=== PATIENT | male | born 1955 | race Caucasian/White ===

== ENCOUNTER 2016-07-02 12:39 | Observation (INO) ==
[2016-07-02] MEDS ORDERED: Aspirin 325 MG TABLET PO ONE (13:19)
--- NOTE | 2016-07-02 13:24 | Emergency Department Note ---
Disposition Clinical Impression: Vertigo, Disequilibrium Fatigue Qualifiers: Fatigue type: unspecified Qualified Code(s): R53.83 - Other fatigue Disposition: Admitted As Inpatient Condition: Good Referrals: Pattie Bloom CNP [Primary Care Provider] - Forms: ED Satisfaction Letter Time of Disposition: 19:06 Dizziness HPI - General Chief Complaint: ED Dizziness Stated Complaint: Dizzy, falls Time Seen by Provider: 07/02/16 12:52 Source: patient Mode of arrival: ambulatory Limitations: no limitations Nursing Notes Reviewed: Yes Vital Signs Reviewed: Yes - History of Present Illness HPI Narrative: Patient is a 60 year old male with PMHx of CAD, previous [place], previous triple bypass, HTN, high cholesterol, previous stroke, TIA. Patient presents today due to vertigo. Patient states that this morning, he felt dizzy and felt that the room was spinning. When getting up to walk, he felt off balance and fell over. He denies any loss of consciousness. No numbness, tingling, weakness. He does have generalized fatigue. Denies any chest pain, shortness of breath, abdominal pain, fevers, nausea, vomiting. - Related Data Home Medications Medication Instructions Recorded Confirmed Albuterol Sulfate [Proair Hfa] 2 puff IH Q4H PRN 07/02/16 07/02/16 Aspirin 81 mg PO DAILY 07/02/16 07/02/16 Atorvastatin [Lipitor] 40 mg PO HS 07/02/16 07/02/16 Budesonide/Formoterol 160/4.5 2 puff IH BIDR 07/02/16 07/02/16 [Symbicort 160/4.5] Carvedilol [Coreg] 25 mg PO BID 07/02/16 07/02/16 Clopidogrel [Plavix] 75 mg PO DAILY 07/02/16 07/02/16 Furosemide [Lasix] 20 mg PO DAILY 07/02/16 07/02/16 Losartan [Cozaar] 25 mg PO DAILY 07/02/16 07/02/16 Allergies Allergy/AdvReac Type Severity Reaction Status Date / Time cephalexin [From Keflex] Allergy Swelling Verified 06/26/15 04:35 of Lip/Tongue/Throat Penicillins Allergy Hives Verified 06/26/15 04:35 lisinopril AdvReac Cough Verified 07/02/16 16:05 Constitutional: Denies: fever ENT ED: Denies: ear pain, throat pain Cardiovascular: Denies: chest pain, palpitations, dyspnea on exertion Respiratory: Denies: cough, dyspnea, wheezes Gastrointestinal: Denies: abdominal pain, nausea Genitourinary: Denies: urgency, dysuria, frequency Musculoskeletal: Denies: back pain, neck pain Integumentary: Denies: rash Neurological: Reports: vertigo. Denies: headache, weakness, numbness, paresthesias Psychiatric: Denies: anxiety, depression Past Medical History - Past Medical History Attestation: Yes The following information was validated with the patient. Source: patient Medical history: Reports: CHF, COPD, coronary artery disease, hyperlipidemia, hypertension, myocardial infarction Psychiatric history: Reports: no psych history - Social History Smoking Status: Former smoker Smokeless Tobacco Status: No Alcohol use: Reports: occasionally Drug use: Reports: none Physical Exam - General Limitations: no limitations General appearance: alert, in no apparent distress - Head Head exam: atraumatic, normocephalic, normal inspection - Eye Eye exam: Present: normal appearance, PERRL, EOMI - ENT ENT exam: normal exam, normal oropharynx, mucous membranes moist - Neck Neck exam: Present: normal inspection, full ROM, trachea midline - Chest Chest inspection: Present: normal inspection, symmetric chest wall rise - Respiratory Respiratory exam: Present: normal lung sounds bilaterally. Absent: respiratory distress, wheezes, stridor - Cardiovascular Cardiovascular exam: Present: regular rate, normal rhythm, normal heart sounds - Abdominal Exam Abdominal exam: Present: soft, Non-Tender. Absent: tenderness, distention, guarding, rebound, rigidity - Extremities Exam Extremities exam: Present: normal inspection, full ROM. Absent: tenderness, pedal edema - Back Exam Back exam: Present: normal inspection, full ROM. Absent: tenderness - Neurological Exam Neurological exam: Present: alert, oriented X3, CN II-XII intact. Absent: motor sensory deficit - Psychiatric Psychiatric exam: Present: normal affect, normal mood - Skin Skin exam: Present: warm, dry, intact, normal color Course Course Narrative: Vitals within normal limits on exam. Physical exam is fairly benign. Not able to reproduce vertigo symptoms with moving the patient's head left and right. No focal neurologic deficits. Due to extensive cardiac history, we will obtain cardiac workup. We will also obtain head CT due to vertigo and generalized fatigue. 16:22 workup was negative. Head CT negative, chest x-ray negative. Patient still having vertigo symptoms when lying down. States that the meclizine did not help. He is also having disequilibrium with gait. I talked to the hospitalist and she requested that we get a stat MRI of the head/brain to assess for any cerebellar stroke. This is been ordered. Patient's been updated and is agreeable with plan. 19:05 imaging was negative for any acute abnormality. MRI of the brain does show old cerebellar infarcts. Patient is still having significant vertigo despite medications and generalized fatigue. We will admit for further cardiac workup and further vertigo workup mgmt. Chest X-Ray 07/02/16 13:16 IMPRESSION: No evidence of acute disease. D/ / Isak Villalta MD / Isak Villalta MD Interpreting Provider: Isak Villalta MD Head CT 07/02/16 13:16 IMPRESSION: No acute intracranial abnormality. Mild chronic microvascular disease. 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 D/ / Wilfredo Kingston MD / Wilfredo Kingston MD Interpreting Provider: Wilfredo Kingston MD Brain MRI 07/02/16 16:18 IMPRESSION: No acute intracranial abnormality. 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 Mild parenchymal volume loss. Mild chronic microvascular disease. Unremarkable noncontrast MRA of the head and neck. D/ / Wilfredo Kingston MD / Wilfredo Kingston MD Interpreting Provider: Wilfredo Kingston MD Head MRA 07/02/16 16:18 IMPRESSION: No acute intracranial abnormality. 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 Mild parenchymal volume loss. Mild chronic microvascular disease. Unremarkable noncontrast MRA of the head and neck. D/ / Wilfredo Kingston MD / Wilfredo Kingston MD Interpreting Provider: Wilfredo Kingston MD Neck MRA 07/02/16 16:18 IMPRESSION: No acute intracranial abnormality. 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 Mild parenchymal volume loss. Mild chronic microvascular disease. Unremarkable noncontrast MRA of the head and neck. D/ / Wilferdo Kingston MD / Wilfredo Kingston MD Interpreting Provider: Wilfredo Kingston MD Vital Signs Temperature 97.2 F L 07/02/16 12:41 Pulse Rate 63 07/02/16 12:41 Respiratory Rate 16 07/02/16 12:41 Blood Pressure 124/75 07/02/16 12:41 O2 Sat by Pulse Oximetry 93 L 07/02/16 12:41 Temperature 97.2 F L 07/02/16 12:41 Pulse Rate 65 07/02/16 18:46 Respiratory Rate 18 07/02/16 18:46 Blood Pressure 157/94 07/02/16 18:46 O2 Sat by Pulse Oximetry 95 07/02/16 18:46 Oxygen Delivery Oxygen Delivery Room Air Dizziness - MDM Narrative Medical decision making narrative: I examined this patient and my medical decision-making was reviewed with the CREATIVE/ART DIRECTOR/PA/Advanced Practice Nurse/Resident Physician. I agree with the documented findings, disposition and treatment plan as described except to the extent set forth below. Follow this patient with Dr. Barksdale, agree with his evaluation management plan, supervise care the patient's stay. Patient episode today where he had fallen he was vertiginous. He said he did not lose consciousness denies any injuries. No history of chronic falls nor vertigo. He has no focal deficits on exam here. Getting a laboratory workup and then we will reassess. He is in agreement with this plan. Vitals within normal limits on exam. Physical exam is fairly benign. Not able to reproduce vertigo symptoms with moving the patient's head left and right. No focal neurologic deficits. Due to extensive cardiac history, we will obtain cardiac workup. We will also obtain head CT due to vertigo and generalized fatigue. 16:22 workup was negative. Head CT negative, chest x-ray negative. Patient still having vertigo symptoms when lying down. States that the meclizine did not help. He is also having disequilibrium with gait. I talked to the hospitalist and she requested that we get a stat MRI of the head/brain to assess for any cerebellar stroke. This is been ordered. Patient's been updated and is agreeable with plan. 19:05 imaging was negative for any acute abnormality. MRI of the brain does show old cerebellar infarcts. Patient is still having significant vertigo despite medications and generalized fatigue. We will admit for further cardiac workup and further vertigo workup mgmt. Chest X-Ray 07/02/16 13:16 IMPRESSION: No evidence of acute disease. D/ / Isak Villalta MD / Iska Villalta MD Interpreting Provider: Isak Villalta MD Head CT 07/02/16 13:16 IMPRESSION: No acute intracranial abnormality. Mild chronic microvascular disease. 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 D/ / Wilfredo Kingston MD / Wilfredo Kingston MD Interpreting Provider: Wilfredo Kingston MD 1600 hrs.: Spoke with the patient and he and the daughter agree with admission. Spoke with the hospital service area they will admit patient. director of business services aware. 1620 hrs.: Spoke with hospitalist that one an MRI of the head before they take the patient onto their service. Spoke with MRI and they can do the study. - Medical Records Medical records reviewed: Yes I reviewed the patient's medical records. - Lab Data Lab results reviewed: Yes I reviewed the patient's lab results. Result diagrams: 07/02/16 13:44 07/02/16 13:44 Lab Results 07/02/16 07/02/16 07/02/16 Range/Units 13:44 13:44 13:44 WBC 5.3 (4.3-11.1) K/mcL RBC 5.08 (4.19-5.50) M/mcL Hgb 14.7 (12.9-16.9) g/dL Hct 44.2 (37.5-50.1) % MCV 87.0 (83.0-100.0) fL MCH 28.9 (28.0-33.3) pg MCHC 33.3 (31.6-35.5) g/dL RDW 13.6 (11.5-14.5) % Plt Count 169 (140-400) K/mcL MPV 10.6 (9.4-12.4) fL Immature Gran % 0.6 (0-4) % Seg Neutrophils % 63.4 % Lymphocytes % 25.3 % Monocytes % 5.8 % Eosinophils % 4.1 % Basophils % 0.8 % Neutrophils # 3.4 (1.6-8.9) K/mcL Lymphocytes # 1.4 (0.6-4.6) K/mcL Monocytes # 0.3 (0.0-1.3) K/mcL Eosinophils # 0.2 (0.0-0.6) K/mcL Basophils # 0.0 (0.0-0.2) K/mcL PT (9.4-12.1) Seconds INR APTT (26.0-36.0) Seconds Sodium 138 (136-145) mEq/L Potassium 4.5 (3.5-4.5) mEq/L Chloride 103 (98-109) mEq/L Carbon Dioxide 27 (19-29) mEq/L BUN 21 (8-26) mg/dL Creatinine 1.64 H (0.72-1.25) mg/dL Est GFR ( Amer) 52 L (> 60) Est GFR (Non-Af Amer) 43 L (> 60) BUN/Creatinine Ratio 13 (6-26) Glucose 219 H (70-99) mg/dL Calculated Osmolality 296 (280-300) Calcium 9.2 (8.6-10.8) mg/dL Troponin I 0.01 (0-0.03) ng/mL 07/02/16 Range/Units 13:44 WBC (4.3-11.1) K/mcL RBC (4.19-5.50) M/mcL Hgb (12.9-16.9) g/dL Hct (37.5-50.1) % MCV (83.0-100.0) fL MCH (28.0-33.3) pg MCHC (31.6-35.5) g/dL RDW (11.5-14.5) % Plt Count (140-400) K/mcL MPV (9.4-12.4) fL Immature Gran % (0-4) % Seg Neutrophils % % Lymphocytes % % Monocytes % % Eosinophils % % Basophils % % Neutrophils # (1.6-8.9) K/mcL Lymphocytes # (0.6-4.6) K/mcL Monocytes # (0.0-1.3) K/mcL Eosinophils # (0.0-0.6) K/mcL Basophils # (0.0-0.2) K/mcL PT 11.3 (9.4-12.1) Seconds INR 1.0 APTT 31.6 (26.0-36.0) Seconds Sodium (136-145) mEq/L Potassium (3.5-4.5) mEq/L Chloride (98-109) mEq/L Carbon Dioxide (19-29) mEq/L BUN (8-26) mg/dL Creatinine (0.72-1.25) mg/dL Est GFR ( Amer) (> 60) Est GFR (Non-Af Amer) (> 60) BUN/Creatinine Ratio (6-26) Glucose (70-99) mg/dL Calculated Osmolality (280-300) Calcium (8.6-10.8) mg/dL Troponin I (0-0.03) ng/mL - Radiology Data Radiology results reviewed: Yes I reviewed the patient's radiology results. Chest X-Ray 07/02/16 13:16 IMPRESSION: No evidence of acute disease. D/ / Isak Villalta MD / Isak Villalta MD Interpreting Provider: Isak Villalta MD Head CT 07/02/16 13:16 IMPRESSION: No acute intracranial abnormality. Mild chronic microvascular disease. 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 D/ / Wilfredo Kingston MD / Wilfredo Kingston MD Interpreting Provider: Wilfredo Kingston MD Brain MRI 07/02/16 16:18 IMPRESSION: No acute intracranial abnormality. 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 Mild parenchymal volume loss. Mild chronic microvascular disease. Unremarkable noncontrast MRA of the head and neck. D/ / Wilfredo Kingston MD / Wilfredo Kingston MD Interpreting Provider: Wilfredo Kingston MD Head MRA 07/02/16 16:18 IMPRESSION: No acute intracranial abnormality. 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 Mild parenchymal volume loss. Mild chronic microvascular disease. Unremarkable noncontrast MRA of the head and neck. D/ / Wilfredo Kingston MD / Wilfredo Kingston MD Interpreting Provider: Wilfredo Kingston MD Neck MRA 07/02/16 16:18 IMPRESSION: No acute intracranial abnormality. 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 Mild parenchymal volume loss. Mild chronic microvascular disease. Unremarkable noncontrast MRA of the head and neck. D/ / Wilfredo Kingston MD / Wilfredo Kingston MD Interpreting Provider: Wilfredo Kingston MD - EKG Data EKG attestation: Yes I reviewed and interpreted this EKG. EKG results narrative: 07/02/2016 at 12:56. Normal sinus rhythm. Rate 63. QTC 421. QRS duration 110. There is some ST depression and T-wave inversion in aVL, there is also ST elevation in lead 3 and aVF that are 0.5 mm, all of these changes are present on previous EKG on 06/26/2015 [facility] Situation: Demographics, MOA Background: Presenting Complaint, Relevant PMH, Meds, & Allergies Assessment: Vital Signs, Course and respsone to treatment, Exam Concerns, Patient/Family Expectation, Pertinant Lab Results, Outstanding Labs Recommendation: Barrier(s) to disposition, Recommendation based on pending studies, treatments, or consults Angela Report Given to: Dr. Robert Miller Repor Time: 19:06
[2016-07-02 13:58] LABS: Basophils % 0.8 %; Eosinophils # 0.2 K/mcL (0.0-0.6); Eosinophils % 4.1 %; Hematocrit 44.2 % (37.5-50.1); Hemoglobin 14.7 g/dL (12.9-16.9); Immature Granulocytes % 0.6 % (0-4); Lymphocytes # 1.4 K/mcL (0.6-4.6); Lymphocytes % 25.3 %; Mean Corpuscular HGB Conc 33.3 g/dL (31.6-35.5); Mean Corpuscular Hemoglobin 28.9 pg (28.0-33.3); Mean Platelet Volume 10.6 fL (9.4-12.4); Monocytes # 0.3 K/mcL (0.0-1.3); Monocytes % 5.8 %; Neutrophils # 3.4 K/mcL (1.6-8.9); Platelet Count 169 K/mcL (140-400); Red Blood Count 5.08 M/mcL (4.19-5.50); Red Cell Distribution Width 13.6 % (11.5-14.5); Segmented Neutrophils % 63.4 %
[2016-07-02 14:03] LABS: Prothrombin Time 11.3 Seconds (9.4-12.1)
[2016-07-02 14:05] LABS: Activated Partial Thrombo Time 31.6 Seconds (26.0-36.0)
[2016-07-02 14:12] LABS: Calcium 9.2 mg/dL (8.6-10.8); Potassium 4.5 mEq/L (3.5-4.5)
--- NOTE | 2016-07-02 16:47 | Electrocardiograph Report ---
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
[2016-07-02] MEDS ORDERED: Naloxone 0.4 MG/ML INJ IVP PRN (19:33)
[2016-07-02] MEDS ORDERED: Ondansetron 4 MG/2 ML VIAL IVP PRN (19:33)
[2016-07-02] MEDS ORDERED: Pantoprazole 40 MG VIAL IVP STA (19:33)
[2016-07-02] MEDS ORDERED: *HR* OxyCODONE Immed Rel 5 MG TABLET PO PRN (19:33)
[2016-07-02] MEDS ORDERED: Acetaminophen 325 MG TABLET PO PRN (19:33)
[2016-07-02] MEDS ORDERED: *HR* Morphine 2 MG/ML SYRINGE IVP PRN (19:33)
[2016-07-02] MEDS ORDERED: Mag Hydrox/Al Hydrox/Simeth 30 ML UDC PO PRN (19:33)
[2016-07-02] MEDS ORDERED: Albuterol 2.5 MG/3 ML NEBULIZER IH PRN (19:43)
--- NOTE | 2016-07-02 19:53 | Internal Med History&Physical ---
Date of Encounter: 07/02/16 Time of Encounter: 19:30 Assessment and Plan (1) Positional vertigo Status: Acute . Qualifiers: Laterality: unspecified laterality Qualified Code(s): H81.10 - Benign paroxysmal vertigo, unspecified ear (2) Postural dizziness with presyncope Status: Acute . (3) Potential for falls Status: Acute . (4) Acute kidney injury superimposed on CKD Status: Acute . (5) Hyperglycemia, unspecified Status: Acute . (6) CAD (coronary artery disease), [place] coronary artery Status: Chronic . Qualifiers: [place] vs. transplanted heart: [place] heart Associated angina: angina presence unspecified Qualified Code(s): I25.10 - Atherosclerotic heart disease of [place] coronary artery without angina pectoris (7) S/P CABG x 3 Status: Chronic . (8) Diastolic CHF Status: Chronic . Qualifiers: Congestive heart failure chronicity: unspecified congestive heart failure chronicity Qualified Code(s): I50.30 - Unspecified diastolic (congestive) heart failure (9) Old cerebrovascular accident (CVA) without late effect Status: Chronic . (10) Obesity (BMI 30-39.9) Status: Chronic . (11) COPD (chronic obstructive pulmonary disease) Status: Chronic . Qualifiers: COPD type: unspecified COPD Qualified Code(s): J44.9 - Chronic obstructive pulmonary disease, unspecified (12) Former heavy cigarette smoker (20-39 per day) Status: Chronic . (13) Chronic sinusitis, unspecified Status: Chronic . Qualifiers: Sinusitis location: pansinusitis Qualified Code(s): J32.4 - Chronic pansinusitis (14) MICH (obstructive sleep apnea) Status: Chronic . (15) History of uvulopalatopharyngoplasty Status: Chronic . (16) Anxiety as acute reaction to exceptional stress Status: Acute . (17) H/O chronic ear infection Status: Chronic . Internal Medicine - H&P: HPI Chief complaint: Dizziness/Presyncope. Falls/gait instability. Admitted From: Emergency Dept Plans for Post Hospital Care: Home History of present illness: Mr. Singh is a 60 year old male with history significant for CAD/YGJTy6g/AMIs, diastolic CHF/LVEF 60%, hypertension, dyslipidemia, old left>right cerebellar CVAs/TIAs, COPD, MICH s/p UVP, osteoarthritis, chr sinusitis, H/O chr otitis media/externa in youth, obesity, former smoker. The patient was visited and interviewed and examined. Patient is admitted to [facility] via the emergency department when he presents with complaints of vertigo. He reports that the morning of admission he felt dizzy upon arising from bed in the morning. [place] as if more spinning about him. When attempting to get up to walk daily felt off balance and fell over the back into the bed. He denied any loss of consciousness. Denied any unilateral weakness or paresthesias vision deficit slurred speech. Acknowledges sense of generalized illness and easy fatigability. Denied any fevers chills or sweats. Denied any episodes of chest pain shortness of breath abdominal pain and flank pain headache. Denies any changes in current prescribed medications or indiscretions. Findings in the ED: Temperature 97.2 pulse 60-65 respirations 16-18 BP 124-157/ 75-94 O2 saturation 93-95% room air. WBC 5.3 hemoglobin 14.7 and platelets 169, 000. Differential normal. Metabolic panel normal except creatinine 1.64 GFR 43 with BUN of 21. Glucose 219 with osmolality of 296. Pro time 11.3 INR 1.0 PTT 31.6. Troponin 0.01. Portable chest x-ray demonstrated no acute or active cardiopulmonary process. Clustered calcified granulomata in right midlung noted. CT of the head demonstrated no acute intracranial abnormality. Mild chronic microvascular disease noted. Small infarction in the left cerebellar hemisphere noted. Scattered mild mucosal thickening in paranasal sinuses noted. Bilateral mastoid air cells clear. MRI brain was mild parenchymal volume loss. Scattered foci in the subcortical and periventricular white matter likely related to mild chronic microvascular disease. Old small infarctions in the bilateral cerebellar hemispheres left greater than right. No acute infarct. No mass effect or midline shift. No fluid collection or hydrocephalus. Normal signal voids within major intracranial vessels. Sella and suprasellar region unremarkable. It is benign. Sinuses demonstrated scattered mild mucosal thickening in the paranasal sinuses. Trace bilateral mastoid effusions. Bone and soft tissue benign. MRA head anterior circulation found the internal carotid arteries normal in course and caliber without stenosis. Anterior cerebral and middle cerebral arteries demonstrated no focal stenosis. Anterior communicating artery is patent. Posterior circulation to the procedures this without stenosis. Left dominant vertebral arteries seen. Vertebral and basilar arteries otherwise unremarkable. Bilateral posterior communicating arteries likely hiatal plastic. No intracranial aneurysm seen. MRA of the neck to the aortic benign. Carotid arteries normal in appearance without evidence of flow-limiting stenosis. Internal carotid arteries normal in appearance without evidence of flow-limiting stenosis. Vertebral arteries there is a left dominance with no evidence of flow-limiting stenosis. EKG demonstrated sinus rhythm 63 bpm. Inferior myocardial infarction of indeterminate age with posterior extension noted. Moderate T-wave abnormality. Consider lateral ischemia. Unchanged from previous study of record 2015. Preliminary impressions suggest acute positional dizziness/subjective vertigo with gait disturbance. History suggestive of benign paroxysmal positional vertigo. Initial screening studies nondiagnostic for specific etiology of symptoms. CT of the head and MRI of the brain defined small infarcts in the bilateral cerebellar hemispheres which are old. MRA of the head and neck demonstrated no flow limiting stenotic lesions or aneurysms. No evidence for acute infarct or bleed or mass effect in either studies. Further evaluation will be pursued. The patient is at risk for further clinical decline and morbidity given his defined comorbidities presenting chief complaints and findings. Workup and treatment will proceed comprehensively. Cumulative laboratory and radiographic data base was reviewed, considered and discussed. Pertinent ancillary medical records including ECW and PCI documentation, when available, was reviewed and considered. Given the patient's presenting concerns, past medical history, clinical findings and symptoms, he is admitted at this time will undergo further evaluation and disposition. Orders were written as per the computerized physician cut order hand system.......................................................................... .................... Consultative opinions will be sought as clinical circumstances justify. Initial consultative opinions has been requested of neurology and ENT. Pain management needs will be addressed. Laboratory and radiographic data base will be updated as appropriate. Studies include: CPK, prolactin, cardiac injury panel, BNP, metabolic and hematologic panel, magnesium, phosphorus, ionized calcium, thyroid panel, lipid profile, A1c , C-peptide, CRP, sedimentation rate, respiratory virus panel, blood gas, lactic acid, UA, UDS, ethanol, b12, folate, coag panel, serologies, etc., Precautions: Aspiration, fall, delirium protocol/surveillance initiated. Telemetry with continuous hemodynamic monitoring and pulse oximetry initiated. Orthostatic vital signs. Empiric antibiotic coverage: oral Doxycycline. Empiric oral Meclizine therapy plus Mucinex and Flonase. Special studies: CT head,MRI brain, MRA head and neck, chest x-ray, telemetry, EKG, echocardiogram. Pulmonary toilet: Incentive spirometry, aerosol bronchodilator, mucolytic, antitussive, supplemental oxygen. Corticosteroid therapy PRN. CPAP/BiPAP supplemental oxygen delivery PRN. Aerosol Mucomyst therapy PRN. Fluid and electrolyte repletion efforts will proceed. Careful attention to fluid balance and renal recovery will be emphasized. Avoidance of nephrotoxic exposure and adverse drug drug interaction in the setting of impaired renal function will be monitored closely. Acute coronary syndrome protocols/surveillance initiated. Acute [employer] injury protocols/surveillance initiated. DVT and PUD prophylaxis initiated: PPI therapy, intermittent pneumatic cuffs/ TEDs. Subcutaneous heparin. Early ambulation will be encouraged. Immunization updates recommended. Influenza and pneumococcal vaccinations as part of ongoing preventative healthcare recommendations strongly recommended. Smoking cessation counseling briefly addressed. Patient is a former smoker. Advanced care directive discussion briefly addressed. Patient does not declare any healthcare restrictions at this time. Cardiovascular risk appraisal and cardiovascular risk reduction efforts will be emphasized. Physical and occupational therapy consulted to evaluate/assess patient's functional capacity and progress mobility as circumstances permit. Outpatient medication schedules will be reviewed, confirmed and facilitated as appropriate. Reconciliation of home treatments including adjustments, substitutions and reintroduction into the treatment regimen will address necessary maintenance therapies for chronic pre-existing medical conditions. Plan of care has been reviewed and discussed in detail with the patient. Questions addressed. Hospital course will depend upon clinical findings, treatment response and potential consultative interventions. Patient is at risk for further acute clinical decline and morbidity due to presenting chief complaints, clinical findings and comorbidities. Condition is serious. Prognosis is cautiously optimistic. CODE STATUS is full. Past Med Surg Social Fam HX - Past Medical History Source: old records reviewed Medical history: arthritis, CHF (2015 echocardiogram demonstrated LVEF 60%. Normal left and right ventricular size and function. Mild diastolic dysfunction of left ventricle. Left and right atrial size. No significant valvular dysfunction.), COPD (July 2015 A function testing demonstrated moderate obstructive ventilatory impairment with significant bronchodilator response. FEV1 1.81. 55% predicted. Lung volumes demonstrate increased residual volume suggesting air trapping. Volume loop was consistent with obstructive pattern. Diffusion capacity demonstrated moderate gas exchange abnormality. MICH s/p UVP.), coronary artery disease (Severe three-vessel coronary artery disease. Two thirds bypass grafts patent and left heart catheterization July 2013.), CVA, hyperlipidemia, hypertension, myocardial infarction (May 2015 EKG demonstrated sinus rhythm at 81 bpm. Q waves demonstrated that leads 3 and aVF. Inferior wall myocardial infarction of indeterminate age. Posterior extension suggested by prominent R waves in V1 and V2. Nonspecific ST-T wave changes. Possible biatrial abnormality.), osteoporosis, renal disease (Chronic kidney disease stage III.), TIA, other ( Obesity. Obstructive sleep apnea.) Psychiatric history: no psych history, other - Past Surgical History Surgical History: angioplasty/stent, coronary bypass (CABG), sinus surgery ( Tonsillectomy adenoidectomy.), vasectomy, other - Social History Smoking Status: Former smoker Smokeless Tobacco Status: No Alcohol use: occasionally Drug use: none Occupational status: employed Current living situation: Home - Independent Activity Level: Mostly sedentary Recent Out of Country Travel Within the Last 8 Weeks: No Exposure or Possible Exposure to Illness During Travel: No - Family History Mother Living Status: Cause of : car accident Hx Family Cardiac Disorders: Yes (aneursym, HTN) Hx Family Genitourinary Disorders: Yes (Cancer) Father Living Status: Hx Family Respiratory Disorders: Yes (COPD) Internal Medicine - H&P: Meds Albuterol Sulfate [Proair Hfa] 2 puff IH Q4H PRN 07/02/16 [History] Aspirin 81 mg PO DAILY 07/02/16 [History] Atorvastatin [Lipitor] 40 mg PO HS 07/02/16 [History] Budesonide/Formoterol 160/4.5 [Symbicort 160/4.5] 2 puff IH BIDR 07/02/16 [ History] Carvedilol [Coreg] 25 mg PO BID 07/02/16 [History] Clopidogrel [Plavix] 75 mg PO DAILY 07/02/16 [History] Furosemide [Lasix] 20 mg PO DAILY 07/02/16 [History] Losartan [Cozaar] 25 mg PO DAILY 07/02/16 [History] Benzonatate [Tessalon] 200 mg PO TID PRN #15 capsule 07/04/16 [Rx] Diazepam [Valium] 2 mg PO TID PRN #30 tablet 07/04/16 [Rx] Docusate [Colace] 100 mg PO BID #20 capsule 07/04/16 [Rx] Fluticasone Propionate Nasal [Flonase] 50 mcg NS BID #1 bottle 07/04/16 [Rx] Meclizine [Antivert] 25 mg PO TID PRN #15 tablet 07/04/16 [Rx] Allergies cephalexin [From Keflex] Allergy (Verified 06/26/15 04:35) Swelling of Lip/Tongue/Throat Penicillins Allergy (Verified 06/26/15 04:35) Hives lisinopril Adverse Reaction (Verified 07/02/16 16:05) Cough All Systems PM: A 10-system review of systems was performed and is negative for pertinent findings except as documented above in the HPI. - Constitutional Constitutional: as per HPI, fatigue, falls, malaise, weakness, other, no chills , no fever(s), no night sweats - EENT Eyes: as per HPI, blurry vision, other visual disturbances, no change in vision , no discharge, no pain, no photophobia Ears: as per HPI, other, no ear discharge, no ear pain, no tinnitus Nose, mouth and throat: as per HPI, nasal congestion, post-nasal drip, sinus pressure, no dysphagia, no nasal discharge, no neck pain, no sore throat - Cardiovascular Cardiovascular ROS IM: as per HPI, lightheadedness, other, no chest pain, no diaphoresis, no dyspnea, no palpitations, no syncope - Respiratory Respiratory: as per HPI, no cough, no dyspnea, no wheezing, no excessive phlegm production - Gastrointestinal Gastrointestinal: as per HPI, no abdominal pain, no diarrhea, no hematemesis, no hematochezia, no melena, no nausea, no vomiting - Genitourinary Genitourinary ROS male: as per HPI - Musculoskeletal Musculoskeletal ROS IM: as per HPI, no numbness, no tingling - Integumentary Integumentary IM: as per HPI, no rash, no unusual bruising - Neurological Neurological ROS: as per HPI, abnormal gait, disequilibrium, dizziness, frequent falls, vertigo, weakness, other, no confusion, no convulsions, no focal weakness, no numbness, no tingling, no tremor(s) - Psychiatric Psychiatric: as per HPI - Endocrine Endocrine IM: as per HPI - Hematologic/Lymphatic Hematologic/Lymphatic: as per HPI, no easy bruising - Allergic/Immunologic Allergic/Immunologic: as per HPI - Constitutional Vitals: Temp Pulse Resp BP Pulse Ox 97.2 F L 65 18 151/72 95 07/02/16 12:41 07/02/16 18:46 07/02/16 19:37 07/02/16 19:37 07/02/16 18:46 General appearance: Present: cooperative, A&O X 3, morbidly obese, pleasant, no acute distress, answers questions appropriately - Head Head exam: Present: atraumatic, normocephalic - Eye Eye exam: Present: EOMI, PERRL, conjuntiva pink, sclera anicteric Pupils: Present: normal accommodation, PERRL - ENT ENT exam: Present: mucous membranes moist, normal external ear exam, normal oropharynx - Neck Neck exam general surgery: Present: full ROM, supple, trachea midline. Absent: lymphadenopathy, tenderness, nuchal rigidity, thyromegaly - Respiratory Respiratory exam: Present: decreased breath sounds, CTAB. Absent: accessory muscle use, rales, rhonchi, wheezes - Cardiovascular Cardiovascular exam: Present: distant heart sounds, RRR, +S1, +S2. Absent: diastolic murmur, gallop, rubs, systolic murmur - GI/Abdominal GI/Abdominal exam: Present: normal bowel sounds, soft, no peritoneal signs. Absent: distended, tenderness - Extremities Exam Extremities exam: Present: full ROM, warm, radial pulses palpable and symetrical. Absent: calf tenderness, cyanotic, pedal edema - Neurological Exam Neurological exam: Present: alert, CN II-XII intact, oriented X3, no focal deficits. Absent: pronater drift, facial droop, speech deficit - Psychiatric Psychiatric exam: Present: normal affect, normal mood - Skin Skin exam: Present: dry, intact, warm. Absent: petechiae, rash, urticaria, vesicles Internal Med - H&P Results - Labs CBC & Chem 7: 07/02/16 13:44 07/03/16 00:39 Labs: Abnormal lab results ESR 25 mm/hr (0-10) H 07/02/16 13:44 VBG pO2 60 mmHg (25-40) H 07/03/16 00:39 Creatinine 1.55 mg/dL (0.72-1.25) H 07/03/16 00:39 Est GFR ( Amer) 56 (> 60) L 07/03/16 00:39 Est GFR (Non-Af Amer) 46 (> 60) L 07/03/16 00:39 Glucose 167 mg/dL (70-99) H 07/03/16 00:39 Hemoglobin A1c 7.9 % (-5.6) H 07/03/16 00:39 C-Peptide 9.7 ng/mL (0.8-3.5) H 07/03/16 00:39 C-Reactive Protein 9 mg/L (Less than 5) H 07/02/16 20:23 Albumin 3.3 g/dL (3.5-5.0) L 07/03/16 00:39 Albumin/Globulin Ratio 1.0 (1.1-2.2) L 07/03/16 00:39 HDL Cholesterol 27 mg/dL (40-59) L 07/03/16 00:39 Cholesterol/HDL Ratio 5.0 (0-4.9) H 07/03/16 00:39 Urine Glucose (UA) 250 mg/dL (Normal) H 07/03/16 06:00 Laboratory Last Values WBC 5.3 K/mcL (4.3-11.1) 07/02/16 13:44 RBC 5.08 M/mcL (4.19-5.50) 07/02/16 13:44 Hgb 14.7 g/dL (12.9-16.9) 07/02/16 13:44 Hct 44.2 % (37.5-50.1) 07/02/16 13:44 MCV 87.0 fL (83.0-100.0) 07/02/16 13:44 MCH 28.9 pg (28.0-33.3) 07/02/16 13:44 MCHC 33.3 g/dL (31.6-35.5) 07/02/16 13:44 RDW 13.6 % (11.5-14.5) 07/02/16 13:44 Plt Count 169 K/mcL (140-400) 07/02/16 13:44 MPV 10.6 fL (9.4-12.4) 07/02/16 13:44 Immature Gran % 0.6 % (0-4) 07/02/16 13:44 Seg Neutrophils % 63.4 % 07/02/16 13:44 Lymphocytes % 25.3 % 07/02/16 13:44 Monocytes % 5.8 % 07/02/16 13:44 Eosinophils % 4.1 % 07/02/16 13:44 Basophils % 0.8 % 07/02/16 13:44 Neutrophils # 3.4 K/mcL (1.6-8.9) 07/02/16 13:44 Lymphocytes # 1.4 K/mcL (0.6-4.6) 07/02/16 13:44 Monocytes # 0.3 K/mcL (0.0-1.3) 07/02/16 13:44 Eosinophils # 0.2 K/mcL (0.0-0.6) 07/02/16 13:44 Basophils # 0.0 K/mcL (0.0-0.2) 07/02/16 13:44 ESR 25 mm/hr (0-10) H 07/02/16 13:44 PT 11.3 Seconds (9.4-12.1) 07/02/16 13:44 INR 1.0 07/02/16 13:44 APTT 31.6 Seconds (26.0-36.0) 07/02/16 13:44 VBG pH 7.41 pH Units (7.32-7.42) 07/03/16 00:39 VBG pCO2 42 mmHg (41-51) 07/03/16 00:39 VBG pO2 60 mmHg (25-40) H 07/03/16 00:39 VBG HCO3 26.6 mEq/L (21-27) 07/03/16 00:39 Sodium 138 mEq/L (136-145) 07/03/16 00:39 Potassium 4.1 mEq/L (3.5-4.5) 07/03/16 00:39 Chloride 106 mEq/L (98-109) 07/03/16 00:39 Carbon Dioxide 23 mEq/L (19-29) 07/03/16 00:39 BUN 20 mg/dL (8-26) 07/03/16 00:39 Creatinine 1.55 mg/dL (0.72-1.25) H 07/03/16 00:39 Est GFR ( Amer) 56 (> 60) L 07/03/16 00:39 Est GFR (Non-Af Amer) 46 (> 60) L 07/03/16 00:39 BUN/Creatinine Ratio 13 (6-26) 07/03/16 00:39 Glucose 167 mg/dL (70-99) H 07/03/16 00:39 Est Mean Plasma Glucose 180 mg/dl 07/03/16 00:39 Hemoglobin A1c 7.9 % (-5.6) H 07/03/16 00:39 C-Peptide 9.7 ng/mL (0.8-3.5) H 07/03/16 00:39 Calculated Osmolality 292 (280-300) 07/03/16 00:39 Calcium 8.9 mg/dL (8.6-10.8) 07/03/16 00:39 Phosphorus 3.0 mg/dL (2.3-4.7) 07/02/16 20:23 Magnesium 1.8 mg/dL (1.6-2.6) 07/02/16 20:23 Total Bilirubin 1.0 mg/dL (0.2-1.2) 07/03/16 00:39 AST 22 Units/L (5-34) 07/03/16 00:39 ALT 45 Units/L (0-55) 07/03/16 00:39 Alkaline Phosphatase 99 Units/L (38-126) 07/03/16 00:39 Ammonia 30 mcmol/L (18-72) 07/03/16 00:39 Troponin I 0.01 ng/mL (0-0.03) 07/03/16 00:39 C-Reactive Protein 9 mg/L (Less than 5) H 07/02/16 20:23 B-Natriuretic Peptide 56 pg/mL (0-100) 07/03/16 00:39 Serum Total Protein 6.5 g/dL (6.0-8.3) 07/03/16 00:39 Albumin 3.3 g/dL (3.5-5.0) L 07/03/16 00:39 Globulin 3.2 g/dL (2.4-3.5) 07/03/16 00:39 Albumin/Globulin Ratio 1.0 (1.1-2.2) L 07/03/16 00:39 Triglycerides 148 mg/dL (< 150) 07/03/16 00:39 Cholesterol 134 mg/dL (< 200) 07/03/16 00:39 LDL Cholesterol, Calc 77 mg/dL (0-99) 02 00:39 VLDL Cholesterol, Calc 30 mg/dL (< 31) 07/03/16 00:39 HDL Cholesterol 27 mg/dL (40-59) L 07/03/16 00:39 Cholesterol/HDL Ratio 5.0 (0-4.9) H 07/03/16 00:39 Vitamin B12 554 pg/mL (213-816) 07/03/16 00:39 Folate 10.9 ng/mL (7.0-31.4) 07/03/16 00:39 TSH 1.949 mcIU/mL (0.350-4.840) 07/02/16 20:23 Free T4 1.13 ng/dl (0.70-1.48) 07/03/16 00:39 Free T3 2.66 pg/mL (1.71-3.71) 07/03/16 00:39 Prolactin 4.68 ng/mL (3.46-19.40) 07/02/16 20:23 Urine Color Yellow (Yellow) 07/03/16 06:00 Urine Clarity Clear (Clear) 07/03/16 06:00 Urine pH 6.0 pH Units (5.0-8.0) 07/03/16 06:00 Ur Specific [place] 1.022 (1.010-1.025) 07/03/16 06:00 Urine Protein Negative mg/dL (Neg-Trace) 07/03/16 06:00 Urine Glucose (UA) 250 mg/dL (Normal) H 07/03/16 06:00 Urine Ketones Negative mg/dL (Negative) 07/03/16 06:00 Urine Blood Negative (Negative) 07/03/16 06:00 Urine Nitrite Negative (Negative) 07/03/16 06:00 Urine Bilirubin Negative (Negative) 07/03/16 06:00 Urine Urobilinogen Normal mg/dL (Normal) 07/03/16 06:00 Ur Leukocyte Esterase Negative (Negative) 07/03/16 06:00 Urine Opiates Screen Negative ng/mL (Ncpfmg=155) 07/03/16 06:00 Ur Barbiturates Screen Negative ng/mL (Bxkuar=550) 07/03/16 06:00 Ur Phencyclidine Scrn Negative ng/mL (Cutoff=25) 07/03/16 06:00 Ur Amphetamines Screen Negative ng/mL (Dsthfa=7752) 07/03/16 06:00 U Benzodiazepines Scrn Negative ng/mL (Vfzmns=042) 07/03/16 06:00 Urine Cocaine Screen Negative ng/mL (Cutoff= 300) 07/03/16 06:00 U Marijuana (THC) Screen Negative ng/mL (Cutoff = 50) 07/03/16 06:00 Ethyl Alcohol < 10 mg/dL (0-10) 07/02/16 20:23 - Impressions Vital Signs Temp Pulse Pulse Pulse Pulse Resp BP 07/02/16 19:37 18 151/72 07/02/16 18:46 65 18 157/94 07/02/16 15:58 72 18 144/85 07/02/16 13:09 64 66 70 07/02/16 12:41 97.2 F L 63 16 124/75 BP BP BP Pulse Ox 07/02/16 19:37 07/02/16 18:46 95 07/02/16 15:58 98 07/02/16 13:09 144/92 134/89 126/79 07/02/16 12:41 93 L Intake and Output 07/02/16 07/02/16 07/02/16 07:59 15:59 23:59 Other: Weight 104.326 kg Patient Weight 07/02/16 23:59 Weight 104.326 kg Short CBC 07/02/16 Range/Units 13:44 WBC 5.3 (4.3-11.1) K/mcL Hgb 14.7 (12.9-16.9) g/dL Hct 44.2 (37.5-50.1) % Plt Count 169 (140-400) K/mcL Neutrophils # 3.4 (1.6-8.9) K/mcL BMP 07/02/16 Range/Units 13:44 Sodium 138 (136-145) mEq/L Potassium 4.5 (3.5-4.5) mEq/L Chloride 103 (98-109) mEq/L Carbon Dioxide 27 (19-29) mEq/L BUN 21 (8-26) mg/dL Creatinine 1.64 H (0.72-1.25) mg/dL Glucose 219 H (70-99) mg/dL Calcium 9.2 (8.6-10.8) mg/dL Cardiac Enzymes 07/02/16 Range/Units 13:44 Troponin I 0.01 (0-0.03) ng/mL Abnormal lab results Creatinine 1.64 mg/dL (0.72-1.25) H 07/02/16 13:44 Est GFR ( Amer) 52 (> 60) L 07/02/16 13:44 Est GFR (Non-Af Amer) 43 (> 60) L 07/02/16 13:44 Glucose 219 mg/dL (70-99) H 07/02/16 13:44 Allergies Allergy/AdvReac Type Severity Reaction Status Date / Time cephalexin [From Keflex] Allergy Swelling Verified 06/26/15 04:35 of Lip/Tongue/Throat Penicillins Allergy Hives Verified 06/26/15 04:35 lisinopril AdvReac Cough Verified 07/02/16 16:05 Laboratory Results WBC 5.3 K/mcL (4.3-11.1) 07/02/16 13:44 RBC 5.08 M/mcL (4.19-5.50) 07/02/16 13:44 Hgb 14.7 g/dL (12.9-16.9) 07/02/16 13:44 Hct 44.2 % (37.5-50.1) 07/02/16 13:44 MCV 87.0 fL (83.0-100.0) 07/02/16 13:44 MCH 28.9 pg (28.0-33.3) 07/02/16 13:44 MCHC 33.3 g/dL (31.6-35.5) 07/02/16 13:44 RDW 13.6 % (11.5-14.5) 07/02/16 13:44 Plt Count 169 K/mcL (140-400) 07/02/16 13:44 MPV 10.6 fL (9.4-12.4) 07/02/16 13:44 Immature Gran % 0.6 % (0-4) 07/02/16 13:44 Seg Neutrophils % 63.4 % 07/02/16 13:44 Lymphocytes % 25.3 % 07/02/16 13:44 Monocytes % 5.8 % 07/02/16 13:44 Eosinophils % 4.1 % 07/02/16 13:44 Basophils % 0.8 % 07/02/16 13:44 Neutrophils # 3.4 K/mcL (1.6-8.9) 07/02/16 13:44 Lymphocytes # 1.4 K/mcL (0.6-4.6) 07/02/16 13:44 Monocytes # 0.3 K/mcL (0.0-1.3) 07/02/16 13:44 Eosinophils # 0.2 K/mcL (0.0-0.6) 07/02/16 13:44 Basophils # 0.0 K/mcL (0.0-0.2) 07/02/16 13:44 PT 11.3 Seconds (9.4-12.1) 07/02/16 13:44 INR 1.0 07/02/16 13:44 APTT 31.6 Seconds (26.0-36.0) 07/02/16 13:44 Sodium 138 mEq/L (136-145) 07/02/16 13:44 Potassium 4.5 mEq/L (3.5-4.5) 07/02/16 13:44 Chloride 103 mEq/L (98-109) 07/02/16 13:44 Carbon Dioxide 27 mEq/L (19-29) 07/02/16 13:44 BUN 21 mg/dL (8-26) 07/02/16 13:44 Creatinine 1.64 mg/dL (0.72-1.25) H 07/02/16 13:44 Est GFR ( Amer) 52 (> 60) L 07/02/16 13:44 Est GFR (Non-Af Amer) 43 (> 60) L 07/02/16 13:44 BUN/Creatinine Ratio 13 (6-26) 07/02/16 13:44 Glucose 219 mg/dL (70-99) H 07/02/16 13:44 Calculated Osmolality 296 (280-300) 07/02/16 13:44 Calcium 9.2 mg/dL (8.6-10.8) 07/02/16 13:44 Troponin I 0.01 ng/mL (0-0.03) 07/02/16 13:44 Impressions Chest X-Ray 07/02/16 13:16 IMPRESSION: No evidence of acute disease. D/ / Isak Villalta MD / Isak Villalta MD Interpreting Provider: Isak Villalta MD Head CT 07/02/16 13:16 IMPRESSION: No acute intracranial abnormality. Mild chronic microvascular disease. 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 D/ / Wilfredo Kingston MD / Wilfredo Kingston MD Interpreting Provider: Wilfredo Kingston MD Brain MRI 07/02/16 16:18 IMPRESSION: No acute intracranial abnormality. 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 Mild parenchymal volume loss. Mild chronic microvascular disease. Unremarkable noncontrast MRA of the head and neck. D/ / Wilfredo Kingston MD / Wiflredo Kingston MD Interpreting Provider: Wilfredo Kingston MD Head MRA 07/02/16 16:18 IMPRESSION: No acute intracranial abnormality. 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 Mild parenchymal volume loss. Mild chronic microvascular disease. Unremarkable noncontrast MRA of the head and neck. D/ / Wilfredo Kingston MD / Wilfredo Kingston MD Interpreting Provider: Wilfredo Kingston MD Neck MRA 07/02/16 16:18
[2016-07-02] MEDS ORDERED: Benzonatate 100 MG CAPSULE PO PRN (20:19)
[2016-07-02 20:55] LABS: Magnesium 1.8 mg/dL (1.6-2.6)
[2016-07-02 21:28] LABS: Thyroid Stimulating Hormone 1.949 mcIU/mL (0.350-4.840)
[2016-07-02 21:40] LABS: Prolactin 4.68 ng/mL (3.46-19.40)
[2016-07-02] MEDS ORDERED: methylPREDNISolone 125 MG/2 ML VIAL IVP STA (22:07)
[2016-07-02] MEDS: Fluticasone Propionate Nasal 50 MCG/SPRAY BOTTLE NS SCH (22:07)
[2016-07-02] MEDS: 0.9 % Sodium Chloride 1,000 ML IVC SCH (22:10)
[2016-07-02] MEDS: Ipratropium/Albuterol Neb 3 ML IH SCH (22:42)
[2016-07-02] MEDS: Budesonide/Formoterol 160/4.5 MDI IH SCH (22:42)
[2016-07-02] MEDS: *HR* Heparin 5,000 UNIT/ML VIAL SQ SCH (23:07)
[2016-07-03 01:11] LABS: VBG HCO3 26.6 mEq/L (21-27); VBG PH 7.41 pH Units (7.32-7.42)
[2016-07-03 01:15] LABS: Albumin 3.3 g/dL (3.5-5.0); Calcium 8.9 mg/dL (8.6-10.8); Globulin 3.2 g/dL (2.4-3.5); Potassium 4.1 mEq/L (3.5-4.5); Total Protein 6.5 g/dL (6.0-8.3)
[2016-07-03 01:33] LABS: Hemoglobin A1C 7.9 %
[2016-07-03 01:46] LABS: Folate 10.9 ng/mL (7.0-31.4)
[2016-07-03 01:57] LABS: Triiodothyronine (T3) Free 2.66 pg/mL (1.71-3.71)
[2016-07-03] MEDS: Ipratropium/Albuterol Neb 3 ML IH SCH ×4 (05:01→23:19)
[2016-07-03] MEDS: *HR* Heparin 5,000 UNIT/ML VIAL SQ SCH ×3 (06:01→23:23)
[2016-07-03 06:26] LABS: Bilirubin,Urine Negative (Negative); Blood,Urine Negative (Negative); Clarity,Urine Clear (Clear); Color,Urine Yellow (Yellow); Glucose,Urine (UA) 250 mg/dL (Normal); Ketones,Urine Negative (Negative); Leukocyte Esterase,Urine Negative (Negative); Nitrite,Urine Negative (Negative); Protein,Urine Negative (Neg-Trace); Specific Gravity,Urine 1.022 (1.010-1.025); Urobilinogen,Urine Normal (Normal)
[2016-07-03 06:29] LABS: Amphetamine Screen,Urine Negative ng/mL (Cutoff=1000); Barbiturate Screen,Urine Negative ng/mL (Cutoff=200); Benzodiazepines Screen,Urine Negative ng/mL (Cutoff=200); Cannabinoid Screen,Urine Negative ng/mL (Cutoff = 50); Cocaine Screen,Urine Negative ng/mL (Cutoff= 300); Opiate Screen,Urine Negative ng/mL (Cutoff=300); Phencyclidine Screen,Urine Negative ng/mL (Cutoff=25)
[2016-07-03] MEDS ORDERED: MethylPREDNISolone 40 MG/ML VIAL IVP SCH (09:00)
[2016-07-03] MEDS: Aspirin 81 MG TAB.CHEW PO SCH (10:12)
[2016-07-03] MEDS: Fluticasone Propionate Nasal 50 MCG/SPRAY BOTTLE NS SCH ×2 (10:14→20:31)
--- NOTE | 2016-07-03 11:02 | ECHO - Doppler Report ---
Echocardiogram Name: Polo Singh Date of Study: 07/03/2016 Date: 1955 Ht: 67.0 in Medical Record#: [id number] Age: 60 Wt: 241.0 lb Gender: Male BSA: 2.19 Order #: [id number] Location: [facility] Room #: [id number] Reading Physician: Angélica Fabian DO Sample Cutter: Sunadr Eng RDCS Ordering Physician: Mega Bloom MD Primary Physician: Pattie Bloom CNP Indications: Presyncope Impressions: LVEF 60%. Normal left ventricular size and systolic function. There is evidence of mild diastolic dysfunction of the left ventricle. Normal right ventricular size and function. Mild to moderate aortic stenosis. No pulmonary hypertension. Left Ventricular Wall Motion: Rest Echo Findings All wall segments showed normal motion. Findings: Study Quality * Technically adequate exam. ECG Findings * Normal sinus rhythm. Left Ventricle * LVEF 60%. * Normal LV chamber size, wall thickness and function. * Mild left ventricular diastolic dysfunction. Aortic Valve * No aortic regurgitation. * Mild to moderate aortic stenosis. PV 2.3, MG 11 mmHg, DI 0.37, ABIGAIL 1.2cm2 * Aortic valve not well visualized. Mitral Valve * Normal mitral valve structure. * No mitral stenosis. * Trace mitral regurgitation. Tricuspid Valve * Tricuspid valve not well visualized. * Trace tricuspid regurgitation. Pulmonic Valve * Pulmonic valve is not well visualized. * No pulmonic stenosis. * No pulmonic regurgitation. Pulmonary Artery * Pulmonary artery not well visualized. Right Ventricle * Normal right ventricular structure and function. Left Atrium * Normal left atrial size. Right Atrium * Normal right atrial size. Interatrial Septum * No evidence of PFO by color Doppler. IVC * The IVC is not well evaluated. Pericardium * There is no pericardial effusion present. Aorta * Normally sized aortic root. History Hypertension Hypercholesteremia Family History of CAD History of CAD/PTCA Myocardial Infarction Coronary Artery Bypass Graft 08/05/15 a Previous Echo was performed. Measurements: BP: 150/ 90 2D Normal Values IVSd: .90 cm 0.6 - 1.0 cm LVIDd: 4.73 cm 3.7 - 5.6 cm LVPWd: .99 cm 0.6 - 1.1 cm LVIDs: 3.30 cm 1.5 - 3.6 cm AO: 2.90 cm < 4.0 cm LA: 3.70 cm 2.0 - 4.0cm %FS: 30.20 cm >25 % LVOT Diam: 2.00 cm LA volume: 44 Mitral Valve Peak E:.68 m/sec Peak A:.92 m/sec E/A Ratio:0.7 Peak E' Lat Oscar:11.6 cm/s Peak E' Med Oscar:6.85 cm/s E/E' Lat Ratio:5.9 E/E' Med Ratio:9.9 LVOT Peak Oscar:.75 m/sec Mean Oscar:.55 m/sec Peak Grad:2.00 mmHg Mean Grad:1.00 mmHg Aortic Valve Peak Oscar:2.15 m/sec Mean Oscar:1.38 m/sec Peak Grad:18.00 mmHg Mean Grad:8.80 mmHg Valve Area:1.31 cm2 Tricuspid Valve TV Regurg Peak Grad: 6.00mmHg TV Regurg Peak Oscar: 1.25m/sec Updated by Angélica Fabian on 07/03/2016 10:50:10 AM electronically signed on 07/03/2016 10:59:01 AM with status of Final Wall Motion Pedroza: 1=Normal, 2=Hypokinesis, 3=Akinesis, 4=Dyskinesis, 5=Aneurysmal, 6=Hyperkinetic, X=Not Visualized (Blank)=Missing
[2016-07-03] MEDS: Budesonide/Formoterol 160/4.5 MDI IH SCH ×2 (11:07→23:19)
--- NOTE | 2016-07-03 13:05 | Neurology - Consult Note ---
Date of Encounter: 07/03/16 Time of Encounter: 12:56 Assessment and Plan (1) Vertigo Current Visit: Yes Status: Acute Patient has history of recurrent episodic vertigo usually provoked by position changes lasting few minutes in duration, usually with full resolution. Neurological examination shows horizontal nystagmus when gazing to the right side. Symptoms described are mostly consistent with unilateral vestibular dysfunction to the right side likely benign positional paroxysmal vertigo. Patient has not been responding to meclizine. SO far, the spells occur once every few months. No evidence of acute infarct on MRI of brain. No evidence suggesting VBI on MRA of brain. Recommend would be that the patient to be evaluated by ENT and get out-patient vestibular rehabilitation. History of Present Illness Chief complaint: diziness HPI: Mr. Singh is a 60 year old male with past medical history significant for hypertension, CAD, COPD, morbid obesity, history of a recurrent dizziness/ vertigo, history of obstructive sleep apnea noncompliant with CPAP therapy who developed another episode of vertical with the balance difficulty. Apparently, the patient has had similar symptoms in the past and as a matter of fact 3 months ago the patient was admitted to [facility] for exactly dissent symptom. He was admitted to the hospital for 2 days and has had multiple testing. Patient has been experiencing recurrent vertigo-like sensation since the last few years. he would develop one episode every few months. Yesterday he was trying to get up from a horizontal position in the morning and suddenly developed room spinning position associated with balance difficulty. Patient states that the spells usually occur after head movements. The spells usually last less than 5 minutes in duration. The patient would keep still and to the dizziness disappear. Spells are not associated with significant autonomic symptoms patient denies any hearing loss or tinnitus. The patient was given meclizine to use as needed however, this usually does not prevent him from having another episode. Patient is currently feels much better but could just do develop some dizziness and balance difficulty. Patient denies any significant speech difficulty, no diplopia and no difficulty swallowing no focal limb weakness. At the time of this interview, the patient completed MRI of the brain which showed no acute intracranial abnormality. MRA of the brain to make showed no significant pathology. Past Med Surg Social Fam HX - Past Medical History Medical history: arthritis, CHF (2015 echocardiogram demonstrated LVEF 60%. Normal left and right ventricular size and function. Mild diastolic dysfunction of left ventricle. Left and right atrial size. No significant valvular dysfunction.), COPD (July 2015 A function testing demonstrated moderate obstructive ventilatory impairment with significant bronchodilator response. FEV1 1.81. 55% predicted. Lung volumes demonstrate increased residual volume suggesting air trapping. Volume loop was consistent with obstructive pattern. Diffusion capacity demonstrated moderate gas exchange abnormality. MICH s/p UVP.), coronary artery disease (Severe three-vessel coronary artery disease. Two thirds bypass grafts patent and left heart catheterization July 2013.), CVA, hyperlipidemia, hypertension, myocardial infarction (May 2015 EKG demonstrated sinus rhythm at 81 bpm. Q waves demonstrated that leads 3 and aVF. Inferior wall myocardial infarction of indeterminate age. Posterior extension suggested by prominent R waves in V1 and V2. Nonspecific ST-T wave changes. Possible biatrial abnormality.), osteoporosis, renal disease (Chronic kidney disease stage III.), TIA, other ( Obesity. Obstructive sleep apnea.) Psychiatric history: no psych history, other - Past Surgical History Surgical History: angioplasty/stent, coronary bypass (CABG), sinus surgery ( Tonsillectomy adenoidectomy.), vasectomy, other - Social History Smoking Status: Former smoker Smokeless Tobacco Status: No Alcohol use: occasionally Drug use: none - Family History Mother Living Status: Cause of : car accident Hx Family Cardiac Disorders: Yes (aneursym, HTN) Hx Family Genitourinary Disorders: Yes (Cancer) Father Living Status: Hx Family Respiratory Disorders: Yes (COPD) Medications and Allergies Albuterol Sulfate [Proair Hfa] 2 puff IH Q4H PRN 07/02/16 [History] Aspirin 81 mg PO DAILY 07/02/16 [History] Atorvastatin [Lipitor] 40 mg PO HS 07/02/16 [History] Budesonide/Formoterol 160/4.5 [Symbicort 160/4.5] 2 puff IH BIDR 07/02/16 [ History] Carvedilol [Coreg] 25 mg PO BID 07/02/16 [History] Clopidogrel [Plavix] 75 mg PO DAILY 07/02/16 [History] Furosemide [Lasix] 20 mg PO DAILY 07/02/16 [History] Losartan [Cozaar] 25 mg PO DAILY 07/02/16 [History] Allergies cephalexin [From Keflex] Allergy (Verified 06/26/15 04:35) Swelling of Lip/Tongue/Throat Penicillins Allergy (Verified 06/26/15 04:35) Hives lisinopril Adverse Reaction (Verified 07/02/16 16:05) Cough All Systems: A 10-system review of systems was performed and is negative for pertinent findings except as documented above in the HPI. 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, hip flexors, tibialis Anterior, quadriceps, toe extension (EHL), plantarflexion Motor examination - left side: 5/5: deltoids, biceps, triceps, wrist flexion, wrist extension, hip flexors, 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, quadriceps, tibialis Anterior, toe extension (EHL), plantarflexion Detailed sensory examination: intact Mental Status Examination: awake, alert, oriented to person, oriented to place, oriented to time, follows commands appropriately, answers questions appropriately, no agnosia, no aphasia, no aproxia Cranial nerve examination: PERRL, EOMI (Horizontal nystagmus noted when gazing to the right side only), visual [place] intact, corneal reflexes brisk symmetrically, sensory to face intact, mastication intact, no facial asymmetry is present, no dysarthria, hearing is intact symmetrically, soft palate elevates bilaterally upon phonation, gag reflex intact, flexes SCM and trapezius muscles symmetrically with full power, tongue protrudes midline, no atrophy or facial fasiculations present Results - Laboratory Findings CBC and BMP: 07/02/16 13:44 07/03/16 00:39 Abnormal lab findings: Abnormal lab results ESR 25 mm/hr (0-10) H 07/02/16 13:44 VBG pO2 60 mmHg (25-40) H 07/03/16 00:39 Creatinine 1.55 mg/dL (0.72-1.25) H 07/03/16 00:39 Est GFR ( Amer) 56 (> 60) L 07/03/16 00:39 Est GFR (Non-Af Amer) 46 (> 60) L 07/03/16 00:39 Glucose 167 mg/dL (70-99) H 07/03/16 00:39 Hemoglobin A1c 7.9 % (-5.6) H 07/03/16 00:39 C-Reactive Protein 9 mg/L (Less than 5) H 07/02/16 20:23 Albumin 3.3 g/dL (3.5-5.0) L 07/03/16 00:39 Albumin/Globulin Ratio 1.0 (1.1-2.2) L 07/03/16 00:39 HDL Cholesterol 27 mg/dL (40-59) L 07/03/16 00:39 Cholesterol/HDL Ratio 5.0 (0-4.9) H 07/03/16 00:39 Urine Glucose (UA) 250 mg/dL (Normal) H 07/03/16 06:00 Consult Discharge Plan - Plan Referrals: Pattie Bloom, [employer] [Primary Care Provider] -
--- NOTE | 2016-07-03 14:42 | Internal Med Progress Note ---
Date of Encounter: 07/03/16 Time of Encounter: 11:15 - Assessment and plan (1) Benign paroxysmal positional vertigo Current Visit: Yes Status: Acute Assessment and plan: Follow ENT Head/Neck MRA no acute ischemia, evidence of chronic ischemic infarcts, CXR unremarkable Howeve,r orthostatis vital signs positive Other work up unremarkable Encourage liberal fluid intake meanwhile Continue to hold diuretics Qualifiers: Laterality: unspecified laterality Qualified Code(s): H81.10 - Benign paroxysmal vertigo, unspecified ear (2) CKD (chronic kidney disease) stage 3, GFR 30-59 ml/min Current Visit: Yes Status: Chronic Assessment and plan: Chronic, stable, avoid nephrotoxins (3) CAD (coronary artery disease), [place] coronary artery Current Visit: Yes Status: Chronic Assessment and plan: Chronic, stable, no chest pain, continue home meds Qualifiers: [place] vs. transplanted heart: [place] heart Associated angina: angina presence unspecified Qualified Code(s): I25.10 - Atherosclerotic heart disease of [place] coronary artery without angina pectoris (4) COPD (chronic obstructive pulmonary disease) Current Visit: Yes Status: Chronic Assessment and plan: No evidence of exacerbation PFT: July 2015 A function testing demonstrated moderate obstructive ventilatory impairment with significant bronchodilator response. FEV1 1.81. 55 % predicted. Lung volumes demonstrate increased residual volume suggesting air trapping. Volume loop was consistent with obstructive pattern. Diffusion capacity demonstrated moderate gas exchange abnormality Nebs prn MICH s/p surgery Qualifiers: COPD type: unspecified COPD Qualified Code(s): J44.9 - Chronic obstructive pulmonary disease, unspecified (5) Diastolic CHF Current Visit: Yes Status: Chronic Assessment and plan: Not in exacerbation Hold lasix for now due to orthostasis, resume other home meds Qualifiers: Congestive heart failure chronicity: unspecified congestive heart failure chronicity Qualified Code(s): I50.30 - Unspecified diastolic (congestive) heart failure (6) MICH (obstructive sleep apnea) Current Visit: Yes Status: Chronic (7) Obesity (BMI 30-39.9) Current Visit: Yes Status: Chronic (8) Old cerebrovascular accident (CVA) without late effect Current Visit: Yes Status: Chronic - Subjective Interval history: 60 year old male with past medical history significant for hypertension, CAD, CKD III, COPD, morbid obesity, history of a recurrent dizziness/vertigo, history of obstructive sleep apnea noncompliant with CPAP therapy Patient is being managed for BPPV He is seen at bedside, no new complains Awaiting ECHO reports and Neuro/ENT eval He denies recent Ear infection, he has a chronic history of left otitis media since childhood, but no recent ear discharge He denies tinnitus/hearing loss, 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 Absent: lymphadenopathy - Respiratory Respiratory exam: Present: CTAB. Absent: accessory muscle use, rales, rhonchi, wheezes - Cardiovascular Cardiovascular exam: Present: RRR, +S1, +S2. Absent: diastolic murmur, gallop, rubs, systolic murmur - GI/Abdominal GI/Abdominal exam: Present: normal bowel sounds, soft, no peritoneal signs. Absent: distended, tenderness - Extremities Exam Extremities exam: Present: warm, radial pulses palpable and symetrical. Absent : calf tenderness, cyanotic, pedal edema - Neurological Exam Neurological exam: Present: CN II-XII intact, oriented X3, no focal deficits. Absent: pronater drift, facial droop, speech deficit - Skin Skin exam: Present: dry Internal Medicine: Result - Labs CBC & Chem 7: 07/02/16 13:44 07/03/16 00:39 Labs: BMP 07/03/16 00:39 Sodium 138 Potassium 4.1 Chloride 106 Carbon Dioxide 23 BUN 20 Creatinine 1.55 H Glucose 167 H Calcium 8.9 Cardiac Enzymes 07/02/16 07/03/16 Range/Units 20:23 00:39 Troponin I 0.01 0.01 (0-0.03) ng/mL Liver Function 07/03/16 Range/Units 00:39 Total Bilirubin 1.0 (0.2-1.2) mg/dL AST 22 (5-34) Units/L ALT 45 (0-55) Units/L Alkaline Phosphatase 99 (38-126) Units/L Albumin 3.3 L (3.5-5.0) g/dL Urine 07/03/16 Range/Units 06:00 Urine Color Yellow (Yellow) Urine Clarity Clear (Clear) Urine pH 6.0 (5.0-8.0) pH Units Ur Specific [place] 1.022 (1.010-1.025) Urine Protein Negative (Neg-Trace) mg/dL Urine Glucose (UA) 250 H (Normal) mg/dL - ABG Interpretation ABG results: PT/INR, D-dimer PT 11.3 Seconds (9.4-12.1) 07/02/16 13:44 Consult Discharge Plan - Plan Referrals: Pattie Bloom, CARY [Primary Care Provider] -
--- NOTE | 2016-07-03 16:05 | ENT - Consult Note ---
Date of Encounter: 07/03/16 Time of Encounter: 16:03 Assessment and Plan (1) Benign paroxysmal positional vertigo Current Visit: Yes Status: Acute Patient with positive Rutherford-Hallpike to the right at bedside. Patient history also consistent with BPPV. Patient with vertigo episodes lasting seconds to minutes after head turning movements. Patient has had episodes for years that are usually months apart. BPPV has been self resolving in the past. Patient has never underwent physical therapy for this problem. Patient's diagnosis was clouded by his previous health history as well as stroke history. I would recommend sending patient for vestibular therapy for further treatment of his BPPV. I did perform Katharina 2 to help treat his current spinning episodes. Patient to follow up with ENT as outpatient and recommend vestibular therapy to treat his BPPV. Also recommend sending patient home on Valium 2 mg tabs 1 tab by mouth every 8 hours when necessary spinning vertigo. Discussed with patient he should only take this medicine when he is having acute episodes of vertigo. Qualifiers: Laterality: right Qualified Code(s): H81.11 - Benign paroxysmal vertigo, right ear History of Present Illness Reason for ENT Consult: vertigo History of present illness: Patient is a 60-year-old gentleman who presented to the hospital secondary to 1 day of the Q spinning episodes or vertigo. Upon further questioning patient with spinning that occurred with head movement that lasts up to a couple of minutes. These resolved on their own with time and with laying still. Patient does have these episodes when rolling over in bed. Patient unsure of which side causes serious episodes more often. Patient with these episodes in the past up in months apart. Patient has had these episodes from many years. Patient has never been worked up by an ENT for these episodes due to noise been hospitalized. Patient with past medical history significant for multiple strokes and TIAs as well as heart disease with previous open heart surgery. Patient denies any recent head trauma, whiplash injury, tinnitus or hearing changes, recent upper respiratory infections. Past Med Surg Social Fam HX - Past Medical History Medical history: arthritis, CHF (2015 echocardiogram demonstrated LVEF 60%. Normal left and right ventricular size and function. Mild diastolic dysfunction of left ventricle. Left and right atrial size. No significant valvular dysfunction.), COPD (July 2015 A function testing demonstrated moderate obstructive ventilatory impairment with significant bronchodilator response. FEV1 1.81. 55% predicted. Lung volumes demonstrate increased residual volume suggesting air trapping. Volume loop was consistent with obstructive pattern. Diffusion capacity demonstrated moderate gas exchange abnormality. MICH s/p UVP.), coronary artery disease (Severe three-vessel coronary artery disease. Two thirds bypass grafts patent and left heart catheterization July 2013.), CVA, hyperlipidemia, hypertension, myocardial infarction (May 2015 EKG demonstrated sinus rhythm at 81 bpm. Q waves demonstrated that leads 3 and aVF. Inferior wall myocardial infarction of indeterminate age. Posterior extension suggested by prominent R waves in V1 and V2. Nonspecific ST-T wave changes. Possible biatrial abnormality.), osteoporosis, renal disease (Chronic kidney disease stage III.), TIA, other ( Obesity. Obstructive sleep apnea.) Psychiatric history: no psych history, other - Past Surgical History Surgical History: angioplasty/stent, coronary bypass (CABG), sinus surgery ( Tonsillectomy adenoidectomy.), vasectomy, other - Social History Smoking Status: Former smoker Smokeless Tobacco Status: No Alcohol use: occasionally Drug use: none - Family History Mother Living Status: Cause of : car accident Hx Family Cardiac Disorders: Yes (aneursym, HTN) Hx Family Genitourinary Disorders: Yes (Cancer) Father Living Status: Hx Family Respiratory Disorders: Yes (COPD) Medications and Allergies Albuterol Sulfate [Proair Hfa] 2 puff IH Q4H PRN 07/02/16 [History] Aspirin 81 mg PO DAILY 07/02/16 [History] Atorvastatin [Lipitor] 40 mg PO HS 07/02/16 [History] Budesonide/Formoterol 160/4.5 [Symbicort 160/4.5] 2 puff IH BIDR 07/02/16 [ History] Carvedilol [Coreg] 25 mg PO BID 07/02/16 [History] Clopidogrel [Plavix] 75 mg PO DAILY 07/02/16 [History] Furosemide [Lasix] 20 mg PO DAILY 07/02/16 [History] Losartan [Cozaar] 25 mg PO DAILY 07/02/16 [History] Allergies cephalexin [From Keflex] Allergy (Verified 06/26/15 04:35) Swelling of Lip/Tongue/Throat Penicillins Allergy (Verified 06/26/15 04:35) Hives lisinopril Adverse Reaction (Verified 07/02/16 16:05) Cough ENT - ROS - Constitutional Constitutional ROS: as per HPI - EENT Nose, mouth and throat: vertigo ENT Exam Initial Vital Signs Temp Pulse Resp BP Pulse Ox 97.2 F L 63 16 124/75 93 L 07/02/16 12:41 07/02/16 12:41 07/02/16 12:41 07/02/16 12:41 07/02/16 12:41 - General physical appearance well developed, well nourished, obese - Eyes PERRL, normal ocular movement - ENT normal pinna, normal nares, Other (Mouth: Uvula surgically absent, tonsil surgically absent bilaterally, ears no otorrhea, nares are patent) - Neck no masses, no bruits, trachea midline, other (Thick neck, no thyromegaly) - Respiratory normal expansion, normal respiratory effort - Neurologic other (Rutherford-Hallpike positive to the right with rotary nystagmus) Exam Initial Vital Signs Temp Pulse Resp BP Pulse Ox 97.2 F L 63 16 124/75 93 L 07/02/16 12:41 07/02/16 12:41 07/02/16 12:41 07/02/16 12:41 07/02/16 12:41 Results - Labs 07/02/16 13:44 07/03/16 00:39 Abnormal lab results ESR 25 mm/hr (0-10) H 07/02/16 13:44 VBG pO2 60 mmHg (25-40) H 07/03/16 00:39 Creatinine 1.55 mg/dL (0.72-1.25) H 07/03/16 00:39 Est GFR ( Amer) 56 (> 60) L 07/03/16 00:39 Est GFR (Non-Af Amer) 46 (> 60) L 07/03/16 00:39 Glucose 167 mg/dL (70-99) H 07/03/16 00:39 Hemoglobin A1c 7.9 % (-5.6) H 07/03/16 00:39 C-Reactive Protein 9 mg/L (Less than 5) H 07/02/16 20:23 Albumin 3.3 g/dL (3.5-5.0) L 07/03/16 00:39 Albumin/Globulin Ratio 1.0 (1.1-2.2) L 07/03/16 00:39 HDL Cholesterol 27 mg/dL (40-59) L 07/03/16 00:39 Cholesterol/HDL Ratio 5.0 (0-4.9) H 07/03/16 00:39 Urine Glucose (UA) 250 mg/dL (Normal) H 07/03/16 06:00 Diabetes panel 07/03/16 07/03/16 Range/Units 00:39 00:39 Sodium 138 (136-145) mEq/L Potassium 4.1 (3.5-4.5) mEq/L Chloride 106 (98-109) mEq/L Carbon Dioxide 23 (19-29) mEq/L BUN 20 (8-26) mg/dL Creatinine 1.55 H (0.72-1.25) mg/dL Glucose 167 H (70-99) mg/dL Hemoglobin A1c 7.9 H ( - 5.6) % Calcium 8.9 (8.6-10.8) mg/dL AST 22 (5-34) Units/L ALT 45 (0-55) Units/L Alkaline Phosphatase 99 (38-126) Units/L Albumin 3.3 L (3.5-5.0) g/dL Triglycerides 148 (< 150) mg/dL HDL Cholesterol 27 L (40-59) mg/dL Thyroid panel 07/02/16 Range/Units 20:23 TSH 1.949 (0.350-4.840) mcIU/mL Calcium panel 07/02/16 07/03/16 Range/Units 20:23 00:39 Calcium 8.9 (8.6-10.8) mg/dL Phosphorus 3.0 (2.3-4.7) mg/dL Albumin 3.3 L (3.5-5.0) g/dL Pituitary panel 07/02/16 07/03/16 Range/Units 20:23 00:39 Sodium 138 (136-145) mEq/L Potassium 4.1 (3.5-4.5) mEq/L Chloride 106 (98-109) mEq/L Carbon Dioxide 23 (19-29) mEq/L BUN 20 (8-26) mg/dL Creatinine 1.55 H (0.72-1.25) mg/dL Glucose 167 H (70-99) mg/dL Calcium 8.9 (8.6-10.8) mg/dL TSH 1.949 (0.350-4.840) mcIU/mL Prolactin 4.68 (3.46-19.40) ng/mL Adrenal panel 07/03/16 Range/Units 00:39 Sodium 138 (136-145) mEq/L Potassium 4.1 (3.5-4.5) mEq/L Chloride 106 (98-109) mEq/L Carbon Dioxide 23 (19-29) mEq/L BUN 20 (8-26) mg/dL Creatinine 1.55 H (0.72-1.25) mg/dL Glucose 167 H (70-99) mg/dL Calcium 8.9 (8.6-10.8) mg/dL Total Bilirubin 1.0 (0.2-1.2) mg/dL AST 22 (5-34) Units/L ALT 45 (0-55) Units/L Alkaline Phosphatase 99 (38-126) Units/L Albumin 3.3 L (3.5-5.0) g/dL All other labs normal. Consult Discharge Plan - Plan Referrals: Pattie Bloom, C[facility] [Primary Care Provider] -
[2016-07-03] MEDS ORDERED: diazePAM 2 MG TABLET PO PRN (16:08)
[2016-07-03] MEDS: 0.9 % Sodium Chloride 1,000 ML IVC SCH (17:20)
[2016-07-04] MEDS: Ipratropium/Albuterol Neb 3 ML IH SCH (04:42)
[2016-07-04] MEDS: *HR* Heparin 5,000 UNIT/ML VIAL SQ SCH (06:29)
[2016-07-04] MEDS: Aspirin 81 MG TAB.CHEW PO SCH (08:17)
[2016-07-04] MEDS: Fluticasone Propionate Nasal 50 MCG/SPRAY BOTTLE NS SCH (08:18)
[2016-07-04] MEDS ORDERED: Furosemide 40 MG TABLET PO ONE (08:39)
[2016-07-04] MEDS: Budesonide/Formoterol 160/4.5 MDI IH SCH (10:59)
[2016-07-04 11:29] VITALS: BP 133/94
--- NOTE | 2016-07-04 13:27 | Discharge Summary ---
Date of Encounter: 07/04/16 Time of Encounter: 11:10 - Discharge Diagnosis (1) Benign paroxysmal positional vertigo Priority: Primary Status: Acute Comments: Review by ENT noted Head/Neck MRA no acute ischemia, evidence of chronic ischemic infarcts, CXR unremarkable ECHO showed LVEF 60% Mild LVDD, Mild to moderate , no Pulm HTN s/p Katharina manoeuvre by ENT D/C home on Meclizine, Valium prn Follow up with ENT as out-patient for vestibular therapy/rehabilitation Qualifiers: Laterality: right Qualified Code(s): H81.11 - Benign paroxysmal vertigo, right ear (2) CKD (chronic kidney disease) stage 3, GFR 30-59 ml/min Priority: Secondary Status: Chronic Comments: Chronic, stable, avoid nephrotoxins, follow up with PCP (3) CAD (coronary artery disease), [place] coronary artery Priority: Secondary Status: Chronic Comments: Chronic, stable, no chest pain, continue home meds Qualifiers: [place] vs. transplanted heart: [place] heart Associated angina: angina presence unspecified Qualified Code(s): I25.10 - Atherosclerotic heart disease of [place] coronary artery without angina pectoris (4) COPD (chronic obstructive pulmonary disease) Priority: Secondary Status: Chronic Comments: No evidence of exacerbation PFT: July 2015 A function testing demonstrated moderate obstructive ventilatory impairment with significant bronchodilator response. FEV1 1.81. 55 % predicted. Lung volumes demonstrate increased residual volume suggesting air trapping. Volume loop was consistent with obstructive pattern. Diffusion capacity demonstrated moderate gas exchange abnormality Nebs prn, continue home meds MICH s/p surgery Qualifiers: COPD type: unspecified COPD Qualified Code(s): J44.9 - Chronic obstructive pulmonary disease, unspecified (5) Diastolic CHF Priority: Secondary Status: Chronic Qualifiers: Congestive heart failure chronicity: unspecified congestive heart failure chronicity Qualified Code(s): I50.30 - Unspecified diastolic (congestive) heart failure (6) MICH (obstructive sleep apnea) Priority: Secondary Status: Chronic (7) Obesity (BMI 30-39.9) Priority: Secondary Status: Chronic (8) Old cerebrovascular accident (CVA) without late effect Priority: Secondary Status: Chronic - Discharge Medications Prescriptions: Benzonatate [Tessalon] 200 mg PO TID PRN #15 capsule PRN Reason: Cough Diazepam [Valium] 2 mg PO TID PRN #30 tablet PRN Reason: Vertigo Docusate [Colace] 100 mg PO BID #20 capsule Fluticasone Propionate Nasal [Flonase] 50 mcg NS BID #1 bottle Meclizine [Antivert] 25 mg PO TID PRN #15 tablet PRN Reason: Dizziness Home Medications: Albuterol Sulfate [Proair Hfa] 2 puff IH Q4H PRN 07/02/16 [History] Aspirin 81 mg PO DAILY 07/02/16 [History] Atorvastatin [Lipitor] 40 mg PO HS 07/02/16 [History] Budesonide/Formoterol 160/4.5 [Symbicort 160/4.5] 2 puff IH BIDR 07/02/16 [ History] Carvedilol [Coreg] 25 mg PO BID 07/02/16 [History] Clopidogrel [Plavix] 75 mg PO DAILY 07/02/16 [History] Furosemide [Lasix] 20 mg PO DAILY 07/02/16 [History] Losartan [Cozaar] 25 mg PO DAILY 07/02/16 [History] Benzonatate [Tessalon] 200 mg PO TID PRN #15 capsule 07/04/16 [Rx] Diazepam [Valium] 2 mg PO TID PRN #30 tablet 07/04/16 [Rx] Docusate [Colace] 100 mg PO BID #20 capsule 07/04/16 [Rx] Fluticasone Propionate Nasal [Flonase] 50 mcg NS BID #1 bottle 07/04/16 [Rx] Meclizine [Antivert] 25 mg PO TID PRN #15 tablet 07/04/16 [Rx] Allergies/Adverse Reactions: Allergies cephalexin [From Keflex] Allergy (Verified 06/26/15 04:35) Swelling of Lip/Tongue/Throat Penicillins Allergy (Verified 06/26/15 04:35) Hives lisinopril Adverse Reaction (Verified 07/02/16 16:05) Cough Procedures/tests Complete & Pending: Procedures Performed prior 72 hours Category Date Time Status ECG 12 lead ECG [ECG] AM 0600 Y 07/03/16 06:00 Ordered EV echocardiogram Routine Y 07/03/16 20:22 Completed Date of admission: 07/02/16 19:16 Primary care physician: Pattie Bloom CNP Consults: 07/02/16 19:42 Consult to Occupational Therapy [CONS] Routine Comment: Evaluate, develop and implement POC Consult to Physical Therapy [CONS] Routine Comment: Evaluate, develop and implement POC 07/02/16 19:44 Consult to Nurse Navigator [CONS] Routine Comment: 07/03/16 08:00 Consult to ENT [CONS] Routine Consulting Provider: TORI Lincoln Reason for Consult: History of inner ear pathology in [facility] with problematic, positional vertigo. Please evaluate and advise. Time Notified: 22:10 Call Completed: No Consult to Neurology [CONS] Routine Consulting Provider: [facility] Reason for Consult: History of old CVAs and TIAs presents now with positional vertigo with presyncope, associated gait disturbance and increased fall risk. These evaluate and advise. Time Notified: 22:11 Call Completed: No Discharging clinician: Delmer Bell Anticipated date of discharge: 07/04/16 - Patient Status Disposition: Home, Self-Care Condition: Good Functional capacity at discharge: independent ambulation Overall status at discharge: patient is progressing back to baseline - Discharge Instructions Follow Up With: Pattie Bloom, C[facility] [Primary Care Provider] - - Diet and Activity Activity: resume usual activities as tolerated Diet: advance to your usual diet Interval History: See below Hospital course: 60 year old male with past medical history significant for hypertension, CAD, CKD III, COPD, morbid obesity, history of a recurrent dizziness/vertigo, history of obstructive sleep apnea noncompliant with CPAP therapy He was hospitalized for management of vertigo, r/o cerebellar CVA Work up revealed no CVA, no new cardiac diagnoses Patient reviewed by ENT for BPPV He is seen at bedside this morning in no apparent distress He is stable for d/c home His immunization is up to date Rest of details as in individual diagnoses Plan of care discussed, verbalizes understanding - Time Spent with Patient Total time spent providing and/or coordinating discharge services: Less than 30 minutes - Constitutional Vitals: Temp Pulse Resp BP Pulse Ox 97.4 F L 67 16 133/94 93 L 07/04/16 11:28 07/04/16 11:28 07/04/16 11:28 07/04/16 11:28 07/04/16 11:28 General appearance: Present: cooperative, A&O X 3, morbidly obese, pleasant, no acute distress, answers questions appropriately - Head Head exam: Present: atraumatic, normocephalic - Eye Eye exam: Present: PERRL, conjuntiva pink, sclera anicteric Pupils: Present: PERRL - Neck Neck exam general surgery: Present: supple, trachea midline. Absent: lymphadenopathy - Respiratory Respiratory exam: Present: CTAB. Absent: accessory muscle use, rales, rhonchi, wheezes - Cardiovascular Cardiovascular exam: Present: RRR, +S1, +S2. Absent: diastolic murmur, gallop, rubs, systolic murmur - GI/Abdominal GI/Abdominal exam: Present: normal bowel sounds, soft, no peritoneal signs. Absent: distended, tenderness - Extremities Exam Extremities exam: Present: warm, radial pulses palpable and symetrical. Absent : calf tenderness, cyanotic, pedal edema - Neurological Exam Neurological exam: Present: CN II-XII intact, oriented X3, no focal deficits. Absent: pronater drift, facial droop, speech deficit - Skin Skin exam: Present: dry, intact
== END 2016-07-04 14:47 | disposition home or self-care (01) ==
LOC: EMEROO 12:39 → 3BNU 12:39 → SUATTDRO 19:16 → 3BNU 19:48
PROVIDERS: ADMIT Internal Medicine; ATTEND Internal Medicine

== ENCOUNTER 2016-08-09 18:40 | Inpatient (IN) ==
[2016-08-09] MEDS ORDERED: *HR* Heparin 5,000 UNIT/ML VIAL IVP ONE (21:45)
[2016-08-09] MEDS ORDERED: Heparin 25,000 UNIT/500 ML D5W 25,000 UNIT/500 ML MLS IVC SCH (21:45)
[2016-08-09] MEDS ORDERED: *HR* Morphine 2 MG/ML SYRINGE IVP PRN (21:45)
[2016-08-09] MEDS ORDERED: Ondansetron 4 MG/2 ML VIAL IVP PRN (21:45)
[2016-08-09] MEDS ORDERED: *HR* Heparin 5,000 UNIT/ML VIAL IVP PRN ×2 (21:45)
[2016-08-09] MEDS ORDERED: Naloxone 0.4 MG/ML INJ IVP PRN (21:45)
[2016-08-09] MEDS ORDERED: Acetaminophen 325 MG TABLET PO PRN (21:45)
[2016-08-09] MEDS ORDERED: 0.9 % Sodium Chloride 1,000 ML ONE (22:04)
[2016-08-09 22:07] LABS: Hematocrit 38.4 % (37.5-50.1); Hemoglobin 12.5 g/dL (12.9-16.9); Mean Corpuscular HGB Conc 32.6 g/dL (31.6-35.5); Mean Corpuscular Hemoglobin 29.1 pg (28.0-33.3); Mean Corpuscular Volume 89.5 fL (83.0-100.0); Mean Platelet Volume 10.7 fL (9.4-12.4); Platelet Count 135 K/mcL (140-400); Red Blood Count 4.29 M/mcL (4.19-5.50); Red Cell Distribution Width 15.2 % (11.5-14.5)
[2016-08-09 22:22] LABS: Albumin 2.9 g/dL (3.5-5.0); Bilirubin,Total 0.8 mg/dL (0.2-1.2); Calcium 8.4 mg/dL (8.6-10.8); Potassium 4.2 mEq/L (3.5-4.5); Total Protein 5.9 g/dL (6.0-8.3)
--- NOTE | 2016-08-09 22:27 | Internal Med History&Physical ---
Date of Encounter: 08/09/16 Time of Encounter: 21:10 Assessment and Plan (1) ST elevation myocardial infarction (STEMI) of inferior wall Current visit: Yes Status: Acute 1. Will resume heparin gtt per protocol. 2. IV morphine as needed for CP. 3. Continue home meds as appropriate. 4. Hold BB due to bradycardia. 5. Called and discussed with Dr. Ball -- no intervention at this time. 6. Consult cardiology to assist with care and management. 7. Cycle troponins, EKG's, and order ECHO. 8. Will stop Plavix and continue Brilinta as initiated by cardiology at [facility]. (2) Hypertension Current visit: Yes Status: Chronic 1. Continue home meds as appropriate. 2. Monitor and adjust as necessary. Qualifiers: Hypertension type: essential hypertension Qualified Code(s): I10 - Essential (primary) hypertension (3) Bradycardia Current visit: Yes Status: Acute 1. Likely due to RV infarct/Inferior wall PA. 2. Temporary pacemaker was removed today. For the most part, bradycardia has resolved. However, he still has some periodic bradycardic spells. 3. Monitor; hold BB; consider temporary venous pacemaker if unstable. (4) DVT prophylaxis Current visit: Yes Status: Acute 1. On heparin gtt. Internal Medicine - H&P: HPI Chief complaint: chest pain; transfer [facility] Admitted From: Hospital to Hospital Transfer Plans for Post Hospital Care: Home History of present illness: Mr. Singh is a 60 year old male who presents in transfer from [facility] for an inferior wall STEMI. He initially presented there yesterday and underwent emergency left heart catheterization with unsuccessful PCI/stent. He had some transient bradycardia requiring temporary venous pacemaker after his procedure. The pacemaker was removed today. He has no further chest pain but has some mild residual shortness of breath and generalized weakness. He requested transfer here to [place] for ongoing care and possible further coronary intervention if necessary. Patient arrived to the ICU and I saw him shortly after his arrival. Patient appears well perfused and in no distress other than some mild shortness of breath and fatigue. He has no chest pain or pressure. He does have some periodic bradycardic spells with heart rate in the 50s and 60s. He has some nausea as well. He denies any diaphoresis, neck, jaw, or arm pain. He had severe chest pain and pressure yesterday prompting him to call 911. He was taken emergently to [facility] by EMS where he underwent emergency left heart catheterization as detailed above. Of note, patient had his anti-coagulation stopped earlier today and the pacemaker removed as noted above. Upon arrival, I requested a STAT EKG, reviewed it, and I contacted Dr. Ball ( interventional cardiology weight control engineer). I asked him to review the EKGs, both from [facility] and from here. Based upon my review of the EKG here, he does have evidence of inferior ST elevation as well as lateral wall ST depression suggesting inferolateral PA. However, when compared to his previous EKGs, there is improvement in his ST elevation. Dr. Ball agrees. He does not feel patient needs urgent intervention at this time. He agrees with me in that I was planning on restarting heparin drip. I will formally consult cardiology to see patient in the morning and plan for echocardiogram as well as serial EKGs and troponins. Any further cardiac intervention will be determined by General and interventional cardiology. Of note, Dr. Boyd was initially contacted by [facility] and accepted the patient in transfer. He requested hospitalists admit with consult to cardiology. I discussed the plan with patient and family. They are in agreement with the plan. Past Med Surg Social Fam HX - Past Medical History Attestation: Yes The following information was validated with the patient. Source: patient, old records reviewed Medical history: arthritis, CHF, COPD, coronary artery disease, CVA, hyperlipidemia, hypertension, myocardial infarction, osteoporosis, renal disease , TIA, other Psychiatric history: no psych history, other - Past Surgical History Surgical History: angioplasty/stent, coronary bypass (CABG), sinus surgery, vasectomy - Social History Smoking Status: Former smoker Smokeless Tobacco Status: No Alcohol use: occasionally Drug use: none Current living situation: Home - Independent Activity Level: Independent ambulation Recent Out of Country Travel Within the Last 8 Weeks: No - Family History Mother Living Status: Hx Family Cardiac Disorders: Yes (aneursym, HTN) Father Living Status: Hx Family Respiratory Disorders: Yes (COPD) Internal Medicine - H&P: Meds Albuterol Sulfate [Proair Hfa] 2 puff IH Q4H PRN 07/02/16 [History] Aspirin 81 mg PO DAILY 07/02/16 [History] Atorvastatin [Lipitor] 40 mg PO HS 07/02/16 [History] Budesonide/Formoterol 160/4.5 [Symbicort 160/4.5] 2 puff IH BIDR 07/02/16 [ History] Carvedilol [Coreg] 25 mg PO BID 07/02/16 [History] Clopidogrel [Plavix] 75 mg PO DAILY 07/02/16 [History] Furosemide [Lasix] 20 mg PO DAILY 07/02/16 [History] Losartan [Cozaar] 25 mg PO DAILY 07/02/16 [History] Benzonatate [Tessalon] 200 mg PO TID PRN #15 capsule 07/04/16 [Rx] Diazepam [Valium] 2 mg PO TID PRN #30 tablet 07/04/16 [Rx] Docusate [Colace] 100 mg PO BID #20 capsule 07/04/16 [Rx] Fluticasone Propionate Nasal [Flonase] 50 mcg NS BID #1 bottle 07/04/16 [Rx] Meclizine [Antivert] 25 mg PO TID PRN #15 tablet 07/04/16 [Rx] Allergies cephalexin [From Keflex] Allergy (Verified 06/26/15 04:35) Swelling of Lip/Tongue/Throat Penicillins Allergy (Verified 06/26/15 04:35) Hives lisinopril Adverse Reaction (Verified 07/02/16 16:05) Cough - Constitutional Constitutional: no chills, no fever(s) - EENT Eyes: no blurry vision, no change in vision Ears: no ear pain, no tinnitus Nose, mouth and throat: no nasal congestion, no sinus pressure, no sore throat - Cardiovascular Cardiovascular ROS IM: chest pain, diaphoresis, dyspnea - Respiratory Respiratory: no cough, no hemoptysis, no chest congestion, no excessive phlegm production - Gastrointestinal Gastrointestinal: no abdominal pain, no diarrhea, no hematemesis, no hematochezia, no melena, no nausea, no vomiting - Genitourinary Genitourinary ROS male: no dysuria, no flank pain, no hematuria - Musculoskeletal Musculoskeletal ROS IM: no arthralgias, no back pain - Integumentary Integumentary IM: no rash, no jaundice - Neurological Neurological ROS: weakness, no dizziness, no focal weakness, no frequent falls, no headache(s) - Psychiatric Psychiatric: no anxiety, no depression - Endocrine Endocrine IM: no cold intolerance, no heat intolerance, no polydipsia, no polyuria - Hematologic/Lymphatic Hematologic/Lymphatic: easy bruising, no lymphadenopathy - Allergic/Immunologic Allergic/Immunologic: no wheezing, no GI upset with certain foods - Constitutional Vitals: Temp Pulse Resp BP Pulse Ox 98.1 F 74 18 118/88 95 08/09/16 20:45 08/09/16 21:19 08/09/16 21:00 08/09/16 21:00 08/09/16 21:00 General appearance: Present: cooperative, mild distress, A&O X 3, pleasant, answers questions appropriately - Head Head exam: Present: atraumatic, normal inspection - Expanded Head Exam Head exam expanded: Absent: abrasion, contusion, general tenderness - Eye Eye exam: Present: EOMI, normal appearance, PERRL. Absent: scleral icterus Pupils: Present: normal accommodation - ENT ENT exam: Present: mucous membranes dry, normal exam, normal oropharynx - Neck Neck exam general surgery: Present: full ROM, supple, trachea midline. Absent: tenderness, thyromegaly - Expanded Neck Exam Neck exam: Absent: carotid bruit - Respiratory Respiratory exam: Present: CTAB. Absent: chest wall tenderness, rales, respiratory distress, rhonchi, wheezes - Cardiovascular Cardiovascular exam: Present: bradycardia (periodic), distant heart sounds, RRR , +S1, +S2. Absent: diastolic murmur, JVD, systolic murmur - GI/Abdominal GI/Abdominal exam: Present: normal bowel sounds, soft. Absent: guarding, hepatomegaly, mass, rebound, splenomegaly, tenderness - Extremities Exam Extremities exam: Present: full ROM, warm, radial pulses palpable and symetrical. Absent: calf tenderness, joint swelling, pedal edema - Back Exam Back exam: Present: normal inspection. Absent: CVA tenderness (L), CVA tenderness (R) - Neurological Exam Neurological exam: Present: alert, CN II-XII intact, oriented X3, no focal deficits - Psychiatric Psychiatric exam: Present: normal affect, normal mood - Skin Skin exam: Present: dry, warm. Absent: rash Internal Med - H&P Results - Labs Labs: I reviewed labs from [facility] including EKGs. Pertinent labs reveal normal CBC and abnormal details below. Initial troponin was 0.237 and peaked at 35. Sodium 139 Potassium 4.3 Chloride 101 Carbon dioxide 29 BUN 14 Glucose 154 Creatinine 1.59 - EKG Data -: EKG Interpreted by Myself - EKG Data Prior EKG available for review: yes When compared to previous EKG: there are significant changes Interpretation IM: ischemic changes EKG comments: 08/09/16 22:[address]-T elevation and lateral wall ST-T depression - VTE Reasons for not Prescribing Prophylaxis: Not indicated-Anticoagulated or INR therapeutic
[2016-08-09] MEDS: 0.9 % Sodium Chloride 1,000 ML IVC SCH ×2 (22:28→22:29)
[2016-08-09] MEDS ORDERED: D5% in Water 1,000 ML IV PRN (22:54)
[2016-08-09] MEDS ORDERED: Dextrose Gel 15 GM PO PRN ×2 (22:54)
[2016-08-09] MEDS ORDERED: *HR* Dextrose 50 % in Water (Syg) 50 ML SYRINGE IVP PRN (22:54)
[2016-08-09 23:21] LABS: INR 1.1; Prothrombin Time 12.3 Seconds (9.4-12.1)
[2016-08-10 00:09] LABS: Hemoglobin A1C 7.9 %
[2016-08-10 01:47] LABS: Basophils % 0.4 %; Eosinophils # 0.1 K/mcL (0.0-0.6); Eosinophils % 1.7 %; Hematocrit 35.7 % (37.5-50.1); Immature Granulocytes % 0.4 % (0-4); Lymphocytes # 1.4 K/mcL (0.6-4.6); Lymphocytes % 17.8 %; Mean Corpuscular HGB Conc 33.6 g/dL (31.6-35.5); Mean Corpuscular Hemoglobin 29.9 pg (28.0-33.3); Mean Corpuscular Volume 88.8 fL (83.0-100.0); Mean Platelet Volume 11.2 fL (9.4-12.4); Monocytes # 0.7 K/mcL (0.0-1.3); Neutrophils # 5.7 K/mcL (1.6-8.9); Platelet Count 122 K/mcL (140-400); Red Blood Count 4.02 M/mcL (4.19-5.50); Red Cell Distribution Width 15.1 % (11.5-14.5); Segmented Neutrophils % 70.7 %
[2016-08-10 02:05] LABS: BUN/Creatinine Ratio 9 (6-26); Blood Urea Nitrogen 12 mg/dL (8-26); Calcium 7.7 mg/dL (8.6-10.8); Carbon Dioxide 21 mEq/L (19-29); Chloride 107 mEq/L (98-109); Glucose 183 mg/dL (70-99); Magnesium 1.5 mg/dL (1.6-2.6); Osmolality,Calculated 284 (280-300); Potassium 3.9 mEq/L (3.5-4.5); Sodium 135 mEq/L (136-145); eGFR For African Americans > 60 (> 60); eGFR For Non-African Americans 53 (> 60)
[2016-08-10] MEDS ORDERED: Magnesium Sulfate 2 GM in D5% in Water 100 ML IVPB ONE (08:12)
[2016-08-10] MEDS ORDERED: Aspirin 81 MG TAB.CHEW PO SCH (09:00)
[2016-08-10] MEDS ORDERED: *HR* Ticagrelor 90 MG TABLET PO SCH (09:00)
[2016-08-10] MEDS: Insulin LISPRO 300 UNITS/3 ML VIAL SQ SCH ×3 (09:14→18:03)
--- NOTE | 2016-08-10 09:19 | Internal Med Progress Note ---
Date of Encounter: 08/10/16 Time of Encounter: 07:50 - Assessment and plan (1) Bradycardia Current Visit: Yes Status: Resolved Assessment and plan: Secondary to inferior wall FL. Received temporary venous pacemaker during attempted intervention for revascularization, has been removed since. Heart rate is currently normal, resume beta mary and continue telemetry monitoring. (2) ST elevation myocardial infarction (STEMI) of inferior wall Current Visit: Yes Status: Acute Assessment and plan: EKG shows ST elevation in inferior leads. Initial serum troponin noted to be greater than 50, currently trending down. Continue telemetry monitoring. Currently hemodynamically stable. Attempts to place a bare metal stent to SVG, at an outside facility, showed no reflow, no further intervention could be initiated and patient was transferred here for a second opinion. Cardiology consult appreciated-recommend to maximize medical management and no interventional procedure at this time. Discontinue IV heparin drip. Continue aspirin, Brilinta, statin and resume beta mary since heart rate is improved and start nitrates. Patient is currently chest pain-free. Echocardiogram shows 55% ejection fraction with mild inferior wall hypokinesis. Continue to monitor closely. (3) CAD (coronary artery disease) Current Visit: Yes Status: Chronic Qualifiers: Coronary Disease-Associated Artery/Lesion type: bypass graft [place] vs. transplanted heart: [place] heart Associated angina: without angina Qualified Code(s): I25.810 - Atherosclerosis of coronary artery bypass graft(s) without angina pectoris (4) Diastolic CHF Current Visit: Yes Status: Chronic Qualifiers: Congestive heart failure chronicity: chronic Qualified Code(s): I50.32 - Chronic diastolic (congestive) heart failure (5) Obesity (BMI 30-39.9) Current Visit: Yes Status: Chronic (6) COPD (chronic obstructive pulmonary disease) Current Visit: Yes Status: Chronic Assessment and plan: Not noted to be in acute exacerbation. Continue bronchodilators and supplemental oxygen as needed. Qualifiers: COPD type: unspecified COPD Qualified Code(s): J44.9 - Chronic obstructive pulmonary disease, unspecified (7) CKD (chronic kidney disease) stage 3, GFR 30-59 ml/min Current Visit: Yes Status: Chronic Assessment and plan: Serum creatinine noted to be improving back to baseline. Continue to monitor and avoid new nephrotoxic agents. (8) Hypertension Current Visit: Yes Status: Chronic Qualifiers: Hypertension type: essential hypertension Qualified Code(s): I10 - Essential (primary) hypertension - Subjective Interval history: Reports feeling better. Continues to breathe hard but reports no subjective dyspnea. No chest pain or palpitations or dizziness. - Constitutional Vitals: Temp Pulse Resp BP Pulse Ox 98.4 F 73 23 125/101 96 08/10/16 08:01 08/10/16 06:00 08/10/16 06:00 08/10/16 06:00 08/10/16 06:00 General appearance: Present: cooperative, mild distress, A&O X 3, answers questions appropriately - Head Head exam: Present: atraumatic, normocephalic - Neck Neck exam general surgery: Present: supple, trachea midline. Absent: lymphadenopathy - Respiratory Respiratory exam: Present: CTAB. Absent: accessory muscle use, rales, rhonchi, wheezes - Cardiovascular Cardiovascular exam: Present: RRR, +S1, +S2. Absent: diastolic murmur, gallop, rubs, systolic murmur - GI/Abdominal GI/Abdominal exam: Present: normal bowel sounds, soft (Obese), no peritoneal signs. Absent: distended, tenderness - Extremities Exam Extremities exam: Present: pedal edema (Trace bilateral pedal edema), warm, radial pulses palpable and symetrical. Absent: calf tenderness, cyanotic - Neurological Exam Neurological exam: Present: CN II-XII intact, oriented X3, no focal deficits. Absent: pronater drift, facial droop, speech deficit - Skin Skin exam: Present: dry, intact Internal Medicine: Result - Labs CBC & Chem 7: 08/10/16 01:30 08/10/16 01:30 Labs: Short CBC 08/09/16 08/10/16 Range/Units 22:00 01:30 WBC 8.6 8.0 (4.3-11.1) K/mcL Hgb 12.5 L 12.0 L (12.9-16.9) g/dL Hct 38.4 35.7 L (37.5-50.1) % Plt Count 135 L 122 L (140-400) K/mcL Neutrophils # 5.7 (1.6-8.9) K/mcL BMP 08/09/16 08/10/16 22:00 01:30 Sodium 134 L 135 L Potassium 4.2 3.9 Chloride 105 107 Carbon Dioxide 23 21 BUN 12 12 Creatinine 1.56 H 1.38 H Glucose 180 H 183 H Calcium 8.4 L 7.7 L Cardiac Enzymes 08/09/16 08/10/16 08/10/16 Range/Units 22:00 01:30 05:49 Troponin I > 50.00 H* 48.78 H* 43.09 H* (0-0.03) ng/mL Liver Function 08/09/16 Range/Units 22:00 Total Bilirubin 0.8 (0.2-1.2) mg/dL AST 87 H (5-34) Units/L ALT 46 (0-55) Units/L Alkaline Phosphatase 76 (38-126) Units/L Albumin 2.9 L (3.5-5.0) g/dL - ABG Interpretation ABG results: PT/INR, D-dimer PT 12.3 Seconds (9.4-12.1) H 08/09/16 22:00 - Impressions Impressions Chest X-Ray 08/09/16 22:54 IMPRESSION: Stable appearance of the chest with no acute abnormality. D/ / Percy Pierson MD / Percy Pierson MD Interpreting Provider: Percy Pierson MD - VTE Reasons for not Prescribing Prophylaxis: Not indicated-Anticoagulated or INR therapeutic Consult Discharge Plan - Plan Additional Instructions: RISK FACTORS: STOP SMOKING: If you smoke, STOP. Smoking or tobacco use significantly increases your risk of heart disease because nicotine causes the arteries to narrow or constrict. It also causes fats to stick to the artery. Your chances of having a heart attack are greatly increased if you continue to smoke. For more information, call the education line for smoking cessation [id number]-[id number] EAT A LOW FAT/CHOLESTEROL/SODIUM DIET: This diet may help reduce your chances of having a heart attack. LIFTING: Avoid lifting anything more than 10 pounds for 5-7 days Prior to straining, laughing, sneezing and/or coughing, apply manual pressure directly over insertion site. ACTIVITY: You may walk or climb stairs as tolerated You can resume sexual activity as tolerated In general, you are encouraged to engage in a minimum of 30 minutes or more of moderate intensity physical activity, such as brisk walking, daily or at least 3 -4 times weekly BATHING Do not submerge the site into water (bath tub, hot tub, swimming pool) for 1 week. This can be a source for infection into the blood stream. You may shower after 24 hours SITE CARE: After 24 hours, you may remove the dressing and leave the site open to air. Keep the site clean and dry. Clean gently and pat dry. You can expect bruising and tenderness that gradually resolve within a week or two. Return to work as instructed per your physician Resume driving as instructed per physician Keep all scheduled follow up appointments Resume medications as instructed IMPORTANT: If prescribed a Platelet Aggregation Inhibitor such as, Plavix, Brilinta or Effient: Duration of therapy is minimum one year These medications are often used in combination with Aspirin in prevention of future heart attacks Never discontinue unless consult with your Box Shook Patcher STROKE (CVA) Risk factors for a stroke are: Age, cigarette smoking, diabetes, excessive alcohol consumption, family history, high blood pressure, overweight, physical inactivity, prior stroke, heart attack, diagnosis of carotid artery stenosis or other artery disease. Warning signs: Sudden numbness or weakness of the face, arm or leg; especially on one side of the body, sudden confusion, trouble speaking or understanding, sudden trouble seeing in one or both eyes, sudden trouble walking, dizziness, loss of balance or coordination, sudden severe headache with no cause. Call 911 or go to the Emergency Room. CONGESTIVE HEART FAILURE: If you have been diagnosed with Congestive Heart Failure (CHF) and your symptoms return, make an appointment with your physician Weigh yourself daily. Notify your physician if you have a weight gain of two or more pounds in one day or five or more pounds in one week. If you experience any difficulty breathing, please call 911 BLEEDING: Although the risk of bleeding is minimal, it can happen. If you have any bleeding from the site, apply firm pressure above the puncture site for 10-15 minutes. If the bleeding does not stop, continue manual pressure and call 911 Contact your physician if: You develop a fever greater than 101 degrees Fahrenheit Your site becomes reddened or has any drainage You have an increase in pain or burning at the site or if a large knot forms at the site. If you experience chest pain, shortness of breath, dizziness, or extreme tiredness, stop the activity and rest. Please notify your physicians office if you experience any of these symptoms and they are not relieved by rest please call 911! Referrals: Pattie Bloom CNP [Primary Care Provider] -
--- NOTE | 2016-08-10 10:30 | ECHO - Doppler Report ---
Limited Echocardiogram Name: Nolan Singh Date of Study: 08/10/2016 Date: 1955 Ht: 67.0 in Medical Record#: [id number] Age: 60 Wt: 251.0 lb Gender: Male BSA: 2.23 Order #: [id number] Location: [facility] Room #: [facility] Reading Physician: Torres Boyd DO, FACC, FASE, FASNC Color Maker Dyer: Pamella Sullivan RDCS Ordering Physician: Devyn Awan MD Primary Physician: Pattie Bloom CNP Indications: STEMI Impressions: LVEF 55%. Normal LV chamber size, wall thickness and overall function. Mild segmental left ventricular systolic dysfunction. Atypical septal motion consistent with post-operative status. Limited study for LV function. Left Ventricular Wall Motion: Rest Echo Findings The basal inferior wall was hypokinetic. All other wall segments showed normal motion. Findings: Study Quality * Technically adequate exam. ECG Findings * Normal sinus rhythm. Left Ventricle * LVEF 55%. * Normal LV chamber size, wall thickness and overall function. * Mild segmental left ventricular systolic dysfunction. * Atypical septal motion consistent with post-operative status. Right Ventricle * Normal right ventricular structure and function. History Hypertension Hypercholesteremia Family History of CAD History of CAD/PTCA Myocardial Infarction Coronary Artery Bypass Graft Congestive Heart Failure 07/03/2016 a Previous Echo was performed. Measurements: BP: 125/ 101 2D Normal Values RVIDd: 2.93 cm <2.7 cm IVSd: 1.15 cm 0.6 - 1.0 cm LVIDd: 5.71 cm 3.7 - 5.6 cm LVPWd: 1.08 cm 0.6 - 1.1 cm LVIDs: 3.11 cm 1.5 - 3.6 cm AO: 3.70 cm < 4.0 cm LA: 3.60 cm 2.0 - 4.0cm %FS: 45.50 cm >25 % LA volume: Updated by Torres Boyd DO, FACC, FASE, FASNC on 08/10/2016 10:22:34 AM electronically signed on 08/10/2016 10:24:31 AM with status of Final Wall Motion [place]: 1=Normal, 2=Hypokinesis, 3=Akinesis, 4=Dyskinesis, 5=Aneurysmal, 6=Hyperkinetic, X=Not Visualized (Blank)=Missing
--- NOTE | 2016-08-10 11:15 | Cardiology Consult Note ---
Addendum entered and electronically signed by Ramone Wong CNP 08/10/16 13:20: Error under STEMI. The OM is area of which viability may be able to be evaluated in future if deemed necessary, not RCA. Original Note: Date of Encounter: 08/10/16 Time of Encounter: 11:04 Assessment and Plan (1) ST elevation myocardial infarction (STEMI) of inferior wall Current Visit: Yes Status: Acute [facility] 08/07/16-multivessel CAD--unclear if STONE was attached only to diag and also LAD. SVG-OM occluded and [place] lesion subtotal or total occlusion. Prox RCA 100 % occluded. SVG acutely occluded. Attempt made of PCI SVG-RCA. Massive clot burden, temporary pacemaker placed prior to thrombectomy--since removed. BMS deployed to prox SVG. No reflow. Pt was told no further intervention could be done. He requested transfer for a second opinion. Initial troponin >50, now downtrending 48.78, 43.09. 24 hour tele AVG HR 74, longest pause 2.3 seconds. Cath films reviewed with oil pit attendant, Dr. Margareth Rubalcava. She agrees that no further intervention can be done at this time or at our facility. If symptoms persist as outpt--can be referred to tertiary facility to evaluate viability of PHOTONICS ENGINEER RCA to see if it can be intervened on. Pt having chest pain 2/10. Will initiate nitrates and uptitrate as necessary. Stop heparin gtt. Continue DAPT (ASA and Brilinta). Continue statin, restart BB. Right femoral access site healing well. Moderate amount of ecchymosis. No hematoma or bleeding. Limited echo resulted-- EF 55%, mild segmental LV systolic dysfunction--basal inferior wall hypokinesis. Continue to follow. (2) CKD (chronic kidney disease) stage 3, GFR 30-59 ml/min Current Visit: Yes Status: Chronic Renal function improving--near baseline. Continue to monitor. (3) Hypertension Current Visit: Yes Status: Chronic 140s/100s at bedside. Resume low dose Coreg. Titrate as necessary and adjust antihypertensives as BP warrants. Qualifiers: Hypertension type: essential hypertension Qualified Code(s): I10 - Essential (primary) hypertension (4) CAD (coronary artery disease) Current Visit: Yes Status: Acute See plan under STEMI. ASA, Brilinta, Statin, restart BB and initiate nitrate therapy. Qualifiers: Coronary Disease-Associated Artery/Lesion type: unspecified vessel or lesion type [place] vs. transplanted heart: [place] heart Associated angina: angina presence unspecified Qualified Code(s): I25.10 - Atherosclerotic heart disease of [place] coronary artery without angina pectoris Discussion w patient/family: The assessment and plan as outlined above was discussed with the patient and/or family members who expressed understanding and agreement. All questions were answered. Thank you for involving us in the care of your patient. Please call with any questions. I will discuss all the above with Dr. Stanislav Rubalcava and make changes as necessary. History of Present Illness Consult date: 08/10/16 Requesting physician: Devyn Awan Consult reason: s/p STEMI Chief complaint: Chest pain History of present illness: Mr. Singh is a 60 year old male with PMH of CKD stage 3, CAD x 3 s/p CABG in 2012, COPD, hx of CVA. He presented to [facility] on Saturday for sudden onset of severe chest pressure and left shoulder pain. EMS found him to be having an acute STEMI. He was taken to cath lab tech. Cath revealed multivessel CAD--unclear if STONE was attached only to diag and also LAD. SVG-OM occluded and [place] lesion subtotal or total occlusion. Prox RCA 100% occluded. SVG acutely occluded. Attempt made of PCI SVG-RCA. Massive clot burden, temporary pacemaker placed prior to thrombectomy. BMS deployed to prox SVG. No reflow. Pt was told no further intervention could be done. He requested transfer for a second opinion. Initial troponin >50, now downtrending 48.78, 43.09. 24 hour tele AVG HR 74, longest pause 2.3 seconds. He currently reports left sided chest pressure 2/10 and left shoulder pain. Limited echo resulted--EF 55%, mild segmental LV systolic dysfunction--basal inferior wall hypokinetic. Past Med Surg Social Fam HX - Past Medical History Medical history: arthritis, CHF, COPD, coronary artery disease, CVA, hyperlipidemia, hypertension, myocardial infarction, osteoporosis, renal disease , TIA, other Psychiatric history: no psych history, other - Past Surgical History Surgical History: angioplasty/stent, coronary bypass (CABG), sinus surgery, vasectomy - Social History Smoking Status: Former smoker Smokeless Tobacco Status: No Alcohol use: occasionally Drug use: none - Family History Mother Living Status: Hx Family Cardiac Disorders: Yes (aneursym, HTN) Father Living Status: Hx Family Respiratory Disorders: Yes (COPD) Medications and Allergies Albuterol Sulfate [Proair Hfa] 2 puff IH Q4H PRN 07/02/16 [History] Aspirin 81 mg PO DAILY 07/02/16 [History] Atorvastatin [Lipitor] 40 mg PO HS 07/02/16 [History] Budesonide/Formoterol 160/4.5 [Symbicort 160/4.5] 2 puff IH BIDR 07/02/16 [ History] Carvedilol [Coreg] 25 mg PO BID 07/02/16 [History] Clopidogrel [Plavix] 75 mg PO DAILY 07/02/16 [History] Furosemide [Lasix] 20 mg PO DAILY 07/02/16 [History] Losartan [Cozaar] 25 mg PO DAILY 07/02/16 [History] Benzonatate [Tessalon] 200 mg PO TID PRN #15 capsule 07/04/16 [Rx] Fluticasone Propionate Nasal [Flonase] 50 mcg NS BID #1 bottle 07/04/16 [Rx] Allergies cephalexin [From Keflex] Allergy (Verified 06/26/15 04:35) Swelling of Lip/Tongue/Throat Penicillins Allergy (Verified 06/26/15 04:35) Hives lisinopril Adverse Reaction (Verified 07/02/16 16:05) Cough All Systems Review: A 10-system review of systems was performed and is negative for pertinent findings except as documented above in the HPI. - Cardiovascular Cardiovascular: as per HPI, chest pain at rest, chest pain with exertion, dyspnea on exertion, radiating jaw, neck or arm pain Physical Examination Vital Signs, Last 4 Hours Temp Pulse Resp BP Pulse Ox 08/10/16 10:47 69 12 144/107 97 08/10/16 09:08 78 12 142/110 95 08/10/16 08:01 98.4 F Vital Signs Temp Pulse Resp BP Pulse Ox 08/10/16 11:09 82 20 147/61 96 08/10/16 10:47 69 12 144/107 97 08/10/16 09:08 78 12 142/110 95 08/10/16 08:01 98.4 F 08/10/16 06:00 73 23 125/101 96 08/10/16 05:00 85 22 140/103 96 08/10/16 04:40 97.9 F 08/10/16 04:00 89 22 133/106 96 08/10/16 03:44 88 08/10/16 03:00 88 20 127/102 93 L 08/10/16 02:00 88 22 122/95 93 L 08/10/16 01:00 69 22 142/85 95 08/10/16 00:58 98.2 F 08/10/16 00:00 77 18 133/88 95 08/09/16 23:50 71 08/09/16 23:00 71 23 130/94 97 08/09/16 22:00 79 18 120/79 94 L 08/09/16 21:19 74 08/09/16 21:00 74 18 118/88 95 08/09/16 20:45 98.1 F 76 20 148/94 95 Intake and Output 08/09/16 08/10/16 08/10/16 23:59 07:59 15:59 Intake Total 240 / 240 138 / 138 Output Total 0 / 0 500 / 500 300 / 300 Balance 240 / 240 -362 / -362 -300 / -300 Intake: IV Fluids 138 / 138 Heparin 25,000 UNIT/500 138 / 138 ML D5W 25,000 unit In 500 ml @ 8.6 UNIT/KG/HR 19. 66 mls/hr IVC .Q24H [facility] Rx#:[id number] Oral 240 / 240 Output: Urine 0 / 0 300 / 300 Catheter 500 / 500 Other: Weight 114.3 kg 114.3 kg Blood Glucose* 191 152 Patient Weight 08/10/16 23:59 Weight 114.3 kg General: Conversant, No Apparent Distress HEENT: Atraumatic, Normocephaly, Mucus Membranes Moist Neck: No JVD, Normal carotid pulses Cardiac: Reg Rate and Rhythm, Normal S1 and S2, No Murmur Lungs: Normal Breath Sounds, No Wheeze, Rales, Rhonchi Neuro: Alert and responsive, No focal deficits noted Abdomen: Soft, Non-Tender Skin: Other (right femoral access site healing well. Moderate ecchymosis noted. No hematoma or bleeding. ) Musculoskeletal: No Chest Wall Tenderness Extremities: No Clubbing, No Cyanosis, No Edema, Normal Pulses Results 08/10/16 01:30 08/10/16 01:30 Lab Results 08/09/16 08/09/16 08/09/16 22:00 22:00 22:00 WBC 8.6 Hgb 12.5 L Hct 38.4 Plt Count 135 L INR 1.1 APTT 25.0 L Sodium 134 L Potassium 4.2 Chloride 105 Carbon Dioxide 23 BUN 12 Creatinine 1.56 H Glucose 180 H Calcium 8.4 L Magnesium Total Bilirubin 0.8 AST 87 H ALT 46 Alkaline Phosphatase 76 Troponin I 08/09/16 08/10/16 08/10/16 22:00 01:30 01:30 WBC 8.0 Hgb 12.0 L Hct 35.7 L Plt Count 122 L INR APTT Sodium Potassium Chloride Carbon Dioxide BUN Creatinine Glucose Calcium Magnesium Total Bilirubin AST ALT Alkaline Phosphatase Troponin I > 50.00 H* 48.78 H* 08/10/16 08/10/16 08/10/16 01:30 05:49 05:49 WBC Hgb Hct Plt Count INR APTT 49.7 H D Sodium 135 L Potassium 3.9 Chloride 107 Carbon Dioxide 21 BUN 12 Creatinine 1.38 H Glucose 183 H Calcium 7.7 L Magnesium 1.5 L Total Bilirubin AST ALT Alkaline Phosphatase Troponin I 43.09 H* - Imaging and Cardiology Echo: report reviewed Cardiac cath: report reviewed Consult Discharge Plan - Plan Additional Instructions: RISK FACTORS: STOP SMOKING: If you smoke, STOP. Smoking or tobacco use significantly increases your risk of heart disease because nicotine causes the arteries to narrow or constrict. It also causes fats to stick to the artery. Your chances of having a heart attack are greatly increased if you continue to smoke. For more information, call the education line for smoking cessation 2-084-PUIMGFA EAT A LOW FAT/CHOLESTEROL/SODIUM DIET: This diet may help reduce your chances of having a heart attack. LIFTING: Avoid lifting anything more than 10 pounds for 5-7 days Prior to straining, laughing, sneezing and/or coughing, apply manual pressure directly over insertion site. ACTIVITY: You may walk or climb stairs as tolerated You can resume sexual activity as tolerated In general, you are encouraged to engage in a minimum of 30 minutes or more of moderate intensity physical activity, such as brisk walking, daily or at least 3 -4 times weekly BATHING Do not submerge the site into water (bath tub, hot tub, swimming pool) for 1 week. This can be a source for infection into the blood stream. You may shower after 24 hours SITE CARE: After 24 hours, you may remove the dressing and leave the site open to air. Keep the site clean and dry. Clean gently and pat dry. You can expect bruising and tenderness that gradually resolve within a week or two. Return to work as instructed per your physician Resume driving as instructed per physician Keep all scheduled follow up appointments Resume medications as instructed IMPORTANT: If prescribed a Platelet Aggregation Inhibitor such as, Plavix, Brilinta or Effient: Duration of therapy is minimum one year These medications are often used in combination with Aspirin in prevention of future heart attacks Never discontinue unless consult with your Energy Audit Advisor STROKE (CVA) Risk factors for a stroke are: Age, cigarette smoking, diabetes, excessive alcohol consumption, family history, high blood pressure, overweight, physical inactivity, prior stroke, heart attack, diagnosis of carotid artery stenosis or other artery disease. Warning signs: Sudden numbness or weakness of the face, arm or leg; especially on one side of the body, sudden confusion, trouble speaking or understanding, sudden trouble seeing in one or both eyes, sudden trouble walking, dizziness, loss of balance or coordination, sudden severe headache with no cause. Call 911 or go to the Emergency Room. CONGESTIVE HEART FAILURE: If you have been diagnosed with Congestive Heart Failure (CHF) and your symptoms return, make an appointment with your physician Weigh yourself daily. Notify your physician if you have a weight gain of two or more pounds in one day or five or more pounds in one week. If you experience any difficulty breathing, please call 911 BLEEDING: Although the risk of bleeding is minimal, it can happen. If you have any bleeding from the site, apply firm pressure above the puncture site for 10-15 minutes. If the bleeding does not stop, continue manual pressure and call 911 Contact your physician if: You develop a fever greater than 101 degrees Fahrenheit Your site becomes reddened or has any drainage You have an increase in pain or burning at the site or if a large knot forms at the site. If you experience chest pain, shortness of breath, dizziness, or extreme tiredness, stop the activity and rest. Please notify your physicians office if you experience any of these symptoms and they are not relieved by rest please call 911! Referrals: Pattie Bloom CNP [Primary Care Provider] -
[2016-08-10] MEDS ORDERED: Isosorbide MONOnitrate (24 HR) 60 MG TAB.ER.24H PO SCH (11:30)
[2016-08-10] MEDS: 0.9 % Sodium Chloride 1,000 ML IVC SCH (13:01)
[2016-08-10] MEDS ORDERED: *HR* Dextrose 50 % in Water (Syg) 50 ML SYRINGE IVP PRN (15:47)
[2016-08-10] MEDS ORDERED: Naloxone 0.4 MG/ML INJ IVP PRN (15:47)
[2016-08-10] MEDS ORDERED: Dextrose Gel 15 GM PO PRN ×2 (15:47)
[2016-08-10] MEDS ORDERED: *HR* Morphine 2 MG/ML SYRINGE IVP PRN (15:47)
[2016-08-10] MEDS ORDERED: Ondansetron 4 MG/2 ML VIAL IVP PRN (15:47)
[2016-08-10] MEDS ORDERED: D5% in Water 1,000 ML IV PRN (15:47)
[2016-08-10] MEDS ORDERED: Acetaminophen 325 MG TABLET PO PRN (15:47)
[2016-08-10] MEDS ORDERED: Furosemide 20 MG/2 ML VIAL IVP ONE (15:51)
--- NOTE | 2016-08-10 16:52 | Electrocardiograph Report ---
[address] [place] [address] Test Date: 2016-08-09 Pat Name: Nolan Singh Department: 109 Room: 2A26 Gender: M Digital Media Designer: : 1955 Requested By: Devyn Awan Order Number: [id number] Reading MD: Margareth Rubalcava Measurements Intervals [place] Rate: 67 P: 38 CO: 194 QRS: -6 QRSD: 101 T: 111 QT: 377 QTc: 392 Interpretive Statements SINUS RHYTHM INFERIOR MYOCARDIAL INFARCTION WITH POSTERIOR EXTENSION, age indeterminate Electronically Signed On 08-10-2016 16:50:38 EDT by Margareth Rubalcava
[2016-08-10] MEDS ORDERED: *HR* Heparin 5,000 UNIT/ML VIAL SQ SCH (18:00)
[2016-08-10] MEDS: *HR* Heparin 5,000 UNIT/ML VIAL SQ SCH (18:03)
[2016-08-10] MEDS: *HR* Ticagrelor 90 MG TABLET PO SCH (21:34)
[2016-08-11] MEDS: *HR* Heparin 5,000 UNIT/ML VIAL SQ SCH ×2 (06:00→17:30)
[2016-08-11 07:04] LABS: BUN/Creatinine Ratio 9 (6-26); Blood Urea Nitrogen 12 mg/dL (8-26); Calcium 8.1 mg/dL (8.6-10.8); Carbon Dioxide 20 mEq/L (19-29); Chloride 106 mEq/L (98-109); Glucose 129 mg/dL (70-99); Magnesium 1.7 mg/dL (1.6-2.6); Osmolality,Calculated 281 (280-300); Potassium 3.9 mEq/L (3.5-4.5); Sodium 135 mEq/L (136-145); eGFR For African Americans > 60 (> 60); eGFR For Non-African Americans 52 (> 60)
[2016-08-11] MEDS: Insulin LISPRO 300 UNITS/3 ML VIAL SQ SCH ×3 (07:39→16:36)
[2016-08-11] MEDS: *HR* Ticagrelor 90 MG TABLET PO SCH ×2 (08:46→20:04)
[2016-08-11] MEDS: Aspirin 81 MG TAB.CHEW PO SCH (08:46)
[2016-08-11] MEDS ORDERED: Isosorbide MONOnitrate (24 HR) 60 MG TAB.ER.24H PO SCH (09:00)
--- NOTE | 2016-08-11 10:47 | Cardiology Progress Note ---
Date of Encounter: 08/11/16 Time of Encounter: 11:00 Assessment and Plan (1) ST elevation myocardial infarction (STEMI) of inferior wall Current Visit: Yes Status: Acute [facility] 08/07/16-multivessel CAD--unclear if STONE was attached only to diag and also LAD. SVG-OM occluded and [place] lesion subtotal or total occlusion. Prox RCA 100 % occluded. SVG acutely occluded. Attempt made of PCI SVG-RCA. Massive clot burden, temporary pacemaker placed prior to thrombectomy--since removed. BMS deployed to prox SVG. No reflow. Pt was told no further intervention could be done. He requested transfer for a second opinion. Initial troponin >50 at [facility]; now has downtrended to 27.39. Cath films reviewed with optical instrument assembler, Dr. Margareth Rubalcava. She agrees that no further intervention can be done at this time or at our facility. If symptoms persist as outpt--can be referred to tertiary facility to evaluate viability of RESPITE COORDINATOR RCA to see if it can be intervened on. Reports chest discomfort/shoulder pain this AM--will uptitrate nitrates. Restart home lasix for c/o swelling in feet and hands. Continue DAPT (ASA and Brilinta). Continue statin and betablocker (at reduced dose). Right femoral access site healing well. Moderate amount of ecchymosis. No hematoma or bleeding. Limited echo resulted-- EF 55%, mild segmental LV systolic dysfunction--basal inferior wall hypokinesis. Continue to follow. (2) MICH (obstructive sleep apnea) Current Visit: Yes Status: Acute High suspicion of untreated MICH--multiple family members including have reportedly told patient he needs a sleep study due: snoring and apnea. Telemetry reviewed; episodes of sinus pauses during nocturnal hours, longest episode this AM at 8:10, 6.4 seconds. Confirmed that patient was sleeping. Denies symptoms including dizziness, syncope, or pre-syncopal symptoms. Reviewed strips with Dr. Stanislav Rubalcava--recommend treatment of underlying MICH with CPAP/sleep study. Possible SPO2 trend overnight tonight--will defer to Hospitalist service. Discussed patient and findings with primary serice. (3) CKD (chronic kidney disease) stage 3, GFR 30-59 ml/min Current Visit: Yes Status: Chronic Renal function stable, baseline 1.6-1.8. (4) Hypertension Current Visit: Yes Status: Chronic Controlled, continue to monitor closely. Qualifiers: Hypertension type: essential hypertension Qualified Code(s): I10 - Essential (primary) hypertension (5) CAD (coronary artery disease) Current Visit: Yes Status: Chronic See plan under STEMI. ASA, Brilinta, Statin, restart BB and initiate nitrate therapy. Qualifiers: Coronary Disease-Associated Artery/Lesion type: bypass graft [place] vs. transplanted heart: [place] heart Associated angina: without angina Qualified Code(s): I25.810 - Atherosclerosis of coronary artery bypass graft(s) without angina pectoris Discussion w patient/family: The assessment and plan as outlined above was discussed with the patient and/or family members who expressed understanding and agreement. All questions were answered. Thank you for involving us in the care of your patient. Please call with any questions. The patient will be discussed and reviewed with Dr. Stanislav Rubalcava; changes to be made accordingly. Subjective Principal diagnosis: STEMI Interval history: Initially presented to [facility] as STEMI 3 days ago--PCI attempt was unsuccessful. He requested transfer to [facility] for second opinion. Stepped down to ICU yesterday. Reports chest discomfort and shoulder pain this AM, 4-5/10. Reports awoke with headache and increased swelling in bilateral hands and feet. Denies dizziness, syncope, palpitations, or shortness of breath. Objective Vital Signs, Last 4 Hours Temp Pulse Resp BP Pulse Ox 08/11/16 08:49 95 08/11/16 08:29 97.8 F 87 16 119/85 95 General: Conversant, No Apparent Distress HEENT: Atraumatic, Normocephaly, Mucus Membranes Moist Cardiac: Reg Rate and Rhythm, Normal S1 and S2 Lungs: Normal Breath Sounds Neuro: Alert and responsive Abdomen: Soft Skin: No rashes noted on visualized skin Musculoskeletal: No Chest Wall Tenderness Extremities: No Edema, Normal Pulses Results 08/10/16 01:30 08/11/16 06:17 Lab Results 08/10/16 08/11/16 08/11/16 13:21 06:17 06:17 APTT 31.5 Sodium 135 L Potassium 3.9 Chloride 106 Carbon Dioxide 20 BUN 12 Creatinine 1.40 H Glucose 129 H Calcium 8.1 L Magnesium 1.7 Troponin I 27.39 H* - Imaging and Cardiology Echo: report reviewed Cardiac cath: report reviewed Other Results: Telemetry reviewed: avg HR=72 SR. Episodes of sinus pauses noted. - EKG Interpretation EKG results cardiology: personally reviewed - VTE Reasons for not Prescribing Prophylaxis: Not indicated-Anticoagulated or INR therapeutic Consult Discharge Plan - Plan Additional Instructions: RISK FACTORS: STOP SMOKING: If you smoke, STOP. Smoking or tobacco use significantly increases your risk of heart disease because nicotine causes the arteries to narrow or constrict. It also causes fats to stick to the artery. Your chances of having a heart attack are greatly increased if you continue to smoke. For more information, call the education line for smoking cessation 0-335-CISYLCI EAT A LOW FAT/CHOLESTEROL/SODIUM DIET: This diet may help reduce your chances of having a heart attack. LIFTING: Avoid lifting anything more than 10 pounds for 5-7 days Prior to straining, laughing, sneezing and/or coughing, apply manual pressure directly over insertion site. ACTIVITY: You may walk or climb stairs as tolerated You can resume sexual activity as tolerated In general, you are encouraged to engage in a minimum of 30 minutes or more of moderate intensity physical activity, such as brisk walking, daily or at least 3 -4 times weekly BATHING Do not submerge the site into water (bath tub, hot tub, swimming pool) for 1 week. This can be a source for infection into the blood stream. You may shower after 24 hours SITE CARE: After 24 hours, you may remove the dressing and leave the site open to air. Keep the site clean and dry. Clean gently and pat dry. You can expect bruising and tenderness that gradually resolve within a week or two. Return to work as instructed per your physician Resume driving as instructed per physician Keep all scheduled follow up appointments Resume medications as instructed IMPORTANT: If prescribed a Platelet Aggregation Inhibitor such as, Plavix, Brilinta or Effient: Duration of therapy is minimum one year These medications are often used in combination with Aspirin in prevention of future heart attacks Never discontinue unless consult with your Oracle Ebs Developer STROKE (CVA) Risk factors for a stroke are: Age, cigarette smoking, diabetes, excessive alcohol consumption, family history, high blood pressure, overweight, physical inactivity, prior stroke, heart attack, diagnosis of carotid artery stenosis or other artery disease. Warning signs: Sudden numbness or weakness of the face, arm or leg; especially on one side of the body, sudden confusion, trouble speaking or understanding, sudden trouble seeing in one or both eyes, sudden trouble walking, dizziness, loss of balance or coordination, sudden severe headache with no cause. Call 911 or go to the Emergency Room. CONGESTIVE HEART FAILURE: If you have been diagnosed with Congestive Heart Failure (CHF) and your symptoms return, make an appointment with your physician Weigh yourself daily. Notify your physician if you have a weight gain of two or more pounds in one day or five or more pounds in one week. If you experience any difficulty breathing, please call 911 BLEEDING: Although the risk of bleeding is minimal, it can happen. If you have any bleeding from the site, apply firm pressure above the puncture site for 10-15 minutes. If the bleeding does not stop, continue manual pressure and call 911 Contact your physician if: You develop a fever greater than 101 degrees Fahrenheit Your site becomes reddened or has any drainage You have an increase in pain or burning at the site or if a large knot forms at the site. If you experience chest pain, shortness of breath, dizziness, or extreme tiredness, stop the activity and rest. Please notify your physicians office if you experience any of these symptoms and they are not relieved by rest please call 911! Referrals: Pattie Bloom CNP [Primary Care Provider] -
[2016-08-11] MEDS ORDERED: Furosemide 20 MG TABLET PO PRN (10:55)
[2016-08-11] MEDS ORDERED: Isosorbide MONOnitrate (24 HR) 30 MG TAB.ER.24H PO ONE (11:30)
[2016-08-11] MEDS: amLODIPine 5 MG TABLET PO SCH (14:33)
--- NOTE | 2016-08-11 14:33 | Internal Med Progress Note ---
Date of Encounter: 08/11/16 Time of Encounter: 12:00 - Assessment and plan (1) Bradycardia Current Visit: Yes Status: Resolved Assessment and plan: Resolved now. Telemetry monitoring shows 6-7sec pauses, happened twice today, associated with symptoms of shortness of breath and not feeling well; d/w Cardiology team, appreciate input; could be related to hypoxemia while asleep and possible underlying OHS/MICH given his body habitus and obesity; would benefit from outpatient sleep studies; will place on low flow O2 for now and evaluate for home O2; continue Telemetry; (2) ST elevation myocardial infarction (STEMI) of inferior wall Current Visit: Yes Status: Acute Assessment and plan: EKG shows ST elevation in inferior leads. Serum troponin currently trending down. Continue telemetry monitoring. Cardiology consult appreciated-recommend to maximize medical management and no interventional procedure at this time. Continue aspirin, Brilinta, statin and low-dose beta mary; increase the dose of nitrates due to ongoing chest discomfort. Attempts to place a bare metal stent to SVG, at an outside facility, showed no reflow, no further intervention could be initiated and patient was transferred here for a second opinion. (3) CAD (coronary artery disease) Current Visit: Yes Status: Chronic Assessment and plan: Continue aspirin, Brilinta, beta mary, nitrates and statin, as above. Outpatient cardiology follow-up. Qualifiers: Coronary Disease-Associated Artery/Lesion type: bypass graft [place] vs. 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 Continue remaining home medications as above. Qualifiers: Congestive heart failure chronicity: chronic Qualified Code(s): I50.32 - Chronic diastolic (congestive) heart failure (5) Obesity (BMI 30-39.9) Current Visit: Yes Status: Chronic (6) COPD (chronic obstructive pulmonary disease) Current Visit: Yes Status: Chronic Qualifiers: COPD type: unspecified COPD Qualified Code(s): J44.9 - Chronic obstructive pulmonary disease, unspecified (7) CKD (chronic kidney disease) stage 3, GFR 30-59 ml/min Current Visit: Yes Status: Chronic (8) Hypertension Current Visit: Yes Status: Chronic Qualifiers: Hypertension type: essential hypertension Qualified Code(s): I10 - Essential (primary) hypertension - Subjective Interval history: Reports exertional dyspnea on walking to the restroom; chest pain improving, has occasional left shoulder discomfort. Had a headache and fatigue on waking up this morning; also Telemetry showed 6sec pause just before he woke up; - Constitutional Vitals: Temp Pulse Resp BP Pulse Ox 97.8 F 87 16 119/85 95 08/11/16 08:29 08/11/16 08:29 08/11/16 08:29 08/11/16 08:29 08/11/16 08:49 General appearance: Present: cooperative, A&O X 3, answers questions appropriately - Respiratory Respiratory exam: Present: CTAB. Absent: accessory muscle use, rales, rhonchi, wheezes - Cardiovascular Cardiovascular exam: Present: RRR, +S1, +S2. Absent: diastolic murmur, gallop, rubs, systolic murmur - GI/Abdominal GI/Abdominal exam: Present: normal bowel sounds, soft (obese), no peritoneal signs. Absent: distended, tenderness - Extremities Exam Extremities exam: Present: full ROM, warm, radial pulses palpable and symetrical. Absent: calf tenderness, cyanotic, pedal edema Internal Medicine: Result - Labs CBC & Chem 7: 08/10/16 01:30 08/11/16 06:17 Labs: BMP 08/11/16 06:17 Sodium 135 L Potassium 3.9 Chloride 106 Carbon Dioxide 20 BUN 12 Creatinine 1.40 H Glucose 129 H Calcium 8.1 L Cardiac Enzymes 08/11/16 Range/Units 06:17 Troponin I 27.39 H* (0-0.03) ng/mL - ABG Interpretation ABG results: PT/INR, D-dimer PT 12.3 Seconds (9.4-12.1) H 08/09/16 22:00 - VTE Reasons for not Prescribing Prophylaxis: Not indicated-Anticoagulated or INR therapeutic Consult Discharge Plan - Plan Additional Instructions: RISK FACTORS: STOP SMOKING: If you smoke, STOP. Smoking or tobacco use significantly increases your risk of heart disease because nicotine causes the arteries to narrow or constrict. It also causes fats to stick to the artery. Your chances of having a heart attack are greatly increased if you continue to smoke. For more information, call the education line for smoking cessation 9-393-JLYTYED EAT A LOW FAT/CHOLESTEROL/SODIUM DIET: This diet may help reduce your chances of having a heart attack. LIFTING: Avoid lifting anything more than 10 pounds for 5-7 days Prior to straining, laughing, sneezing and/or coughing, apply manual pressure directly over insertion site. ACTIVITY: You may walk or climb stairs as tolerated You can resume sexual activity as tolerated In general, you are encouraged to engage in a minimum of 30 minutes or more of moderate intensity physical activity, such as brisk walking, daily or at least 3 -4 times weekly BATHING Do not submerge the site into water (bath tub, hot tub, swimming pool) for 1 week. This can be a source for infection into the blood stream. You may shower after 24 hours SITE CARE: After 24 hours, you may remove the dressing and leave the site open to air. Keep the site clean and dry. Clean gently and pat dry. You can expect bruising and tenderness that gradually resolve within a week or two. Return to work as instructed per your physician Resume driving as instructed per physician Keep all scheduled follow up appointments Resume medications as instructed IMPORTANT: If prescribed a Platelet Aggregation Inhibitor such as, Plavix, Brilinta or Effient: Duration of therapy is minimum one year These medications are often used in combination with Aspirin in prevention of future heart attacks Never discontinue unless consult with your Superintendent Service STROKE (CVA) Risk factors for a stroke are: Age, cigarette smoking, diabetes, excessive alcohol consumption, family history, high blood pressure, overweight, physical inactivity, prior stroke, heart attack, diagnosis of carotid artery stenosis or other artery disease. Warning signs: Sudden numbness or weakness of the face, arm or leg; especially on one side of the body, sudden confusion, trouble speaking or understanding, sudden trouble seeing in one or both eyes, sudden trouble walking, dizziness, loss of balance or coordination, sudden severe headache with no cause. Call 911 or go to the Emergency Room. CONGESTIVE HEART FAILURE: If you have been diagnosed with Congestive Heart Failure (CHF) and your symptoms return, make an appointment with your physician Weigh yourself daily. Notify your physician if you have a weight gain of two or more pounds in one day or five or more pounds in one week. If you experience any difficulty breathing, please call 911 BLEEDING: Although the risk of bleeding is minimal, it can happen. If you have any bleeding from the site, apply firm pressure above the puncture site for 10-15 minutes. If the bleeding does not stop, continue manual pressure and call 911 Contact your physician if: You develop a fever greater than 101 degrees Fahrenheit Your site becomes reddened or has any drainage You have an increase in pain or burning at the site or if a large knot forms at the site. If you experience chest pain, shortness of breath, dizziness, or extreme tiredness, stop the activity and rest. Please notify your physicians office if you experience any of these symptoms and they are not relieved by rest please call 911! Referrals: Pattie Bloom, [facility] [Primary Care Provider] -
[2016-08-12 04:56] LABS: ABG Base Excess -0.6 mEq/L (-2.0 to 3.0); ABG HCO3 23.1 mEQ/L (21-27); ABG Oxygen Saturation 96 % (95-98); ABG PCO2 34 mmHg (35-45); ABG PH 7.44 pH Units (7.32-7.45); ABG PO2 77 mmHg (85-104); ABG TCO2 24.1 mEq/L (20-26); Blood Gas FiO2 21 %
[2016-08-12] MEDS: *HR* Heparin 5,000 UNIT/ML VIAL SQ SCH ×2 (05:56→17:25)
[2016-08-12] MEDS: Insulin LISPRO 300 UNITS/3 ML VIAL SQ SCH ×4 (08:17→21:45)
[2016-08-12] MEDS: Aspirin 81 MG TAB.CHEW PO SCH (08:18)
[2016-08-12] MEDS: *HR* Ticagrelor 90 MG TABLET PO SCH ×2 (08:18→21:11)
[2016-08-12] MEDS: amLODIPine 5 MG TABLET PO SCH (08:19)
[2016-08-12] MEDS: Furosemide 20 MG TABLET PO SCH (08:19)
[2016-08-12 08:24] LABS: Alanine Aminotransferase 40 Units/L (0-55); Albumin 2.8 g/dL (3.5-5.0); Albumin/Globulin Ratio 0.7 (1.1-2.2); Alkaline Phosphatase 84 Units/L (38-126); Aspartate Amino Transferase 29 Units/L (5-34); BUN/Creatinine Ratio 10 (6-26); Bilirubin,Total 0.8 mg/dL (0.2-1.2); Blood Urea Nitrogen 14 mg/dL (8-26); Calcium 8.4 mg/dL (8.6-10.8); Carbon Dioxide 21 mEq/L (19-29); Chloride 106 mEq/L (98-109); Globulin 3.9 g/dL (2.4-3.5); Glucose 148 mg/dL (70-99); Magnesium 1.8 mg/dL (1.6-2.6); Osmolality,Calculated 285 (280-300); Sodium 136 mEq/L (136-145); Total Protein 6.7 g/dL (6.0-8.3); eGFR For African Americans > 60 (> 60); eGFR For Non-African Americans 52 (> 60)
[2016-08-12] MEDS ORDERED: Isosorbide MONOnitrate (24 HR) 60 MG TAB.ER.24H PO SCH (09:00)
[2016-08-12] MEDS ORDERED: Furosemide 40 MG/4 ML VIAL IVP ONE (09:21)
--- NOTE | 2016-08-12 09:27 | Cardiology Progress Note ---
Date of Encounter: 08/12/16 Time of Encounter: 09:00 Assessment and Plan (1) ST elevation myocardial infarction (STEMI) of inferior wall Current Visit: Yes Status: Acute [facility] 08/07/16-multivessel CAD--unclear if STONE was attached only to diag and also LAD. SVG-OM occluded and [place] lesion subtotal or total occlusion. Prox RCA 100 % occluded. SVG acutely occluded. Attempt made of PCI SVG-RCA. Massive clot burden, temporary pacemaker placed prior to thrombectomy--since removed. BMS deployed to prox SVG. No reflow. Pt was told no further intervention could be done. He requested transfer for a second opinion. Initial troponin >50 at [facility]; now has downtrended to 27.39. Cath films reviewed with lube technician, Dr. Margareth Rubalcava. She agrees that no further intervention can be done at this time or at our facility. If symptoms persist as outpt--can be referred to tertiary facility as outpatient to evaluate viability of [employer] RCA to see if it can be intervened on. Reports chest discomfort/shoulder pain this AM--will uptitrate nitrates. Reports shortness of breath with minimal exertion; suspect this is related to AMI. Will give IV lasix 40 mg x1 this AM to see if symptoms improve. Continue DAPT (ASA and Brilinta). Continue statin and betablocker (at reduced dose). Right femoral access site healing well. Moderate amount of ecchymosis. No hematoma or bleeding. Limited echo resulted-- EF 55%, mild segmental LV systolic dysfunction--basal inferior wall hypokinesis. Continue to follow. (2) MICH (obstructive sleep apnea) Current Visit: Yes Status: Acute High suspicion of untreated MICH--multiple family members including have reportedly told patient he needs a sleep study due: snoring and apnea. Telemetry reviewed; episodes of sinus pauses during nocturnal hours, longest 6.4 seconds. Confirmed that patient was sleeping. Denies symptoms including dizziness, syncope, or pre-syncopal symptoms. Reviewed strips with Dr. Stanislav Rubalcava--recommend treatment of underlying MICH with CPAP/sleep study. Patient request inpatient sleep study if possible--will defer further mgmt to Primary service. (3) CKD (chronic kidney disease) stage 3, GFR 30-59 ml/min Current Visit: Yes Status: Chronic Renal function stable, baseline 1.6-1.8. (4) Hypertension Current Visit: Yes Status: Chronic Control not ideal, Norvasc 5 mg daily started this AM. May uptitrate if needd. Qualifiers: Hypertension type: essential hypertension Qualified Code(s): I10 - Essential (primary) hypertension (5) CAD (coronary artery disease) Current Visit: Yes Status: Chronic See plan under STEMI. ASA, Brilinta, Statin, restart BB and initiate nitrate therapy. Qualifiers: Coronary Disease-Associated Artery/Lesion type: bypass graft [place] vs. 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 All questions were answered. Thank you for involving us in the care of your patient. Please call with any questions. The patient was discussed and reviewed with Dr. Stanislav Rubalcava who agrees with plan as stated above. Subjective Principal diagnosis: STEMI Interval history: Initially presented to [facility] as STEM[facility] on 08/07/16--PCI attempt was unsuccessful. He requested transfer to [facility] for second opinion. Stepped out of ICU on 08/10/16. Reports chest discomfort and shoulder pain this AM, 1-07/06. Denies dizziness, syncope, palpitations, or shortness of breath. Objective Vital Signs, Last 4 Hours Temp Pulse Resp BP Pulse Ox 08/12/16 06:56 97.7 F 74 20 170/120 97 General: Conversant, No Apparent Distress HEENT: Atraumatic, Normocephaly, Mucus Membranes Moist Cardiac: Reg Rate and Rhythm, Normal S1 and S2 Lungs: Normal Breath Sounds Neuro: Alert and responsive Abdomen: Soft Skin: No rashes noted on visualized skin Musculoskeletal: No Chest Wall Tenderness Extremities: No Edema, Normal Pulses Results 08/10/16 01:30 08/12/16 07:57 Lab Results 08/12/16 07:57 Sodium 136 Potassium 4.0 Chloride 106 Carbon Dioxide 21 BUN 14 Creatinine 1.40 H Glucose 148 H Calcium 8.4 L Magnesium 1.8 Total Bilirubin 0.8 AST 29 ALT 40 Alkaline Phosphatase 84 Active Medications Acetaminophen (Tylenol) 650 mg PO Q6HR PRN PRN Reason: fever GREATER than 101.2 F Stop: 02/08/17 21:46 Last Admin: 08/11/16 20:04 Dose: 650 mg Amlodipine Besylate (Norvasc) 5 mg PO DAILY [facility] PRN Reason: Protocol Stop: 02/10/17 14:31 Last Admin: 08/12/16 08:19 Dose: 5 mg Aspirin (Aspirin) 81 mg PO DAILY [facility] Stop: 02/09/17 09:01 Last Admin: 08/12/16 08:18 Dose: 81 mg Atorvastatin Calcium (Lipitor) 40 mg PO HS [facility] Stop: 02/10/17 21:01 Last Admin: 08/11/16 20:04 Dose: 40 mg Carvedilol (Coreg) 3.125 mg PO BIDWM [facility] PRN Reason: Protocol Stop: 02/09/17 11:19 Last Admin: 08/12/16 08:25 Dose: 3.125 mg Dextrose/Water (Dextrose 50% (Syg)) 25 ml IVP AD PRN PRN Reason: Hypoglycemia Stop: 02/08/17 22:55 Furosemide (Lasix) 20 mg PO DAILY PRN PRN Reason: Edema Stop: 02/10/17 10:56 Last Admin: 08/11/16 11:16 Dose: 20 mg Furosemide (Lasix) 20 mg PO DAILY [facility] Stop: 02/11/17 09:01 Last Admin: 08/12/16 08:19 Dose: 20 mg Glucagon (Glucagen) 1 mg IM ONCE PRN PRN Reason: Hypoglycemia Stop: 02/08/17 22:55 Glucose (Gluctose) 15 gm PO ONCE PRN PRN Reason: Hypoglycemia Stop: 02/08/17 22:55 Glucose (Gluctose) 30 gm PO ONCE PRN PRN Reason: Hypoglycemia Stop: 02/08/17 22:55 Heparin Sodium (Porcine) (Heparin) 5,000 unit SQ Q12HCO [facility] Stop: 02/09/17 18:01 Last Admin: 08/12/16 05:56 Dose: 5,000 unit Dextrose (Dextrose 5%) 1,000 mls @ 100 mls/hr IV CONT PRN PRN Reason: HYPOGLYCEMIA Stop: 02/08/17 22:55 Insulin Human Lispro (Humalog) 0 units SQ TIDAC [facility] PRN Reason: Protocol Stop: 02/09/17 07:31 Last Admin: 08/12/16 08:17 Dose: Not Given Isosorbide Mononitrate (Imdur) 120 mg PO DAILY [facility] Stop: 02/12/17 09:01 Morphine Sulfate (Morphine Sulfate) 2 mg IVP Q2H PRN PRN Reason: Chest Pain Stop: 02/08/17 21:46 Naloxone HCl (Narcan) 0.4 mg IVP Q2MIN PRN PRN Reason: Opioid Reversal Stop: 02/08/17 21:46 Ondansetron HCl (Zofran) 4 mg IVP Q6HR PRN; Protocol PRN Reason: Nausea And Vomiting Stop: 02/08/17 21:46 Ticagrelor (Brilinta) 90 mg PO BID [facility] Stop: 02/09/17 09:01 Last Admin: 08/12/16 08:18 Dose: 90 mg - Imaging and Cardiology Echo: report reviewed Cardiac cath: report reviewed Other Results: Telemetry reviewed; avg HR=74 SR. Nocturnal pauses noted. - EKG Interpretation EKG results cardiology: personally reviewed - VTE Reasons for not Prescribing Prophylaxis: Not indicated-Anticoagulated or INR therapeutic Consult Discharge Plan - Plan Additional Instructions: RISK FACTORS: STOP SMOKING: If you smoke, STOP. Smoking or tobacco use significantly increases your risk of heart disease because nicotine causes the arteries to narrow or constrict. It also causes fats to stick to the artery. Your chances of having a heart attack are greatly increased if you continue to smoke. For more information, call the education line for smoking cessation 5-723-OGDVOVD EAT A LOW FAT/CHOLESTEROL/SODIUM DIET: This diet may help reduce your chances of having a heart attack. LIFTING: Avoid lifting anything more than 10 pounds for 5-7 days Prior to straining, laughing, sneezing and/or coughing, apply manual pressure directly over insertion site. ACTIVITY: You may walk or climb stairs as tolerated You can resume sexual activity as tolerated In general, you are encouraged to engage in a minimum of 30 minutes or more of moderate intensity physical activity, such as brisk walking, daily or at least 3 -4 times weekly BATHING Do not submerge the site into water (bath tub, hot tub, swimming pool) for 1 week. This can be a source for infection into the blood stream. You may shower after 24 hours SITE CARE: After 24 hours, you may remove the dressing and leave the site open to air. Keep the site clean and dry. Clean gently and pat dry. You can expect bruising and tenderness that gradually resolve within a week or two. Return to work as instructed per your physician Resume driving as instructed per physician Keep all scheduled follow up appointments Resume medications as instructed IMPORTANT: If prescribed a Platelet Aggregation Inhibitor such as, Plavix, Brilinta or Effient: Duration of therapy is minimum one year These medications are often used in combination with Aspirin in prevention of future heart attacks Never discontinue unless consult with your Social Work Nurse STROKE (CVA) Risk factors for a stroke are: Age, cigarette smoking, diabetes, excessive alcohol consumption, family history, high blood pressure, overweight, physical inactivity, prior stroke, heart attack, diagnosis of carotid artery stenosis or other artery disease. Warning signs: Sudden numbness or weakness of the face, arm or leg; especially on one side of the body, sudden confusion, trouble speaking or understanding, sudden trouble seeing in one or both eyes, sudden trouble walking, dizziness, loss of balance or coordination, sudden severe headache with no cause. Call 911 or go to the Emergency Room. CONGESTIVE HEART FAILURE: If you have been diagnosed with Congestive Heart Failure (CHF) and your symptoms return, make an appointment with your physician Weigh yourself daily. Notify your physician if you have a weight gain of two or more pounds in one day or five or more pounds in one week. If you experience any difficulty breathing, please call 911 BLEEDING: Although the risk of bleeding is minimal, it can happen. If you have any bleeding from the site, apply firm pressure above the puncture site for 10-15 minutes. If the bleeding does not stop, continue manual pressure and call 911 Contact your physician if: You develop a fever greater than 101 degrees Fahrenheit Your site becomes reddened or has any drainage You have an increase in pain or burning at the site or if a large knot forms at the site. If you experience chest pain, shortness of breath, dizziness, or extreme tiredness, stop the activity and rest. Please notify your physicians office if you experience any of these symptoms and they are not relieved by rest please call 911! Referrals: Pattie Bloom CNP [Primary Care Provider] - (web request 08/12/16)
--- NOTE | 2016-08-12 17:13 | Internal Med Progress Note ---
Date of Encounter: 08/12/16 Time of Encounter: 12:00 - Assessment and plan (1) Bradycardia Current Visit: Yes Status: Resolved Assessment and plan: Resolved now. Telemetry monitoring shows 6-7sec pauses, associated with symptoms of shortness of breath and PND at night, during sleep; Cardiology f/up noted; recommend evaluation for sleep apnea; f/up chest XRay; d/w ICU attending , recommend to d/w , who may arrange for transient CPAP for patient prior to formal sleep studies as outpatient; will start CPAP tonight; continue continuous supplemental O2; continue Telemetry; (2) ST elevation myocardial infarction (STEMI) of inferior wall Current Visit: Yes Status: Acute Assessment and plan: EKG shows ST elevation in inferior leads. Serum troponin currently trending down. Continue telemetry monitoring. Cardiology consult appreciated-recommend to maximize medical management and no interventional procedure at this time. Continue aspirin, Brilinta, statin and low-dose beta mary; started Norvasc for appropriate BP control. further increase the dose of nitrates due to ongoing chest discomfort. Attempts to place a bare metal stent to SVG, at an outside facility, showed no reflow, no further intervention could be initiated and patient was transferred here for a second opinion. (3) CAD (coronary artery disease) Current Visit: Yes Status: Chronic Assessment and plan: Continue aspirin, Brilinta, beta mary, nitrates and statin, as above. Outpatient cardiology follow-up. Qualifiers: Coronary Disease-Associated Artery/Lesion type: bypass graft [place] vs. transplanted heart: [place] heart Associated angina: without angina Qualified Code(s): I25.810 - Atherosclerosis of coronary artery bypass graft(s) without angina pectoris (4) Diastolic CHF Current Visit: Yes Status: Chronic Assessment and plan: Continue home medications; Qualifiers: Congestive heart failure chronicity: chronic Qualified Code(s): I50.32 - Chronic diastolic (congestive) heart failure (5) Obesity (BMI 30-39.9) Current Visit: Yes Status: Chronic (6) COPD (chronic obstructive pulmonary disease) Current Visit: Yes Status: Chronic Qualifiers: COPD type: unspecified COPD Qualified Code(s): J44.9 - Chronic obstructive pulmonary disease, unspecified (7) CKD (chronic kidney disease) stage 3, GFR 30-59 ml/min Current Visit: Yes Status: Chronic Assessment and plan: Serum creatinine noted to be improving back to baseline. Continue to monitor and avoid new nephrotoxic agents. (8) Hypertension Current Visit: Yes Status: Chronic Assessment and plan: Started Norvasc, continue beta-mary and nitrate; BP fairly controlled; Qualifiers: Hypertension type: essential hypertension Qualified Code(s): I10 - Essential (primary) hypertension - Subjective Interval history: Continues to have exertional dyspnea and occasional chest discomfort, which has improved; Telemetry showed 6-7 sec pauses overnight and patient did have episodes of correlating dyspnea and PND; has right lower abdominal muscle cramping, not associated with food or bowel movements; - Constitutional Vitals: Temp Pulse Resp BP Pulse Ox 97.4 F L 71 17 128/84 96 08/12/16 15:18 08/12/16 15:18 08/12/16 15:18 08/12/16 15:18 08/12/16 15:18 General appearance: Present: cooperative, A&O X 3, answers questions appropriately - Respiratory Respiratory exam: Present: CTAB. Absent: accessory muscle use, rales, rhonchi, wheezes - Cardiovascular Cardiovascular exam: Present: RRR, +S1, +S2. Absent: diastolic murmur, gallop, rubs, systolic murmur - GI/Abdominal GI/Abdominal exam: Present: normal bowel sounds, soft (obese abdomen with no visible masses/lumps, nontender), no peritoneal signs. Absent: distended, tenderness - Extremities Exam Extremities exam: Present: full ROM, warm, radial pulses palpable and symetrical. Absent: calf tenderness, cyanotic, pedal edema - Neurological Exam Neurological exam: Present: CN II-XII intact, oriented X3, no focal deficits. Absent: pronater drift, facial droop, speech deficit Internal Medicine: Result - Labs CBC & Chem 7: 08/10/16 01:30 08/12/16 07:57 Labs: BMP 08/12/16 07:57 Sodium 136 Potassium 4.0 Chloride 106 Carbon Dioxide 21 BUN 14 Creatinine 1.40 H Glucose 148 H Calcium 8.4 L Liver Function 08/12/16 Range/Units 07:57 Total Bilirubin 0.8 (0.2-1.2) mg/dL AST 29 (5-34) Units/L ALT 40 (0-55) Units/L Alkaline Phosphatase 84 (38-126) Units/L Albumin 2.8 L (3.5-5.0) g/dL - ABG Interpretation ABG results: ABG ABG pH 7.44 pH Units (7.32-7.45) 08/12/16 04:46 ABG pCO2 34 mmHg (35-45) L 08/12/16 04:46 ABG pO2 77 mmHg (85-104) L 08/12/16 04:46 ABG O2 Saturation 96 % (95-98) 08/12/16 04:46 PT/INR, D-dimer PT 12.3 Seconds (9.4-12.1) H 08/09/16 22:00 - Impressions Impressions Chest X-Ray 08/12/16 11:40 IMPRESSION: Stable chest. No acute pulmonary process. D/ / 08/12/2016 14:30:56 Alicia Ac MD / victor hugo Interpreting Provider: Alicia Ac MD - VTE Reasons for not Prescribing Prophylaxis: Not indicated-Anticoagulated or INR therapeutic Consult Discharge Plan - Plan Additional Instructions: RISK FACTORS: STOP SMOKING: If you smoke, STOP. Smoking or tobacco use significantly increases your risk of heart disease because nicotine causes the arteries to narrow or constrict. It also causes fats to stick to the artery. Your chances of having a heart attack are greatly increased if you continue to smoke. For more information, call the education line for smoking cessation 6-673-RRYPCZB EAT A LOW FAT/CHOLESTEROL/SODIUM DIET: This diet may help reduce your chances of having a heart attack. LIFTING: Avoid lifting anything more than 10 pounds for 5-7 days Prior to straining, laughing, sneezing and/or coughing, apply manual pressure directly over insertion site. ACTIVITY: You may walk or climb stairs as tolerated You can resume sexual activity as tolerated In general, you are encouraged to engage in a minimum of 30 minutes or more of moderate intensity physical activity, such as brisk walking, daily or at least 3 -4 times weekly BATHING Do not submerge the site into water (bath tub, hot tub, swimming pool) for 1 week. This can be a source for infection into the blood stream. You may shower after 24 hours SITE CARE: After 24 hours, you may remove the dressing and leave the site open to air. Keep the site clean and dry. Clean gently and pat dry. You can expect bruising and tenderness that gradually resolve within a week or two. Return to work as instructed per your physician Resume driving as instructed per physician Keep all scheduled follow up appointments Resume medications as instructed IMPORTANT: If prescribed a Platelet Aggregation Inhibitor such as, Plavix, Brilinta or Effient: Duration of therapy is minimum one year These medications are often used in combination with Aspirin in prevention of future heart attacks Never discontinue unless consult with your Evp Sales STROKE (CVA) Risk factors for a stroke are: Age, cigarette smoking, diabetes, excessive alcohol consumption, family history, high blood pressure, overweight, physical inactivity, prior stroke, heart attack, diagnosis of carotid artery stenosis or other artery disease. Warning signs: Sudden numbness or weakness of the face, arm or leg; especially on one side of the body, sudden confusion, trouble speaking or understanding, sudden trouble seeing in one or both eyes, sudden trouble walking, dizziness, loss of balance or coordination, sudden severe headache with no cause. Call 911 or go to the Emergency Room. CONGESTIVE HEART FAILURE: If you have been diagnosed with Congestive Heart Failure (CHF) and your symptoms return, make an appointment with your physician Weigh yourself daily. Notify your physician if you have a weight gain of two or more pounds in one day or five or more pounds in one week. If you experience any difficulty breathing, please call 911 BLEEDING: Although the risk of bleeding is minimal, it can happen. If you have any bleeding from the site, apply firm pressure above the puncture site for 10-15 minutes. If the bleeding does not stop, continue manual pressure and call 911 Contact your physician if: You develop a fever greater than 101 degrees Fahrenheit Your site becomes reddened or has any drainage You have an increase in pain or burning at the site or if a large knot forms at the site. If you experience chest pain, shortness of breath, dizziness, or extreme tiredness, stop the activity and rest. Please notify your physicians office if you experience any of these symptoms and they are not relieved by rest please call 911! Referrals: Pattie Bloom CNP [Primary Care Provider] - (web request 08/12/16)
[2016-08-12] MEDS ORDERED: Insulin LISPRO 300 UNITS/3 ML VIAL SQ SCH (21:30)
[2016-08-13] MEDS: *HR* Heparin 5,000 UNIT/ML VIAL SQ SCH ×2 (05:47→16:51)
[2016-08-13] MEDS: Insulin LISPRO 300 UNITS/3 ML VIAL SQ SCH ×4 (08:18→20:54)
[2016-08-13] MEDS: Isosorbide MONOnitrate (24 HR) 60 MG TAB.ER.24H PO SCH (08:19)
[2016-08-13] MEDS: Aspirin 81 MG TAB.CHEW PO SCH (08:20)
[2016-08-13] MEDS: amLODIPine 5 MG TABLET PO SCH (08:20)
[2016-08-13] MEDS: *HR* Ticagrelor 90 MG TABLET PO SCH ×2 (08:20→20:54)
[2016-08-13] MEDS: Furosemide 20 MG TABLET PO SCH (08:20)
--- NOTE | 2016-08-13 09:12 | Cardiology Progress Note ---
Date of Encounter: 08/13/16 Time of Encounter: 08:40 Assessment and Plan (1) ST elevation myocardial infarction (STEMI) of inferior wall Current Visit: Yes Status: Acute [facility] 08/07/16-multivessel CAD--unclear if STONE was attached only to diag and also LAD. SVG-OM occluded and [place] lesion subtotal or total occlusion. Prox RCA 100 % occluded. SVG acutely occluded. Attempt made of PCI SVG-RCA. Massive clot burden, temporary pacemaker placed prior to thrombectomy--since removed. BMS deployed to prox SVG. No reflow. Pt was told no further intervention could be done. He requested transfer for a second opinion. Initial troponin >50 at [facility]; now has downtrended to 27.39. Cath films reviewed with physical therapy supervisor, Dr. Margareth Rubalcava. She agrees that no further intervention can be done at this time or at our facility. 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 Has been chest pain free overnight, continue Imdur 120 mg daily. Reports fatigue, dyspnea with minimal activity; this is likely related to his infarct. CXR yesterday demonstrated stable chest without acute process. Continue DAPT (ASA and Brilinta). Continue statin and betablocker (at reduced dose). Right femoral access site healing well. Moderate amount of ecchymosis. No hematoma or bleeding. Limited echo resulted-- EF 55%, mild segmental LV systolic dysfunction--basal inferior wall hypokinesis. Cardiology will sign-off, please call with questions. Follow-up with Dr. Boyd in 5-7 days, will coordinate appt with office. (2) MICH (obstructive sleep apnea) Current Visit: Yes Status: Acute High suspicion of untreated MICH--multiple family members including have reportedly told patient he needs a sleep study due: snoring and apnea. Telemetry reviewed; episodes of sinus pauses during nocturnal hours, longest 6.4 seconds over the weekend. Confirmed that patient was sleeping. Denies symptoms including dizziness, syncope, or pre-syncopal symptoms. Reviewed strips with Dr. Stanislav Rubalcava--recommend treatment of underlying MICH with CPAP/sleep study. Patient wore CPAP last night, there we no pauses noted per telemetry review; as suspected, nocturnal pauses are secondary to underlying MICH. Pulmonology consulted for sleep study arrangements and follow-up. (3) CKD (chronic kidney disease) stage 3, GFR 30-59 ml/min Current Visit: Yes Status: Chronic Renal function stable, baseline 1.6-1.8. (4) Hypertension Current Visit: Yes Status: Chronic Control improved with addition of Norvasc. May need to increase coreg as outpatient. Defer further inpatient mgmt to Hospitalist service. Qualifiers: Hypertension type: essential hypertension Qualified Code(s): I10 - Essential (primary) hypertension (5) CAD (coronary artery disease) Current Visit: Yes Status: Chronic See plan under STEMI. ASA, Brilinta, Statin, restart BB and initiate nitrate therapy. Qualifiers: Coronary Disease-Associated Artery/Lesion type: bypass graft [place] vs. transplanted heart: [place] heart Associated angina: without angina Qualified Code(s): I25.810 - Atherosclerosis of coronary artery bypass graft(s) without angina pectoris Discussion w patient/family: The assessment and plan as outlined above was discussed with the patient and/or family members who expressed understanding and agreement. All questions were answered. Thank you for involving us in the care of your patient. Please call with any questions. The patient was discussed and reviewed with Dr. Lei who agrees with plan as stated above. Cardiology will sign-off, please call with questions. Subjective Principal diagnosis: STEMI Interval history: Initially presented to [facility] as [facility] on 08/07/16--PCI attempt was unsuccessful. He requested transfer to [facility] for second opinion. Stepped out of ICU on 08/10/16. Has been chest pain free overnight, denies recurrent pain or discomfort. Denies dizziness, syncope, palpitations, or shortness of breath. Objective Vital Signs, Last 4 Hours Temp Pulse Resp BP Pulse Ox 08/13/16 08:28 98.1 F 79 18 147/102 95 General: Conversant, No Apparent Distress HEENT: Atraumatic, Normocephaly, Mucus Membranes Moist Cardiac: Reg Rate and Rhythm, Normal S1 and S2 Lungs: Normal Breath Sounds Neuro: Alert and responsive Abdomen: Soft Skin: No rashes noted on visualized skin Musculoskeletal: No Chest Wall Tenderness Extremities: No Edema, Normal Pulses Results 08/10/16 01:30 08/12/16 07:57 Active Medications Acetaminophen (Tylenol) 650 mg PO Q6HR PRN PRN Reason: fever GREATER than 101.2 F Stop: 02/08/17 21:46 Last Admin: 08/11/16 20:04 Dose: 650 mg Amlodipine Besylate (Norvasc) 5 mg PO DAILY ELIANA PRN Reason: Protocol Stop: 02/10/17 14:31 Last Admin: 08/13/16 08:20 Dose: 5 mg Aspirin (Aspirin) 81 mg PO DAILY ELIANA Stop: 02/09/17 09:01 Last Admin: 08/13/16 08:20 Dose: 81 mg Atorvastatin Calcium (Lipitor) 40 mg PO HS [facility] Stop: 02/10/17 21:01 Last Admin: 08/12/16 21:11 Dose: 40 mg Carvedilol (Coreg) 3.125 mg PO BIDWM ELIANA PRN Reason: Protocol Stop: 02/09/17 11:19 Last Admin: 08/13/16 08:20 Dose: 3.125 mg Dextrose/Water (Dextrose 50% (Syg)) 25 ml IVP AD PRN PRN Reason: Hypoglycemia Stop: 02/08/17 22:55 Furosemide (Lasix) 20 mg PO DAILY PRN PRN Reason: Edema Stop: 02/10/17 10:56 Last Admin: 08/11/16 11:16 Dose: 20 mg Furosemide (Lasix) 20 mg PO DAILY [facility] Stop: 02/11/17 09:01 Last Admin: 08/13/16 08:20 Dose: 20 mg Glucagon (Glucagen) 1 mg IM ONCE PRN PRN Reason: Hypoglycemia Stop: 02/08/17 22:55 Glucose (Gluctose) 15 gm PO ONCE PRN PRN Reason: Hypoglycemia Stop: 02/08/17 22:55 Glucose (Gluctose) 30 gm PO ONCE PRN PRN Reason: Hypoglycemia Stop: 02/08/17 22:55 Heparin Sodium (Porcine) (Heparin) 5,000 unit SQ Q12HCO [facility] Stop: 02/09/17 18:01 Last Admin: 08/13/16 05:47 Dose: 5,000 unit Dextrose (Dextrose 5%) 1,000 mls @ 100 mls/hr IV CONT PRN PRN Reason: HYPOGLYCEMIA Stop: 02/08/17 22:55 Insulin Human Lispro (Humalog) 0 units SQ HS ELIANA PRN Reason: Protocol Stop: 02/11/17 21:31 Last Admin: 08/12/16 21:45 Dose: 6 units Insulin Human Lispro (Humalog) 0 units SQ TIDAC ELIANA PRN Reason: Protocol Stop: 02/12/17 07:31 Last Admin: 08/13/16 08:18 Dose: 6 units Isosorbide Mononitrate (Imdur) 120 mg PO DAILY [facility] Stop: 02/12/17 09:01 Last Admin: 08/13/16 08:19 Dose: 120 mg Morphine Sulfate (Morphine Sulfate) 2 mg IVP Q2H PRN PRN Reason: Chest Pain Stop: 02/08/17 21:46 Naloxone HCl (Narcan) 0.4 mg IVP Q2MIN PRN PRN Reason: Opioid Reversal Stop: 02/08/17 21:46 Ondansetron HCl (Zofran) 4 mg IVP Q6HR PRN; Protocol PRN Reason: Nausea And Vomiting Stop: 02/08/17 21:46 Ticagrelor (Brilinta) 90 mg PO BID [facility] Stop: 02/09/17 09:01 Last Admin: 08/13/16 08:20 Dose: 90 mg - Imaging and Cardiology Echo: report reviewed Cardiac cath: report reviewed Other Results: Telemetry review: avg HR=75 SR. No significant pause or event noted. - EKG Interpretation EKG results cardiology: personally reviewed - VTE Reasons for not Prescribing Prophylaxis: Not indicated-Anticoagulated or INR therapeutic Consult Discharge Plan - Plan Additional Instructions: RISK FACTORS: STOP SMOKING: If you smoke, STOP. Smoking or tobacco use significantly increases your risk of heart disease because nicotine causes the arteries to narrow or constrict. It also causes fats to stick to the artery. Your chances of having a heart attack are greatly increased if you continue to smoke. For more information, call the education line for smoking cessation 0-775-OHZQZSA EAT A LOW FAT/CHOLESTEROL/SODIUM DIET: This diet may help reduce your chances of having a heart attack. LIFTING: Avoid lifting anything more than 10 pounds for 5-7 days Prior to straining, laughing, sneezing and/or coughing, apply manual pressure directly over insertion site. ACTIVITY: You may walk or climb stairs as tolerated You can resume sexual activity as tolerated In general, you are encouraged to engage in a minimum of 30 minutes or more of moderate intensity physical activity, such as brisk walking, daily or at least 3 -4 times weekly BATHING Do not submerge the site into water (bath tub, hot tub, swimming pool) for 1 week. This can be a source for infection into the blood stream. You may shower after 24 hours SITE CARE: After 24 hours, you may remove the dressing and leave the site open to air. Keep the site clean and dry. Clean gently and pat dry. You can expect bruising and tenderness that gradually resolve within a week or two. Return to work as instructed per your physician Resume driving as instructed per physician Keep all scheduled follow up appointments Resume medications as instructed IMPORTANT: If prescribed a Platelet Aggregation Inhibitor such as, Plavix, Brilinta or Effient: Duration of therapy is minimum one year These medications are often used in combination with Aspirin in prevention of future heart attacks Never discontinue unless consult with your Hydrometeorological Technician STROKE (CVA) Risk factors for a stroke are: Age, cigarette smoking, diabetes, excessive alcohol consumption, family history, high blood pressure, overweight, physical inactivity, prior stroke, heart attack, diagnosis of carotid artery stenosis or other artery disease. Warning signs: Sudden numbness or weakness of the face, arm or leg; especially on one side of the body, sudden confusion, trouble speaking or understanding, sudden trouble seeing in one or both eyes, sudden trouble walking, dizziness, loss of balance or coordination, sudden severe headache with no cause. Call 911 or go to the Emergency Room. CONGESTIVE HEART FAILURE: If you have been diagnosed with Congestive Heart Failure (CHF) and your symptoms return, make an appointment with your physician Weigh yourself daily. Notify your physician if you have a weight gain of two or more pounds in one day or five or more pounds in one week. If you experience any difficulty breathing, please call 911 BLEEDING: Although the risk of bleeding is minimal, it can happen. If you have any bleeding from the site, apply firm pressure above the puncture site for 10-15 minutes. If the bleeding does not stop, continue manual pressure and call 911 Contact your physician if: You develop a fever greater than 101 degrees Fahrenheit Your site becomes reddened or has any drainage You have an increase in pain or burning at the site or if a large knot forms at the site. If you experience chest pain, shortness of breath, dizziness, or extreme tiredness, stop the activity and rest. Please notify your physicians office if you experience any of these symptoms and they are not relieved by rest please call 911! Referrals: Pattie Bloom CNP [Primary Care Provider] - (web request 08/12/16)
--- NOTE | 2016-08-13 09:33 | Pulmonology Consult Note ---
Date of Encounter: 08/13/16 Time of Encounter: 08:10 Assessment and Plan (1) MICH (obstructive sleep apnea) Current Visit: Yes Status: Suspected Will arrange CPAP titration for him when he is discharged from the hospital to be done at the same night of discharge. I contacted sleep lab and staff will come to talk to him to give him instructions. Continue BiPAP at night for now (2) COPD (chronic obstructive pulmonary disease) Current Visit: Yes Status: Chronic Patient will need outpatient work up and he will need inhalers, if his PFT consistent with diagnosis of COPD. Qualifiers: COPD type: unspecified COPD Qualified Code(s): J44.9 - Chronic obstructive pulmonary disease, unspecified (3) CAD (coronary artery disease) Current Visit: Yes Status: Chronic Qualifiers: Coronary Disease-Associated Artery/Lesion type: bypass graft [place] vs. transplanted heart: [place] heart Associated angina: without angina Qualified Code(s): I25.810 - Atherosclerosis of coronary artery bypass graft(s) without angina pectoris History of Present Illness Consult date: 08/13/16 Requesting physician: Harriet Curry Reason for consult: obstructive sleep apnea Chief complaint: Chest pain History of present illness: This is a pleasant 60 old male with history of MICH and he is not on treatment, because he was told he needs tonsillectomy and he was admitted to the hospital for inferior wall STEMI. Patient has noticed significant worsening of his breathing without use of PAP at night. The patient has symptoms of excessive daytime sleepiness, snoring, witnessed apnea, and daytime fatigue. He does not want to go home without PAP machine. He denies any chest pain at this time. He denies any significant productive cough or wheezing and denies any hemoptysis. 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 Patient had cardiac workup done with left heart catheterization and stent placement. Patient has history of smoking and he has diagnosis of COPD. Past Med Surg Social Fam HX - Past Medical History Medical history: arthritis, CHF, COPD, coronary artery disease, CVA, hyperlipidemia, hypertension, myocardial infarction, osteoporosis, renal disease , TIA, other Psychiatric history: no psych history, other - Past Surgical History Surgical History: angioplasty/stent, coronary bypass (CABG), sinus surgery, vasectomy - Social History Smoking Status: Former smoker Smokeless Tobacco Status: No Alcohol use: occasionally Drug use: none - Family History Mother Living Status: Hx Family Cardiac Disorders: Yes (aneursym, HTN) Father Living Status: Hx Family Respiratory Disorders: Yes (COPD) Medications and Allergies Albuterol Sulfate [Proair Hfa] 2 puff IH Q4H PRN 07/02/16 [History] Aspirin 81 mg PO DAILY 07/02/16 [History] Atorvastatin [Lipitor] 40 mg PO HS 07/02/16 [History] Budesonide/Formoterol 160/4.5 [Symbicort 160/4.5] 2 puff IH BIDR 07/02/16 [ History] Carvedilol [Coreg] 25 mg PO BID 07/02/16 [History] Clopidogrel [Plavix] 75 mg PO DAILY 07/02/16 [History] Furosemide [Lasix] 20 mg PO DAILY 07/02/16 [History] Losartan [Cozaar] 25 mg PO DAILY 07/02/16 [History] Benzonatate [Tessalon] 200 mg PO TID PRN #15 capsule 07/04/16 [Rx] Fluticasone Propionate Nasal [Flonase] 50 mcg NS BID #1 bottle 07/04/16 [Rx] Allergies cephalexin [From Keflex] Allergy (Verified 06/26/15 04:35) Swelling of Lip/Tongue/Throat Penicillins Allergy (Verified 06/26/15 04:35) Hives lisinopril Adverse Reaction (Verified 07/02/16 16:05) Cough All Systems: A 10-system review of systems was performed and is negative for pertinent findings except as documented above in the HPI. Physical Examination Vital Signs: Vital Signs, Last 4 Hours Temp Pulse Resp BP Pulse Ox 08/13/16 08:28 98.1 F 79 18 147/102 95 General appearance: no acute distress Eyes: nonicteric ENT: oropharynx moist Mallampati (class): 4 Neck: supple Effort: normal Inspection: normal Auscultation: bilateral: clear Percussion: bilateral: not dull Cardiovascular: regular rate and rhythm Gastrointestinal: normoactive bowel sounds, soft Extremities: no cyanosis, edema normal mental status, non-focal exam mood appropriate Results - Laboratory Findings CBC and BMP: 08/10/16 01:30 08/12/16 07:57 ABG ABG pH 7.44 pH Units (7.32-7.45) 08/12/16 04:46 ABG pCO2 34 mmHg (35-45) L 08/12/16 04:46 ABG pO2 77 mmHg (85-104) L 08/12/16 04:46 ABG O2 Saturation 96 % (95-98) 08/12/16 04:46 PT/INR, D-dimer PT 12.3 Seconds (9.4-12.1) H 08/09/16 22:00 Abnormal lab findings: Abnormal lab results RBC 4.02 M/mcL (4.19-5.50) L 08/10/16 01:30 Hgb 12.0 g/dL (12.9-16.9) L 08/10/16 01:30 Hct 35.7 % (37.5-50.1) L 08/10/16 01:30 RDW 15.1 % (11.5-14.5) H 08/10/16 01:30 Plt Count 122 K/mcL (140-400) L 08/10/16 01:30 PT 12.3 Seconds (9.4-12.1) H 08/09/16 22:00 ABG pCO2 34 mmHg (35-45) L 08/12/16 04:46 ABG pO2 77 mmHg (85-104) L 08/12/16 04:46 Creatinine 1.40 mg/dL (0.72-1.25) H 08/12/16 07:57 Est GFR (Non-Af Amer) 52 (> 60) L 08/12/16 07:57 Glucose 148 mg/dL (70-99) H 08/12/16 07:57 POC Glucose 308 (58-89) H 08/12/16 20:18 Hemoglobin A1c 7.9 % (-5.6) H 08/09/16 22:00 Calcium 8.4 mg/dL (8.6-10.8) L 08/12/16 07:57 Troponin I 27.39 ng/mL (0-0.03) H* 08/11/16 06:17 Albumin 2.8 g/dL (3.5-5.0) L 08/12/16 07:57 Globulin 3.9 g/dL (2.4-3.5) H 08/12/16 07:57 Albumin/Globulin Ratio 0.7 (1.1-2.2) L 08/12/16 07:57 - Clinical Findings Intake & Output: Intake & Output 08/12/16 08/13/16 08/13/16 23:59 07:59 15:59 Intake Total 200 / 200 480 / 480 Output Total 820 / 820 Balance -620 / -620 480 / 480 Consult Discharge Plan - Plan Additional Instructions: RISK FACTORS: STOP SMOKING: If you smoke, STOP. Smoking or tobacco use significantly increases your risk of heart disease because nicotine causes the arteries to narrow or constrict. It also causes fats to stick to the artery. Your chances of having a heart attack are greatly increased if you continue to smoke. For more information, call the education line for smoking cessation 6-033-KMENTXU EAT A LOW FAT/CHOLESTEROL/SODIUM DIET: This diet may help reduce your chances of having a heart attack. LIFTING: Avoid lifting anything more than 10 pounds for 5-7 days Prior to straining, laughing, sneezing and/or coughing, apply manual pressure directly over insertion site. ACTIVITY: You may walk or climb stairs as tolerated You can resume sexual activity as tolerated In general, you are encouraged to engage in a minimum of 30 minutes or more of moderate intensity physical activity, such as brisk walking, daily or at least 3 -4 times weekly BATHING Do not submerge the site into water (bath tub, hot tub, swimming pool) for 1 week. This can be a source for infection into the blood stream. You may shower after 24 hours SITE CARE: After 24 hours, you may remove the dressing and leave the site open to air. Keep the site clean and dry. Clean gently and pat dry. You can expect bruising and tenderness that gradually resolve within a week or two. Return to work as instructed per your physician Resume driving as instructed per physician Keep all scheduled follow up appointments Resume medications as instructed IMPORTANT: If prescribed a Platelet Aggregation Inhibitor such as, Plavix, Brilinta or Effient: Duration of therapy is minimum one year These medications are often used in combination with Aspirin in prevention of future heart attacks Never discontinue unless consult with your [employer] STROKE (CVA) Risk factors for a stroke are: Age, cigarette smoking, diabetes, excessive alcohol consumption, family history, high blood pressure, overweight, physical inactivity, prior stroke, heart attack, diagnosis of carotid artery stenosis or other artery disease. Warning signs: Sudden numbness or weakness of the face, arm or leg; especially on one side of the body, sudden confusion, trouble speaking or understanding, sudden trouble seeing in one or both eyes, sudden trouble walking, dizziness, loss of balance or coordination, sudden severe headache with no cause. Call 911 or go to the Emergency Room. CONGESTIVE HEART FAILURE: If you have been diagnosed with Congestive Heart Failure (CHF) and your symptoms return, make an appointment with your physician Weigh yourself daily. Notify your physician if you have a weight gain of two or more pounds in one day or five or more pounds in one week. If you experience any difficulty breathing, please call 911 BLEEDING: Although the risk of bleeding is minimal, it can happen. If you have any bleeding from the site, apply firm pressure above the puncture site for 10-15 minutes. If the bleeding does not stop, continue manual pressure and call 911 Contact your physician if: You develop a fever greater than 101 degrees Fahrenheit Your site becomes reddened or has any drainage You have an increase in pain or burning at the site or if a large knot forms at the site. If you experience chest pain, shortness of breath, dizziness, or extreme tiredness, stop the activity and rest. Please notify your physicians office if you experience any of these symptoms and they are not relieved by rest please call 911! Referrals: Pattie Bloom CNP [Primary Care Provider] - (web request 08/12/16)
--- NOTE | 2016-08-13 14:26 | Internal Med Progress Note ---
Date of Encounter: 08/13/16 Time of Encounter: 14:26 - Assessment and plan (1) MICH (obstructive sleep apnea) Current Visit: Yes Status: Suspected Assessment and plan: Patient likely has OHS/MICH given his apneic spells during sleep along with 6-7 sec sinus pauses on Telemetry; has been on CPAP overnight and did well. Case d/ w Sleep medicine and sleep study cannot be done as an inpatient; arrangements made to get SLeep study done tomorrow night; plan to discharge patient in am; continue supplemental O2 and nocturnal CPAP as needed; (2) Bradycardia Current Visit: Yes Status: Resolved Assessment and plan: Resolved now. Telemetry monitoring shows 6-7sec pauses, associated with symptoms of shortness of breath and PND at night, during sleep; Cardiology f/up noted; recommend evaluation for sleep apnea; f/up chest XRay; d/w ICU attending , recommend to d/w , who may arrange for transient CPAP for patient prior to formal sleep studies as outpatient; will start CPAP tonight; continue continuous supplemental O2; continue Telemetry; (3) ST elevation myocardial infarction (STEMI) of inferior wall Current Visit: Yes Status: Acute Assessment and plan: EKG shows ST elevation in inferior leads. Serum troponin currently trending down. Continue telemetry monitoring. Continue aspirin, Brilinta, statin and low-dose beta mary, nitrate; started Norvasc for appropriate BP control. Cardiology signed off at this time; patient to f/up with outpatient Cardiology; Attempts to place a bare metal stent to SVG, at an outside facility, showed no reflow, no further intervention could be initiated and patient was transferred here for a second opinion. (4) CAD (coronary artery disease) Current Visit: Yes Status: Chronic Assessment and plan: Continue aspirin, Brilinta, beta mary, nitrates and statin, as above. Outpatient cardiology follow-up. Qualifiers: Coronary Disease-Associated Artery/Lesion type: bypass graft [place] vs. transplanted heart: [place] heart Associated angina: without angina Qualified Code(s): I25.810 - Atherosclerosis of coronary artery bypass graft(s) without angina pectoris (5) Diastolic CHF Current Visit: Yes Status: Chronic Qualifiers: Congestive heart failure chronicity: chronic Qualified Code(s): I50.32 - Chronic diastolic (congestive) heart failure (6) Obesity (BMI 30-39.9) Current Visit: Yes Status: Chronic (7) COPD (chronic obstructive pulmonary disease) Current Visit: Yes Status: Chronic Qualifiers: COPD type: unspecified COPD Qualified Code(s): J44.9 - Chronic obstructive pulmonary disease, unspecified (8) CKD (chronic kidney disease) stage 3, GFR 30-59 ml/min Current Visit: Yes Status: Chronic Assessment and plan: Serum creatinine noted to be improving back to baseline. Continue to monitor and avoid new nephrotoxic agents. (9) Hypertension Current Visit: Yes Status: Chronic Assessment and plan: Started Norvasc, continue beta-mary and nitrate; BP fairly controlled; Qualifiers: Hypertension type: essential hypertension Qualified Code(s): I10 - Essential (primary) hypertension - Subjective Interval history: Improved chest pain and abdominal muscle cramps; persistent exertional dyspnea but feels better; slept well last night, on CPAP; - Constitutional Vitals: Temp Pulse Resp BP Pulse Ox 97.5 F L 71 24 100/59 96 08/13/16 11:39 08/13/16 11:39 08/13/16 11:39 08/13/16 11:39 08/13/16 11:39 General appearance: Present: cooperative, A&O X 3, answers questions appropriately - Respiratory Respiratory exam: Present: CTAB. Absent: accessory muscle use, rales, rhonchi, wheezes - Cardiovascular Cardiovascular exam: Present: RRR, +S1, +S2. Absent: diastolic murmur, gallop, rubs, systolic murmur - GI/Abdominal GI/Abdominal exam: Present: normal bowel sounds, soft, no peritoneal signs. Absent: distended, tenderness Internal Medicine: Result - Labs CBC & Chem 7: 08/10/16 01:30 08/12/16 07:57 - ABG Interpretation ABG results: ABG ABG pH 7.44 pH Units (7.32-7.45) 08/12/16 04:46 ABG pCO2 34 mmHg (35-45) L 08/12/16 04:46 ABG pO2 77 mmHg (85-104) L 08/12/16 04:46 ABG O2 Saturation 96 % (95-98) 08/12/16 04:46 PT/INR, D-dimer PT 12.3 Seconds (9.4-12.1) H 08/09/16 22:00 - Impressions Impressions Chest X-Ray 08/12/16 11:40 IMPRESSION: Stable chest. No acute pulmonary process. D/ / 08/12/2016 14:30:56 Alicia Ac MD / victor hugo Interpreting Provider: Alicia Ac MD - VTE Reasons for not Prescribing Prophylaxis: Not indicated-Anticoagulated or INR therapeutic Consult Discharge Plan - Plan Additional Instructions: RISK FACTORS: STOP SMOKING: If you smoke, STOP. Smoking or tobacco use significantly increases your risk of heart disease because nicotine causes the arteries to narrow or constrict. It also causes fats to stick to the artery. Your chances of having a heart attack are greatly increased if you continue to smoke. For more information, call the education line for smoking cessation 3-741-UIOYICY EAT A LOW FAT/CHOLESTEROL/SODIUM DIET: This diet may help reduce your chances of having a heart attack. LIFTING: Avoid lifting anything more than 10 pounds for 5-7 days Prior to straining, laughing, sneezing and/or coughing, apply manual pressure directly over insertion site. ACTIVITY: You may walk or climb stairs as tolerated You can resume sexual activity as tolerated In general, you are encouraged to engage in a minimum of 30 minutes or more of moderate intensity physical activity, such as brisk walking, daily or at least 3 -4 times weekly BATHING Do not submerge the site into water (bath tub, hot tub, swimming pool) for 1 week. This can be a source for infection into the blood stream. You may shower after 24 hours SITE CARE: After 24 hours, you may remove the dressing and leave the site open to air. Keep the site clean and dry. Clean gently and pat dry. You can expect bruising and tenderness that gradually resolve within a week or two. Return to work as instructed per your physician Resume driving as instructed per physician Keep all scheduled follow up appointments Resume medications as instructed IMPORTANT: If prescribed a Platelet Aggregation Inhibitor such as, Plavix, Brilinta or Effient: Duration of therapy is minimum one year These medications are often used in combination with Aspirin in prevention of future heart attacks Never discontinue unless consult with your [employer] STROKE (CVA) Risk factors for a stroke are: Age, cigarette smoking, diabetes, excessive alcohol consumption, family history, high blood pressure, overweight, physical inactivity, prior stroke, heart attack, diagnosis of carotid artery stenosis or other artery disease. Warning signs: Sudden numbness or weakness of the face, arm or leg; especially on one side of the body, sudden confusion, trouble speaking or understanding, sudden trouble seeing in one or both eyes, sudden trouble walking, dizziness, loss of balance or coordination, sudden severe headache with no cause. Call 911 or go to the Emergency Room. CONGESTIVE HEART FAILURE: If you have been diagnosed with Congestive Heart Failure (CHF) and your symptoms return, make an appointment with your physician Weigh yourself daily. Notify your physician if you have a weight gain of two or more pounds in one day or five or more pounds in one week. If you experience any difficulty breathing, please call 911 BLEEDING: Although the risk of bleeding is minimal, it can happen. If you have any bleeding from the site, apply firm pressure above the puncture site for 10-15 minutes. If the bleeding does not stop, continue manual pressure and call 911 Contact your physician if: You develop a fever greater than 101 degrees Fahrenheit Your site becomes reddened or has any drainage You have an increase in pain or burning at the site or if a large knot forms at the site. If you experience chest pain, shortness of breath, dizziness, or extreme tiredness, stop the activity and rest. Please notify your physicians office if you experience any of these symptoms and they are not relieved by rest please call 911! Referrals: Pattie Bloom CNP [Primary Care Provider] - (web request 08/12/16)
[2016-08-13] MEDS ORDERED: Insulin LISPRO 300 UNITS/3 ML VIAL SQ SCH (21:30)
[2016-08-14] MEDS: *HR* Heparin 5,000 UNIT/ML VIAL SQ SCH (05:01)
[2016-08-14] MEDS: Aspirin 81 MG TAB.CHEW PO SCH (07:30)
[2016-08-14] MEDS: amLODIPine 5 MG TABLET PO SCH (07:30)
[2016-08-14] MEDS: Isosorbide MONOnitrate (24 HR) 60 MG TAB.ER.24H PO SCH (07:30)
[2016-08-14] MEDS: Furosemide 20 MG TABLET PO SCH (07:30)
[2016-08-14] MEDS: *HR* Ticagrelor 90 MG TABLET PO SCH (07:30)
[2016-08-14] MEDS: Insulin LISPRO 300 UNITS/3 ML VIAL SQ SCH (07:37)
[2016-08-14 07:46] VITALS: BP 147/94
[2016-08-14] MEDS ORDERED: Fluticasone Propionate Nasal 50 MCG/SPRAY BOTTLE NS SCH (09:00)
[2016-08-14] MEDS ORDERED: Budesonide/Formoterol 160/4.5 MDI IH SCH (10:00)
--- NOTE | 2016-08-14 10:28 | Discharge Summary ---
Date of Encounter: 08/14/16 Time of Encounter: 10:26 - Discharge Diagnosis (1) ST elevation myocardial infarction (STEMI) of inferior wall Priority: Primary Status: Acute (2) CAD (coronary artery disease) Priority: Primary Status: Chronic Qualifiers: Coronary Disease-Associated Artery/Lesion type: bypass graft [place] vs. transplanted heart: [place] heart Associated angina: without angina Qualified Code(s): I25.810 - Atherosclerosis of coronary artery bypass graft(s) without angina pectoris (3) MICH (obstructive sleep apnea) Priority: Secondary Status: Suspected (4) Bradycardia Priority: Secondary Status: Resolved (5) Diastolic CHF Priority: Secondary Status: Chronic Qualifiers: Congestive heart failure chronicity: chronic Qualified Code(s): I50.32 - Chronic diastolic (congestive) heart failure (6) COPD (chronic obstructive pulmonary disease) Priority: Secondary Status: Chronic Qualifiers: COPD type: unspecified COPD Qualified Code(s): J44.9 - Chronic obstructive pulmonary disease, unspecified (7) CKD (chronic kidney disease) stage 3, GFR 30-59 ml/min Priority: Secondary Status: Chronic (8) Hypertension Priority: Secondary Status: Chronic Qualifiers: Hypertension type: essential hypertension Qualified Code(s): I10 - Essential (primary) hypertension - Discharge Medications Prescriptions: Amlodipine [Norvasc] 5 mg PO DAILY #30 tablet Atorvastatin [Lipitor] 40 mg PO HS #30 tablet Carvedilol [Coreg] 3.125 mg PO BIDWM #60 tablet Furosemide [Lasix] 20 mg PO DAILY #30 tablet Isosorbide MONOnitrate (24 HR) [Imdur] 120 mg PO DAILY #30 tab.er.24h Ticagrelor [Brilinta] 90 mg PO BID #60 tablet Home Medications: Albuterol Sulfate [Proair Hfa] 2 puff IH Q4H PRN 07/02/16 [History] Aspirin 81 mg PO DAILY 07/02/16 [History] Atorvastatin [Lipitor] 40 mg PO HS 07/02/16 [History] Budesonide/Formoterol 160/4.5 [Symbicort 160/4.5] 2 puff IH BIDR 07/02/16 [ History] Furosemide [Lasix] 20 mg PO DAILY 07/02/16 [History] Benzonatate [Tessalon] 200 mg PO TID PRN #15 capsule 07/04/16 [Rx] Fluticasone Propionate Nasal [Flonase] 50 mcg NS BID #1 bottle 07/04/16 [Rx] Amlodipine [Norvasc] 5 mg PO DAILY #30 tablet 08/14/16 [Rx] Aspirin 81 mg PO DAILY tab.chew 08/14/16 [Rx] Atorvastatin [Lipitor] 40 mg PO HS #30 tablet 08/14/16 [Rx] Carvedilol [Coreg] 3.125 mg PO BIDWM #60 tablet 08/14/16 [Rx] Furosemide [Lasix] 20 mg PO DAILY #30 tablet 08/14/16 [Rx] Isosorbide MONOnitrate (24 HR) [Imdur] 120 mg PO DAILY #30 tab.er.24h 08/14/16 [ Rx] Ticagrelor [Brilinta] 90 mg PO BID #60 tablet 08/14/16 [Rx] Allergies/Adverse Reactions: Allergies cephalexin [From Keflex] Allergy (Verified 06/26/15 04:35) Swelling of Lip/Tongue/Throat Penicillins Allergy (Verified 06/26/15 04:35) Hives lisinopril Adverse Reaction (Verified 07/02/16 16:05) Cough Date of admission: 08/09/16 20:51 Primary care physician: Pattie Bloom CNP Consults: 08/10/16 04:13 Consult to Cardiology [CONS] Routine Comment: Dr. Boyd accepted from [facility] Consulting Provider: Cardiology [place] Reason for Consult: STEMI Call Completed: Yes 08/10/16 11:17 Consult to Cardiac Rehabilitation-Phase1 [CONS] Routine Comment: Reason for Consult: STEMI Call Completed: Yes 08/11/16 14:12 Consult to Respiratory Therapy [CONS] Stat Reason for Consult: overnight sleep study Call Completed: Yes 08/12/16 15:28 Consult to Staff Development Manager [CONS] Routine Reason for SW Consult: possible CPAP need upon discharge tomorrow afternoon. 08/13/16 08:23 Consult to Pulmonology [CONS] Routine Consulting Provider: Pulm [facility] [place] Reason for Consult: Possible MICH; apneic spells during sleep along with Telemetry pauses Call Completed: Yes Discharging clinician: Fernando Greer Anticipated date of discharge: 08/14/16 - Patient Status Disposition: Home, Self-Care Condition: Good Functional capacity at discharge: independent ambulation Overall status at discharge: patient is progressing back to baseline - Discharge Instructions Instructions: Furosemide (By mouth), Amlodipine (By mouth), Isosorbide Mononitrate (By mouth), Atorvastatin (By mouth), Carvedilol (By mouth), Ticagrelor (By mouth), Heart Failure (DC), Diabetes Mellitus Type 2 in Adults ( DC), Chronic Obstructive Pulmonary Disease (DC) Follow Up With: Pattie Bloom CNP [Primary Care Provider] - (web request 08/12/16) Additional Instructions: RISK FACTORS: STOP SMOKING: If you smoke, STOP. Smoking or tobacco use significantly increases your risk of heart disease because nicotine causes the arteries to narrow or constrict. It also causes fats to stick to the artery. Your chances of having a heart attack are greatly increased if you continue to smoke. For more information, call the education line for smoking cessation 8-455-XHCCFBA EAT A LOW FAT/CHOLESTEROL/SODIUM DIET: This diet may help reduce your chances of having a heart attack. LIFTING: Avoid lifting anything more than 10 pounds for 5-7 days Prior to straining, laughing, sneezing and/or coughing, apply manual pressure directly over insertion site. ACTIVITY: You may walk or climb stairs as tolerated You can resume sexual activity as tolerated In general, you are encouraged to engage in a minimum of 30 minutes or more of moderate intensity physical activity, such as brisk walking, daily or at least 3 -4 times weekly BATHING Do not submerge the site into water (bath tub, hot tub, swimming pool) for 1 week. This can be a source for infection into the blood stream. You may shower after 24 hours SITE CARE: After 24 hours, you may remove the dressing and leave the site open to air. Keep the site clean and dry. Clean gently and pat dry. You can expect bruising and tenderness that gradually resolve within a week or two. Return to work as instructed per your physician Resume driving as instructed per physician Keep all scheduled follow up appointments Resume medications as instructed IMPORTANT: If prescribed a Platelet Aggregation Inhibitor such as, Plavix, Brilinta or Effient: Duration of therapy is minimum one year These medications are often used in combination with Aspirin in prevention of future heart attacks Never discontinue unless consult with your Biochemistry Technician STROKE (CVA) Risk factors for a stroke are: Age, cigarette smoking, diabetes, excessive alcohol consumption, family history, high blood pressure, overweight, physical inactivity, prior stroke, heart attack, diagnosis of carotid artery stenosis or other artery disease. Warning signs: Sudden numbness or weakness of the face, arm or leg; especially on one side of the body, sudden confusion, trouble speaking or understanding, sudden trouble seeing in one or both eyes, sudden trouble walking, dizziness, loss of balance or coordination, sudden severe headache with no cause. Call 911 or go to the Emergency Room. CONGESTIVE HEART FAILURE: If you have been diagnosed with Congestive Heart Failure (CHF) and your symptoms return, make an appointment with your physician Weigh yourself daily. Notify your physician if you have a weight gain of two or more pounds in one day or five or more pounds in one week. If you experience any difficulty breathing, please call 911 BLEEDING: Although the risk of bleeding is minimal, it can happen. If you have any bleeding from the site, apply firm pressure above the puncture site for 10-15 minutes. If the bleeding does not stop, continue manual pressure and call 911 Contact your physician if: You develop a fever greater than 101 degrees Fahrenheit Your site becomes reddened or has any drainage You have an increase in pain or burning at the site or if a large knot forms at the site. If you experience chest pain, shortness of breath, dizziness, or extreme tiredness, stop the activity and rest. Please notify your physicians office if you experience any of these symptoms and they are not relieved by rest please call 911! - Diet and Activity Activity: as per the cardiac rehab Diet: low fat, low cholesterol Hospital course: Mr. Singh is a 60 year old male who was transferred to [place] from [facility] after presenting with a STEMI. He had unsuccessful PCI/stent and was sent for another cardiology opinion. Mr. Singh was admitted to ICU. He was evaluated by cardiology and felt to not be a candidate for another cath. He was kept in ICU as he had issues with his respiratory status. He had bradycardia during the initial event but his resolved (had temp pacing at [facility]). On 08/11 he was noted to have some pauses associated with dyspnea. This was felt most likely due to MICH. He was transferred to telemetry and activity was increased. He overall began to improve and cpap was used at night. He was in need of a full sleep study at discharge. Arrangements were made for an outpatient study to be done on the day of discharge. On 08/14 he felt well. Cardiology was OK with his discharge and outpatient follow up was arranged. At that time he was discharged home in stable condition. - Time Spent with Patient Total time spent providing and/or coordinating discharge services: 42min - Constitutional Vitals: Temp Pulse Resp BP Pulse Ox 97.7 F 81 16 147/94 96 08/14/16 07:44 08/14/16 07:44 08/14/16 07:44 08/14/16 07:44 08/14/16 08:30 General appearance: Present: cooperative, A&O X 3, answers questions appropriately - VTE Reasons for not Prescribing Prophylaxis: Not indicated-Anticoagulated or INR therapeutic
== END 2016-08-14 11:43 | disposition home or self-care (01) | DRG 281 ==
LOC: SUATTDRO 20:51 → ICNU 20:51 → 2ANU 08-10 15:48
PROVIDERS: ADMIT Internal Medicine; ATTEND Internal Medicine

== ENCOUNTER 2018-02-18 01:09 | Inpatient (IN) ==
[2018-02-18] MEDS ORDERED: Aspirin 325 MG TABLET PO ONE (02:11)
[2018-02-18] MEDS ORDERED: Nitroglycerin 0.4 MG TAB.SUBL SL PRN (02:11)
--- NOTE | 2018-02-18 02:11 | Emergency Department Note ---
Disposition Clinical Impression: Elevated troponin Chest pain Qualifiers: Chest pain type: unspecified Qualified Code(s): R07.9 - Chest pain, unspecified Disposition: Admitted As Inpatient Condition: Good Chest Pain HPI - General Chief Complaint: ED Chest Pain Stated Complaint: "Upper Back Pain/SOB" Time Seen by Provider: 02/18/18 01:36 Source: patient Mode of arrival: private vehicle Limitations: no limitations Vital Signs Reviewed: Yes Nursing Notes Reviewed: Yes - History of Present Illness HPI Narrative: 62-year-old male history of CAD, status post CABG in 2012, hypertension, diabetes who presents to the ER with complaints of chest and back pain. Reports symptoms began at 10:30 PM. States similar to this prior symptoms resulting in heart catheterizations and a CABG. Reports pain described as a dullness. He took some Rolaids but that did not help. He had a little bit of pain into his left arm. Reports shortness of breath which is chronic for him. Denies any nausea vomiting diaphoresis or near syncope. No other complaints. Pt complaint: chest pain Onset (ago): hour(s) Duration: constant Onset: during rest Pain Location: substernal Severity: mild Severity scale (1-10): 3 Quality: aching Pain Radiation: back Improves with: nothing Worsens with: nothing Associated symptoms: Reports: dyspnea. Denies: nausea, vomiting, diaphoresis Treatments prior to arrival chest pain: none - Related Data On Oral Contraceptives: No Home Medications Medication Instructions Recorded Confirmed Albuterol Sulfate [Proair Hfa] 2 puff IH Q4H PRN 07/02/16 08/10/16 Aspirin 81 mg PO DAILY 07/02/16 08/10/16 Atorvastatin [Lipitor] 40 mg PO HS 07/02/16 08/10/16 Furosemide [Lasix] 20 mg PO DAILY 07/02/16 08/10/16 Atorvastatin [Lipitor] 40 mg PO DAILY 02/18/18 02/18/18 Carvedilol [Coreg] 3.125 mg PO BID 02/18/18 02/18/18 Fluticasone/Vilanterol [Breo 1 each IH 02/18/18 Ellipta 100-25 Mcg INH] Gabapentin [Neurontin] 600 mg PO TID 02/18/18 02/18/18 Losartan [Cozaar] 25 mg PO BID 02/18/18 02/18/18 Pioglitazone [Actos] 15 mg PO DAILY 02/18/18 02/18/18 Ranolazine [Ranexa] 500 mg PO BID 02/18/18 02/18/18 traZODone [TraZODone] 50 mg PO HS 02/18/18 02/18/18 Previous Rx's Medication Instructions Recorded Benzonatate [Tessalon] 200 mg PO TID PRN #15 capsule 07/04/16 Fluticasone Propionate Nasal 50 mcg NS BID #1 bottle 07/04/16 [Flonase] Aspirin 81 mg PO DAILY tab.chew 08/14/16 Furosemide [Lasix] 20 mg PO DAILY #30 tablet 08/14/16 Isosorbide MONOnitrate (24 HR) 120 mg PO DAILY #30 tab.er.24h 08/14/16 [Imdur] Ticagrelor [Brilinta] 90 mg PO BID #60 tablet 08/14/16 amLODIPine [Norvasc] 5 mg PO DAILY #30 tablet 08/14/16 Allergies Allergy/AdvReac Type Severity Reaction Status Date / Time cephalexin [From Keflex] Allergy Swelling Verified 02/18/18 01:34 of Lip/Tongue/Throat Penicillins Allergy Hives Verified 02/18/18 01:34 lisinopril AdvReac Cough Verified 02/18/18 01:34 All systems ED: reviewed and negative except as stated. Cardiovascular: Reports: chest pain Respiratory: Reports: dyspnea. Denies: cough Gastrointestinal: Denies: abdominal pain, nausea, vomiting Musculoskeletal: Reports: back pain. Denies: neck pain Chest Pain PMH - Past Medical History Medical history: Reports: diabetes, hypertension, myocardial infarction Surgical history: Reports: angioplasty/stent, coronary bypass (CABG), sinus surgery, vasectomy Psychiatric history: Reports: no psych history - Social History Smoking Status: Former smoker Alcohol use: Reports: occasionally Drug use: Reports: none Physical Exam - General Limitations: no limitations General appearance: alert, in no apparent distress - Head Head exam: atraumatic, normocephalic - Eye Eye exam: Present: normal appearance - ENT ENT exam: normal exam - Neck Neck exam: Present: normal inspection - Chest Chest inspection: Present: normal inspection, symmetric chest wall rise - Respiratory Respiratory exam: Present: normal lung sounds bilaterally - Cardiovascular Cardiovascular exam: Present: regular rate, normal rhythm, normal heart sounds - Abdominal Exam Abdominal exam: Present: soft, Non-Tender. Absent: tenderness, distention, rigidity - Extremities Exam Extremities exam: Present: normal inspection, full ROM - Expanded Upper Extremity Exam Shoulder exam: Present: normal inspection, full ROM Arm exam: Present: normal inspection, full ROM Elbow exam: Present: normal inspection, full ROM Forearm/Wrist exam: Present: normal inspection, full ROM Hand exam: Present: normal inspection, full ROM - Expanded Lower Extremity Exam Hip/Pelvis exam: Present: normal inspection, full ROM Upper leg exam: Present: normal inspection, full ROM Knee exam: Present: normal inspection, full ROM Lower leg exam: Present: normal inspection, full ROM, swelling (1+ bilateral lower extremity pitting edema) Ankle exam: Present: normal inspection, full ROM Foot/toe exam: Present: normal inspection, full ROM - Skin Skin exam: Present: warm, dry Course Course Narrative: Patient seen and examined. Vital signs reviewed. Plan for EKG, chest x-ray, labs, aspirin and nitroglycerin. - Reevaluation(s) Reevaluation #1: Discussed results of imaging and labs with the patient. Agreeable with plan. Vital Signs Temperature 97.5 F L 02/18/18 01:32 Pulse Rate 75 02/18/18 01:32 Respiratory Rate 18 02/18/18 01:32 Blood Pressure 120/73 02/18/18 01:32 O2 Sat by Pulse Oximetry 95 02/18/18 01:32 Temperature 97.5 F L 02/18/18 01:32 Pulse Rate 75 02/18/18 03:35 Respiratory Rate 19 02/18/18 03:35 Blood Pressure 108/61 02/18/18 03:35 O2 Sat by Pulse Oximetry 93 02/18/18 03:35 Oxygen Delivery Oxygen Delivery Room Air Chest Pain - MDM Narrative Medical decision making narrative: 62-year-old male presents with chest pain that started yesterday evening. EKG years without ischemic findings. Workup was grossly unremarkable with the exception of a slightly elevated troponin of 0.04. The patient had improvement of his symptoms without intervention. Hemodynamically stable. Admitted to the hospitalist service for chest pain and elevated troponin. - Lab Data Lab results reviewed: Yes I reviewed the patient's lab results. Result diagrams: 02/18/18 01:50 02/18/18 01:50 Lab Results 02/18/18 02/18/18 02/18/18 Range/Units 01:50 01:50 01:50 WBC 8.4 (4.3-11.1) K/mcL RBC 5.03 (4.19-5.50) M/mcL Hgb 15.0 (12.9-16.9) g/dL Hct 44.0 (37.5-50.1) % MCV 87.5 (83.0-100.0) fL MCH 29.8 (28.0-33.3) pg MCHC 34.1 (31.6-35.5) g/dL RDW 14.3 (11.5-14.5) % Plt Count 167 (140-400) K/mcL MPV 10.9 (9.4-12.4) fL Immature Gran % 0.8 (0-4) % Seg Neutrophils % 88.2 % Lymphocytes % 7.5 % Monocytes % 3.4 % Eosinophils % 0.0 % Basophils % 0.1 % Neutrophils # 7.4 (1.6-8.9) K/mcL Lymphocytes # 0.6 (0.6-4.6) K/mcL Monocytes # 0.3 (0.0-1.3) K/mcL Eosinophils # 0.0 (0.0-0.6) K/mcL Basophils # 0.0 (0.0-0.2) K/mcL PT 11.5 (9.4-12.1) Seconds INR 1.0 APTT 31.8 (26.0-36.0) Seconds Sodium 131 L (136-145) mEq/L Potassium 4.5 (3.5-5.1) mEq/L Chloride 100 (98-107) mEq/L Carbon Dioxide 21 L (23-29) mEq/L BUN 26 H (8-23) mg/dL Creatinine 1.64 H (0.70-1.30) mg/dL Est GFR ( Amer) 52 L (> 60) Est GFR (Non-Af Amer) 43 L (> 60) BUN/Creatinine Ratio 16 (6-26) Glucose 461 H (70-105) mg/dL Calculated Osmolality 297 (280-300) Calcium 8.8 (8.6-10.3) mg/dL Troponin I 0.04 H* (< 0.04) ng/mL - Radiology Data Radiology results reviewed: Yes I reviewed the patient's radiology results. Chest X-Ray 02/18/18 01:35 IMPRESSION: No acute cardiopulmonary findings. D/ / Noam Jay MD / Noam Jay MD Interpreting Provider: Noam Jay MD - EKG Data EKG attestation: Yes I reviewed and interpreted this EKG. EKG results narrative: EKG demonstrates sinus rhythm with rate of 78 beats or minute. Prolonged [place] interval of 211 with first-degree AV block. Other intervals normal. Normal R- wave progression. No gross ST elevations or depressions. No acute ischemic findings. Heart Score - Score History: Moderately Suspicious EKG: Normal Age: 45-65 Risk Factors: Equal/Greater than 3 risk factor or history of atherosclerotic disease Troponin: 1-3x normal limit HEART Score Total: 5 S.B.A.R. - S.B.A.R. Situation: Demographics, MOA Background: Presenting Complaint, Relevant PMH, Meds, & Allergies Assessment: Course and respsone to treatment, Exam Concerns, Patient/Family Expectation, Pertinant Lab Results Recommendation: Barrier(s) to disposition, Recommendation based on pending studies, treatments, or consults S.B.A.R. Report Given to: Dr. Awan Attestation Statement - Attestation Attestation: Dr Davidson note: Pt seen in conjunction w/ resident Dr Chau; please see his charting for complete documentation. I spent [id number] time with the patient and I agree with patient's treatment and disposition. Pt pain free in the ER w/o recurent sx; h/ o CAD and bypass; similar sx 7 months ago for which he had a catheterization and another stent placed; no prodromal sx earlier in the day; admitted to hospitalist pain free;
[2018-02-18 02:15] LABS: Basophils % 0.1 %; Immature Granulocytes % 0.8 % (0-4); Lymphocytes # 0.6 K/mcL (0.6-4.6); Lymphocytes % 7.5 %; Mean Corpuscular HGB Conc 34.1 g/dL (31.6-35.5); Mean Corpuscular Hemoglobin 29.8 pg (28.0-33.3); Mean Corpuscular Volume 87.5 fL (83.0-100.0); Mean Platelet Volume 10.9 fL (9.4-12.4); Monocytes # 0.3 K/mcL (0.0-1.3); Monocytes % 3.4 %; Neutrophils # 7.4 K/mcL (1.6-8.9); Platelet Count 167 K/mcL (140-400); Red Blood Count 5.03 M/mcL (4.19-5.50); Red Cell Distribution Width 14.3 % (11.5-14.5); Segmented Neutrophils % 88.2 %
[2018-02-18 02:24] LABS: Calcium 8.8 mg/dL (8.6-10.3); Potassium 4.5 mEq/L (3.5-5.1); Prothrombin Time 11.5 Seconds (9.4-12.1)
[2018-02-18 02:26] LABS: Activated Partial Thrombo Time 31.8 Seconds (26.0-36.0)
[2018-02-18 02:28] LABS: Troponin I 0.04 ng/mL (< 0.04)
[2018-02-18 10:01] LABS: Troponin I 1.73 ng/mL (< 0.04)
[2018-02-18] MEDS ORDERED: *HR* Heparin 5,000 UNIT/ML VIAL IVP ONE (10:40)
[2018-02-18] MEDS ORDERED: *HR* Heparin 5,000 UNIT/ML VIAL IVP PRN (10:40)
[2018-02-18 11:12] LABS: Hematocrit 43.7 % (37.5-50.1); Hemoglobin 14.9 g/dL (12.9-16.9); Mean Corpuscular HGB Conc 34.1 g/dL (31.6-35.5); Mean Corpuscular Hemoglobin 29.6 pg (28.0-33.3); Mean Corpuscular Volume 86.7 fL (83.0-100.0); Mean Platelet Volume 10.1 fL (9.4-12.4); Platelet Count 162 K/mcL (140-400); Red Blood Count 5.04 M/mcL (4.19-5.50); Red Cell Distribution Width 14.3 % (11.5-14.5)
[2018-02-18 11:29] LABS: Prothrombin Time 11.4 Seconds (9.4-12.1)
[2018-02-18] MEDS: Heparin 25,000 UNIT/500 ML D5W 25,000 UNIT/500 ML BAG IVC SCH (12:07)
[2018-02-18 13:51] LABS: Magnesium 2.1 mg/dL (1.6-2.6)
--- NOTE | 2018-02-18 14:10 | Internal Med History&Physical ---
<Prasanna Nguyen - Last Filed: 02/18/18 14:05> Date of Encounter: 02/18/18 Time of Encounter: 10:00 Internal Medicine - H&P: HPI Chief complaint: Chest pain Admitted From: Emergency Dept Plans for Post Hospital Care: Home History of present illness: Mr. Singh is a 62 year old male past medical history of diabetes, hypertension , ID, former smoker, CAD status post CABG 2012 presented to emergency room with chest pain radiating to the left arm and back that started yesterday at 10:30 PM. He reports this episode of chest pain is similar to his ID in 2012. He was last here for similar symptoms in July of this year. He reports chest pain is dull and achy, at rest, substernal. Relieved with nitroglycerin. Antacids did not relief pain. He also had a steroid injection on left foot yesterday for pain. EKG without acute changes compared to his last. Last echo on July 2016 with ejection fraction 55% and hypokinetic basal inferior wall. Denies fever, chills, nausea, vomiting, diaphoresis, syncope. He has chronic shortness of breath. Denies confusion, blurry vision, palpitations. Denies recent illness. No further acute complaints. Past Med Surg Social Fam HX - Past Medical History Medical history: diabetes, hypertension, myocardial infarction Additional medical history: sleep apnea. stage III renal failure Psychiatric history: no psych history - Past Surgical History Surgical History: angioplasty/stent, coronary bypass (CABG), sinus surgery, vasectomy Additional surgical history: uvula removed - Social History Smoking Status: Former smoker Smokeless Tobacco Status: No Alcohol use: occasionally Drug use: none - Family History Mother Living Status: Hx Family Cardiac Disorders: Yes (aneursym, HTN) Father Living Status: Hx Family Respiratory Disorders: Yes (COPD) Internal Medicine - H&P: Meds Albuterol Sulfate [Proair Hfa] 2 puff IH Q4H PRN 07/02/16 [History] Aspirin 81 mg PO DAILY tab.chew 08/14/16 [Rx] Furosemide [Lasix] 20 mg PO DAILY #30 tablet 08/14/16 [Rx] Isosorbide MONOnitrate (24 HR) [Imdur] 120 mg PO DAILY #30 tab.er.24h 08/14/16 [ Rx] Ticagrelor [Brilinta] 90 mg PO BID #60 tablet 08/14/16 [Rx] amLODIPine [Norvasc] 5 mg PO DAILY #30 tablet 08/14/16 [Rx] Atorvastatin [Lipitor] 40 mg PO DAILY 02/18/18 [History] Carvedilol [Coreg] 3.125 mg PO BID 02/18/18 [History] Fluticasone/Vilanterol [Breo Ellipta 100-25 Mcg INH] 1 puff IH DAILY 02/18/18 [ History] Gabapentin [Neurontin] 600 mg PO TID 02/18/18 [History] Losartan [Cozaar] 25 mg PO BID 02/18/18 [History] Pioglitazone [Actos] 15 mg PO DAILY 02/18/18 [History] Ranolazine [Ranexa] 500 mg PO BID 02/18/18 [History] traZODone [TraZODone] 50 mg PO HS 02/18/18 [History] 3 Allergy/AdvReac Type Severity Reaction Status Date / Time cephalexin [From Keflex] Allergy Swelling Verified 02/18/18 01:34 of Lip/Tongue/Throat Penicillins Allergy Hives Verified 02/18/18 01:34 lisinopril AdvReac Cough Verified 02/18/18 01:34 All Systems PM: A 10-system review of systems was performed and is negative for pertinent findings except as documented above in the HPI. - Constitutional Constitutional: as per HPI - EENT Eyes: as per HPI Ears: as per HPI Nose, mouth and throat: as per HPI - Cardiovascular Cardiovascular ROS IM: as per HPI - Respiratory Respiratory: as per HPI - Gastrointestinal Gastrointestinal: as per HPI - Genitourinary Genitourinary ROS male: as per HPI - Musculoskeletal Musculoskeletal ROS IM: as per HPI - Integumentary Integumentary IM: as per HPI - Neurological Neurological ROS: as per HPI - Psychiatric Psychiatric: as per HPI - Constitutional Vitals: Temp Pulse Resp BP Pulse Ox 97.4 F L 71 17 142/89 95 02/18/18 11:30 02/18/18 11:30 02/18/18 11:30 02/18/18 11:30 02/18/18 11:30 General appearance: Present: no acute distress, answers questions appropriately Exam: NAD - Head Head exam: Present: atraumatic, normal inspection - Eye Eye exam: Present: EOMI, PERRL - Neck Neck exam general surgery: Present: full ROM - Respiratory Respiratory exam: Present: CTAB - Cardiovascular Cardiovascular exam: Present: RRR, +S1, +S2 - GI/Abdominal GI/Abdominal exam: Present: normal bowel sounds, soft. Absent: guarding, tenderness - Extremities Exam Extremities exam: Present: warm, radial pulses palpable and symmetrical - Neurological Exam Neurological exam: Present: alert, CN II-XII intact, oriented X3 - Psychiatric Psychiatric exam: Present: normal affect, normal mood Internal Med - H&P Results - Labs CBC & Chem 7: 02/18/18 10:52 02/18/18 01:50 Labs: Short CBC 02/18/18 Range/Units 10:52 WBC 9.8 (4.3-11.1) K/mcL Hgb 14.9 (12.9-16.9) g/dL Hct 43.7 (37.5-50.1) % Plt Count 162 (140-400) K/mcL Cardiac Enzymes 02/18/18 Range/Units 09:22 Troponin I 1.73 H* (< 0.04) ng/mL - Assessment and plan (1) NSTEMI (non-ST elevated myocardial infarction) Current Visit: Yes Status: Acute Assessment and plan: Troponin trending up 0.04 -> 1.73. Will continue trending. EKG demonstrates prior ID without significant acute changes. Nitroglycerin relieves CP. JOHNNA score 5 Heparin drip started. Last echo 2016 with LVEF 55% and hypokinetic basal inferior wall. History of previous MIs requiring CABG with 1 stent in 2012. Repeat Echo pending. Will restart Home medication for CAD for now. Cardiology consulted and recommendations appreciated. OUMOU score 93 (2) Diabetes Current Visit: No Status: Acute Assessment and plan: hyperglycemia due to steroid injection yesterday. Continue with home insulin injection. Continue to monitor. 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 Qualifiers: Hypertension type: essential hypertension Qualified Code(s): I10 - Essential (primary) hypertension - Time Spent With Patient Total time spent is greater than 50% in coordination of care (as documented) at patient's floor/unit and/or counseling patient: Greater than 35 minutes <Deshaun Herrera - Last Filed: 02/18/18 17:21> Date of Encounter: 02/18/18 Internal Medicine - H&P: HPI History of present illness: Mr. Singh is a 62 year old male All Systems PM: A 10-system review of systems was performed and is negative for pertinent findings except as documented above in the HPI. - Constitutional Vitals: Temp Pulse Resp BP Pulse Ox 97.4 F L 64 16 127/77 95 02/18/18 15:10 02/18/18 15:10 02/18/18 15:10 02/18/18 15:10 02/18/18 15:10 Internal Med - H&P Results - Labs CBC & Chem 7: 02/18/18 10:52 02/18/18 01:50 Labs: Short CBC 02/18/18 Range/Units 10:52 WBC 9.8 (4.3-11.1) K/mcL Hgb 14.9 (12.9-16.9) g/dL Hct 43.7 (37.5-50.1) % Plt Count 162 (140-400) K/mcL Cardiac Enzymes 02/18/18 Range/Units 09:22 Troponin I 1.73 H* (< 0.04) ng/mL - Time Spent With Patient Total time spent is greater than 50% in coordination of care (as documented) at patient's floor/unit and/or counseling patient: - Attending Attestation I performed an independent interview and examine this patient. I am in agreement with the findings, assessment, and plan of , internal medicine resident. Patient was seen by cardiology and was proceeding with a cardiac catheterization. Patient remains on a heparin drip as he has ruled in for a non -STEMI. He is currently pain-free. Gen: NAD, AAOx2 Neck supple Lung CTAB Ht RRR Abd Soft, NT Ext no edema
--- NOTE | 2018-02-18 14:55 | Cardiology Consult Note ---
Date of Encounter: 02/18/18 Time of Encounter: 13:30 Assessment and Plan (1) NSTEMI (non-ST elevated myocardial infarction) Current Visit: Yes Status: Acute Per cardiology: -Admitted with chest pain, similar to previous angina. -Troponins 0.04, 1.74. -Denies current chest pain. -ON heparin drip. -On asa, statin, BB, plavix. -Last LHC 07/2016 with severe multivessel CAD, unclear if STONE was attached to diag and also LAD, SVG-OM occluded and [place] lesion subtotal/total occlusion, proximal RCA 100%, SVG acutely occluded. Attempt made at PCI to SVG-RCA. Massive clot burden, BMS deployed to SVG to RCA, no reflow. -Last TTE 07/2016 with LVEF 55%, basal inferior wall hypokinetic. -Continue heparin drip. -PLan for LHC in am. RIsks versus benefits of LHC explained to patient and family, state understanding. NPO after midnight. (2) CAD (coronary artery disease), [place] coronary artery Current Visit: No Status: Chronic Per cardiology: -Known CAD, last LHC as above. Qualifiers: [place] vs. transplanted heart: [place] heart Associated angina: angina presence unspecified Qualified Code(s): I25.10 - Atherosclerotic heart disease of [place] coronary artery without angina pectoris (3) CKD (chronic kidney disease) stage 3, GFR 30-59 ml/min Current Visit: No Status: Chronic Per cardiology: -Known CKD. -Renal function stable. -Management per primary service. Discussion w patient/family: The assessment and plan as outlined above was discussed with the patient and/or family members who expressed understanding and agreement. All questions were answered. Thank you for involving us in the care of your patient. Please call with any questions. Discussed and reviewed with . History of Present Illness Consult date: 02/18/18 Requesting physician: Prasanna Nguyen Consult reason: chest pain, elevated troponin Chief complaint: chest pain History of present illness: Mr. Singh is a 62 year old male with a relevant past medical history of CAD s/ p [place], CABG, PCI, HTN, COPD, CVA, previous tobacco abuse, CKD III, DM who presented to [facility] with complaints of chest pain radiating into back. Patient reports pain started yesterday evening while watching tv. Patient states pain similar to previous angina. Patient denies current chest pain. Patient reports shortness of breath and fatigue are about baseline. Past Med Surg Social Fam HX - Past Medical History Attestation: Yes The following information was validated with the patient. Source: patient, old records reviewed Medical history: coronary artery disease, diabetes, hypertension, myocardial infarction Additional medical history: sleep apnea. stage III renal failure Psychiatric history: no psych history - Past Surgical History Surgical History: angioplasty/stent, coronary bypass (CABG), sinus surgery, vasectomy Additional surgical history: uvula removed - Social History Smoking Status: Former smoker Smokeless Tobacco Status: No Alcohol use: occasionally Drug use: none - Family History Mother Living Status: Hx Family Cardiac Disorders: Yes (aneursym, HTN) Father Living Status: Hx Family Respiratory Disorders: Yes (COPD) Medications and Allergies Albuterol Sulfate [Proair Hfa] 2 puff IH Q4H PRN 07/02/16 [History] Aspirin 81 mg PO DAILY tab.chew 08/14/16 [Rx] Furosemide [Lasix] 20 mg PO DAILY #30 tablet 08/14/16 [Rx] Isosorbide MONOnitrate (24 HR) [Imdur] 120 mg PO DAILY #30 tab.er.24h 08/14/16 [ Rx] Ticagrelor [Brilinta] 90 mg PO BID #60 tablet 08/14/16 [Rx] amLODIPine [Norvasc] 5 mg PO DAILY #30 tablet 08/14/16 [Rx] Atorvastatin [Lipitor] 40 mg PO DAILY 02/18/18 [History] Carvedilol [Coreg] 3.125 mg PO BID 02/18/18 [History] Fluticasone/Vilanterol [Breo Ellipta 100-25 Mcg INH] 1 puff IH DAILY 02/18/18 [ History] Gabapentin [Neurontin] 600 mg PO TID 02/18/18 [History] Losartan [Cozaar] 25 mg PO BID 02/18/18 [History] Pioglitazone [Actos] 15 mg PO DAILY 02/18/18 [History] Ranolazine [Ranexa] 500 mg PO BID 02/18/18 [History] traZODone [TraZODone] 50 mg PO HS 02/18/18 [History] 3 Allergy/AdvReac Type Severity Reaction Status Date / Time cephalexin [From Keflex] Allergy Swelling Verified 02/18/18 01:34 of Lip/Tongue/Throat Penicillins Allergy Hives Verified 02/18/18 01:34 lisinopril AdvReac Cough Verified 02/18/18 01:34 All Systems Review: The remainder of the systems were reviewed and are negative - Cardiovascular Cardiovascular: as per HPI, chest pain at rest Physical Examination Vital Signs, Last 4 Hours Temp Pulse Resp BP Pulse Ox 02/18/18 11:30 97.4 F L 71 17 142/89 95 General: Conversant, No Apparent Distress HEENT: Atraumatic, Normocephaly, Mucus Membranes Moist Neck: No JVD, Normal carotid pulses Cardiac: Reg Rate and Rhythm, Normal S1 and S2, No Murmur Lungs: Normal Breath Sounds, No Wheeze, Rales, Rhonchi Neuro: Alert and responsive, No focal deficits noted Abdomen: Soft, Non-Tender Skin: No rashes noted on visualized skin Musculoskeletal: No Chest Wall Tenderness Extremities: No Clubbing, No Cyanosis, No Edema, Normal Pulses Results 02/18/18 10:52 02/18/18 01:50 Lab Results Impressions Chest X-Ray 02/18/18 01:35 IMPRESSION: No acute cardiopulmonary findings. D/ / Noam Jay MD / Noam Jay MD Interpreting Provider: Noam Jay MD Active Medications Albuterol Sulfate (Albuterol Inhaler) 2 puff IH Q4H PRN PRN Reason: Shortness Of Breath Stop: 08/20/18 14:17 Amlodipine Besylate (Norvasc) 5 mg PO DAILY ELIANA PRN Reason: Protocol Stop: 08/21/18 09:01 Aspirin (Aspirin) 81 mg PO DAILY ELIANA Stop: 08/21/18 09:01 Atorvastatin Calcium (Lipitor) 40 mg PO DAILY [facility] Stop: 08/21/18 09:01 Carvedilol (Coreg) 3.125 mg PO BID ELIANA PRN Reason: Protocol Stop: 08/20/18 21:01 Heparin Sodium (Porcine) (Heparin) 4,000 unit IVP Q6HR PRN PRN Reason: SEE COMMENTS Stop: 08/20/18 10:41 Heparin Sodium (Porcine) (Heparin) 2,000 unit IVP Q6H PRN PRN Reason: SEE COMMENTS Stop: 08/20/18 10:41 Heparin Sodium/Dextrose (Heparin 25,000 Unit/500 Ml D5w) 25,000 unit in 500 mls @ 19.502 mls/hr IVC .Q24H ELIANA; 8.3 UNIT/KG/HR PRN Reason: Protocol Stop: 08/20/18 10:46 Last Admin: 02/18/18 12:07 Dose: 8.3 unit/kg/hr, 19.502 mls/hr Losartan Potassium (Cozaar) 25 mg PO BID ELIANA PRN Reason: Protocol Stop: 08/20/18 21:01 Nitroglycerin (Nitroglycerin) 0.4 mg SL Q5MIN PRN PRN Reason: Chest Pain Stop: 08/20/18 02:12 Last Admin: 02/18/18 02:25 Dose: 0.4 mg Pharmacy Profile Note (Patient Taking Own Medication) 1 each IH DAILY ELIANA Stop: 08/21/18 09:01 Pioglitazone HCl (Actos) 15 mg PO DAILY ELIANA Stop: 08/21/18 09:01 Trazodone HCl (Trazodone) 50 mg PO HS ELIANA Stop: 08/20/18 21:01 Laboratory Tests 08/02/17 01/13/18 02/18/18 09:54 11:31 01:50 Hgb 15.0 Creatinine 1.86 H 1.81 H Troponin I 02/18/18 02/18/18 01:50 09:22 Hgb Creatinine 1.64 H Troponin I 0.04 H* 1.73 H* - Imaging and Cardiology Chest Xray: report reviewed Echo: pending, report reviewed Cardiac cath: pending, report reviewed - EKG Interpretation EKG results cardiology: personally reviewed (ECG with SR, HR 78. First degree block.) Consult Discharge Plan - Plan Referrals: Pattie Bloom, [facility] [Primary Care Provider] - (Requested a follow up appointment in 7-10 days with Pattie Bloom. )
[2018-02-18] MEDS ORDERED: *HR* Dextrose 50 % in Water (Syg) 50 ML SYRINGE IVP PRN (16:14)
[2018-02-18] MEDS ORDERED: D5% in Water 1,000 ML IVC PRN (16:14)
[2018-02-18] MEDS ORDERED: Dextrose Gel 15 GM/37.5 ML TUBE PO PRN ×2 (16:14)
[2018-02-18] MEDS: Insulin LISPRO 300 UNITS/3 ML VIAL SQ SCH ×2 (18:42→20:57)
[2018-02-18] MEDS: traZODone 50 MG TABLET PO SCH (20:56)
[2018-02-19] MEDS: *HR* Heparin 5,000 UNIT/ML VIAL IVP PRN (01:49)
[2018-02-19 08:43] LABS: Basophils # 0.1 K/mcL (0.0-0.2); Basophils % 0.7 %; Eosinophils # 0.2 K/mcL (0.0-0.6); Eosinophils % 2.4 %; Hematocrit 47.4 % (37.5-50.1); Hemoglobin 15.8 g/dL (12.9-16.9); Immature Granulocytes % 0.9 % (0-4); Lymphocytes # 2.1 K/mcL (0.6-4.6); Lymphocytes % 22.8 %; Mean Corpuscular HGB Conc 33.3 g/dL (31.6-35.5); Mean Corpuscular Hemoglobin 29.4 pg (28.0-33.3); Mean Corpuscular Volume 88.3 fL (83.0-100.0); Mean Platelet Volume 10.4 fL (9.4-12.4); Monocytes # 0.5 K/mcL (0.0-1.3); Monocytes % 5.3 %; Neutrophils # 6.4 K/mcL (1.6-8.9); Platelet Count 186 K/mcL (140-400); Red Blood Count 5.37 M/mcL (4.19-5.50); Red Cell Distribution Width 14.4 % (11.5-14.5); Segmented Neutrophils % 67.9 %
[2018-02-19] MEDS: Insulin LISPRO 300 UNITS/3 ML VIAL SQ SCH ×4 (08:57→20:59)
[2018-02-19] MEDS ORDERED: Furosemide 20 MG TABLET PO SCH (09:00)
[2018-02-19] MEDS: *HR* Pioglitazone 15 MG TABLET PO SCH (09:00)
[2018-02-19] MEDS: amLODIPine 5 MG TABLET PO SCH (09:00)
[2018-02-19] MEDS: Aspirin 81 MG TAB.CHEW PO SCH (09:01)
[2018-02-19 09:07] LABS: Potassium 4.1 mEq/L (3.5-5.1)
[2018-02-19] MEDS ORDERED: Nitroglycerin 1,000 MCG/10 ML VIAL IV ONE (15:15)
[2018-02-19] MEDS ORDERED: 0.9 % Sodium Chloride 1,000 ML ONE ×2 (15:15→15:50)
[2018-02-19] MEDS ORDERED: *HR* Heparin 10,000 UNIT/10 ML VIAL ONE (15:15)
[2018-02-19] MEDS ORDERED: Heparin 1,000 UNITS/500 mL 500 ML ONE (15:15)
[2018-02-19] MEDS ORDERED: ISOVUE-370 200 ML INFUS..BTL IV ONE (15:15)
--- NOTE | 2018-02-19 15:35 | Pre-Sedation Evaluation ---
Pre-sedation evaluation - Pre-sedation checklist Date of procedure: 02/19/18 Procedure: Left Heart Cath Recent Vitals: Last Vital Signs Temp 98.0 F 02/19/18 11:23 Pulse 59 02/19/18 11:23 Resp 17 02/19/18 11:23 BP 132/88 02/19/18 11:23 Pulse Ox 95 02/19/18 11:23 H&P (including ROS) documented in medical record: Yes Previous reaction to sedatives/anesthetics: No Dietary Status: NPO after Midnight Dentition: No loose teeth or bridges ASA Classification *see protocol: CLASS II-Mild systemic disease Cardiac Registry (Cardio Only) - Functional Capacity Functional Capacity: >=4 METS with symptoms - Clincal Frailty Scale Clinical Frailty Scale: Managing Well
[2018-02-19] MEDS ORDERED: *HR* FentaNYL (PF) 100 MCG/2 ML VIAL ONE (15:49)
[2018-02-19] MEDS ORDERED: *HR* Midazolam HCl 2 MG/2 ML VIAL ONE (15:49)
--- NOTE | 2018-02-19 15:53 | Internal Med Progress Note ---
Hospitalist Progress Note - Encounter Date of Encounter: 02/19/18 Time of Encounter: 10:00 - Subjective Interval History: CC: Chest pain Mr. Singh is a 62 year old male past medical history of diabetes, hypertension , [place], former smoker, CAD status post CABG 2012 presented to emergency room with chest pain radiating to the left arm and back that started yesterday at 10:30 PM. He reports this episode of chest pain is similar to his SC in 2012. He was last here for similar symptoms in July of this year. He reports chest pain is dull and achy, at rest, substernal. Relieved with nitroglycerin. Antacids did not relief pain. He also had a steroid injection on left foot yesterday for pain. EKG without acute changes compared to his last. Last echo on July 2016 with ejection fraction 55% and hypokinetic basal inferior wall. Denies fever, chills, nausea, vomiting, diaphoresis, syncope. He has chronic shortness of breath. Denies confusion, blurry vision, palpitations. Denies recent illness. No further acute complaints. 02/19: Uneventful night. No chest pain. No shortness of breath. No fevers or chills. No complaints except that he needs his home BiPAP as the machine does not work as well. Other than that mentioned above a 10 point review of systems is negative - Exam Vitals: Temp Pulse Resp BP Pulse Ox 98.0 F 59 17 132/88 95 02/19/18 11:23 02/19/18 11:23 02/19/18 11:23 02/19/18 11:23 02/19/18 11:23 Exam: Gen: NAD, AA)x3 Obese Neck supple OP: moist Lung: CTAB Ht RRR Abd: soft +BS, NT Ext: no edema Neuro: nonfocal Skin: warm and dry - Assessment and Plan (1) Chest pain Current Visit: Yes Status: Acute Assessment and Plan: Chest pain resolved. See below (2) NSTEMI (non-ST elevated myocardial infarction) Current Visit: Yes Status: Acute Assessment and Plan: Management as per cardiology. Left heart catheterization today. (3) CAD (coronary artery disease) Current Visit: No Status: Chronic Assessment and Plan: As above, management per cardiology (4) CKD (chronic kidney disease) stage 3, GFR 30-59 ml/min Current Visit: No Status: Chronic Assessment and Plan: Stable, avoid nephrotoxins as best able (5) MICH (obstructive sleep apnea) Current Visit: No Status: Suspected (6) COPD (chronic obstructive pulmonary disease) Current Visit: No Status: Chronic Assessment and Plan: On CPAP (7) Obesity (BMI 30-39.9) Current Visit: No Status: Chronic DVT Prophylaxis: on hep drip - Time Spent with Patient Total time spent is greater than 50% in coordination of care (as documented) at patient's floor/unit and/or counseling patient: Plan of Care Discussed with: patient Internal Medicine: Result - Labs CBC & Chem 7: 02/19/18 08:20 02/19/18 08:20 Labs: Short CBC 02/19/18 Range/Units 08:20 WBC 9.4 (4.3-11.1) K/mcL Hgb 15.8 (12.9-16.9) g/dL Hct 47.4 (37.5-50.1) % Plt Count 186 (140-400) K/mcL Neutrophils # 6.4 (1.6-8.9) K/mcL BMP 02/19/18 08:20 Sodium 138 Potassium 4.1 Chloride 106 Carbon Dioxide 24 BUN 25 H Creatinine 1.45 H Glucose 172 H Calcium 9.0 Cardiac Enzymes 02/18/18 Range/Units 17:53 Troponin I 1.42 H* (< 0.04) ng/mL - ABG Interpretation ABG results: PT/INR, D-dimer PT 11.4 Seconds (9.4-12.1) 02/18/18 10:52 - Impressions Impressions Echocardiogram Limited Views 02/18/18 09:23 Impressions: Limited Echo, no doppler study. LVEF 60%. Normal LV chamber size, wall thickness and systolic function. Normal right ventricular structure and function. Estimated RA pressure is 5 mmHg. Left Ventricular Wall Motion: Rest Echo Findings All wall segments showed normal motion. Findings: Comments * Limited Echo Study Quality * Technically adequate exam. ECG Findings * Normal sinus rhythm. Left Ventricle * LVEF 60%. * Normal LV chamber size, wall thickness and function. Right Ventricle * Normal right ventricular structure and function. Left Atrium * Normal left atrial size. Right Atrium * Normal right atrial size. Interatrial Septum * Interatrial septum not well evaluated. Aortic Valve * Mildly calcified aortic valve leaflets. Tricuspid Valve * Estimated RA pressure is 5 mmHg. Aorta * Normally sized aortic root. Pericardium * The pericardium appears normal. IVC * Normal IVC dimensions and inspiratory collapse. Consult Discharge Plan - Plan Referrals: Pattie Bloom CNP [Primary Care Provider] - (Requested a follow up appointment in 7-10 days with Pattie Bloom. ) (1) Chest pain Qualifiers: Chest pain type: unspecified Qualified Code(s): R07.9 - Chest pain, unspecified (3) CAD (coronary artery disease) Qualifiers: Coronary Disease-Associated Artery/Lesion type: bypass graft [place] vs. transplanted heart: [place] heart Associated angina: without angina Qualified Code(s): I25.810 - Atherosclerosis of coronary artery bypass graft(s) without angina pectoris (6) COPD (chronic obstructive pulmonary disease) Qualifiers: COPD type: unspecified COPD Qualified Code(s): J44.9 - Chronic obstructive pulmonary disease, unspecified
--- NOTE | 2018-02-19 16:54 | Invasive Diagnostic Lab Proc ---
Name: Nolan Singh Date of Study: 02/19/2018 Date: 1955 Ht: 68.1in Medical Record#: [id number] Age: 62 Wt: 253.53lb Gender: Male BSA: 2.26 Order #: [id number] BMI: 38.42 Physicians Procedure Physician: Pete Goldberg MD Referring MD: Referring MD: Staff Name Position Time In Sites, Denise RT (R) Monitor 03:45 PM Denise Jones RT (R) Scrub 03:45 PM Ivania Rojas RN Rail Car Maintenance Mechanic 03:46 PM Indications Indication Non-Stemi Procedures Performed Procedure L HRT ART/GRFT ANGIO Pre-Procedure Checklist Informed consent is complete signed and on chart. H&P is on chart. ID band is on and ID verified with patient. Patient NPO for procedure The procedure was described for the patient and questions were answered. ECG is on chart. Plan of Care Patient will tolerate the procedure without complications. Adequate level of comfort will be maintained. Hemodynamics will remain stable Patient will recover from procedure without complications. Respiratory function will be maintained. Cardiac rhythm will remain stable. Patient temperature will be maintained. Patient and/or family have verbalized understanding of the procedure. Patient Education Chief Complaint/Reason for Test: Cardiac Cath Developmental Category: Adult (18-64 years) Developmentally Appropriate for Age: Yes Learning Barriers: None Education Needs: Procedure Education Method: Verbal Information Taught: Cardiac Cath Educational Evaluation: Able to repeat information Intravenous Access Time IV Size Location DC'd Fluid/Drip Rate Units RN 01:51 PM 18g 1 /" Patent On Arrival 0.9NaCl 50 ml/hr Ivania Rojas RN Allergies cephalexin Keflex pcn lisinopril Vital Signs Time BP (mmHg) HR (bpm) O2 Sat. RR (bpm) LOC / % 03:47 PM / % 5 = Fully awake and oriented or at pre-proc level 03:47 PM / % 4 = Oriented but drowsy 04:02 PM / % 4 = Oriented but drowsy 03:51 PM 143 / 87 65 95 % 19 03:55 PM 151 / 89 65 95 % 23 04:00 PM 140 / 86 62 93 % 17 04:05 PM 132 / 77 61 95 % 12 04:10 PM 136 / 83 60 96 % 12 04:15 PM 138 / 85 60 96 % 15 04:20 PM 134 / 83 70 96 % 13 04:25 PM 137 / 91 63 96 % 15 Procedural Medications Time Medication Dose Units Method Given By 03:46 PM Oxygen 2 L/min nasal cannula Ivania Rojas RN 04:02 PM Versed 1 mg Intravenous Ivania Rojas RN 04:02 PM Fentanyl 50 mcg Intravenous Ivania Rojas RN 04:05 PM Lidocaine 2% 10 ml Subcutaneous Pete Goldberg MD 04:11 PM Heparin 1000 units Intravenous Ivania Rojas RN ASA Classification: CLASS II- Mild systemic disease (i.e. well-controlled diabetes, hypertension, asthma, cigarette smoking) Stfefany Score Preprocedure Postprocedure Activity 2- Moves 4 extremities sustained head lift Activity 2- Moves 4 extremities sustained head lift Circulation 2- SBP +/= 20 points of pre-anesthetic level Circulation 2- SBP +/= 20 points of pre-anesthetic level Consciousness 2- Awake and alert oriented x 3 Consciousness 2- Awake and alert oriented x 3 O2 Saturation 2- Able to maintain O2 satruation of 92% on room air O2 Saturation 2- Able to maintain O2 satruation of 92% on room air Respiratory 2- Able to deep breathe and cough well Respiratory 2- Able to deep breathe and cough well Total Score 10 Total Score 10 Contrast Agent: Isovue Diagnostic Contrast: 101 ml Total Contrast: 101 ml Fluoro Dose: 90 mGy Procedure Log Time Note Enter By 03:45 PM 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 tsites 03:46 PM Procedure start 15:46 tsites 03:46 PM Hair removed from procedure site in holding area using clippers. Bilateral groin prepped with Chloraprep by Denise Bethea (R), then patient was draped. Skin intact. tsites 03:46 PM Time: 15:46 Oxygen on at 2 L/min per nasal cannula by Ivania Rojas RN tsites 03:46 PM Time: 15:46 Patient comfortable and pain free: Yes tsites 03:47 PM Time: 15:47LOC: 5 = Fully awake and oriented or at pre-proc level tsites 03:47 PM Clinical Presentation: Non-STEMI tsites 03:49 PM CathStat 03:49 PM Vitals capture started with the following parameters, Patient=Adult, Interval=5 min, Initial [place]=652 mmHg, Deflation Rate=3 mmHg, Cuff placed on Right Arm 03:51 PM HR=65 bpm, ITRQ=081/87 mmhg, SpO2=95.0 %, Resp=19 B/min 03:55 PM HR=65 bpm, SXKR=849/89 mmhg, SpO2=95 %, Resp=23 B/min 04:00 PM Recorded ECG: HR=62 Condition=Condition 1 04:00 PM HR=62 bpm, AOIS=848/86 mmhg, SpO2=93.0 %, Resp=17 B/min 04:02 PM Time: 15:47LOC: 4 = Oriented but drowsy tsites 04:02 PM Time: 15:46 Patient comfortable and pain free: Yes tsites 04:02 PM Time: 16:02 Versed 1 mg Intravenous Given by Ivania Rojas RN tsites 04:02 PM Time: 16:02 Fentanyl 50 mcg Intravenous Given by Ivania Rojas RN tsites 04:05 PM Time out performed according to hospital policy tsites 04:05 PM Time: 16:05 10 ml Lidocaine 2% to right groin Subcutaneous Given by Pete Goldberg MD tsites 04:05 PM Micro-Introducer Kit utilized for sheath placement tsites 04:05 PM HR=61 bpm, ITCR=511/77 mmhg, SpO2=95.0 %, Resp=12 B/min 04:05 PM Access obtained by percutaneous puncture. 4Fr 10cm Micro kit sheath placed in right Femoral artery. [id number] tsites 04:05 PM 3 cc of contrast injected tsites 04:06 PM Sheath exchanged for a 6 Fr 11 cm Terumo Cylinder sheath [id number] tsites 04:06 PM 5Fr FR 4 catheter inserted over the wire [facility] tsites 04:06 PM 0.035 145cm Navilyst 3mmJ wire [id number] tsites 04:07 PM RCA angiography performed in multiple views. tsites 04:07 PM Recorded Pressure: Ao, HR=57, Condition=Condition 1 (Aorta) Ao 140/98/118 04:08 PM SVG to the RPDA angio performed in multiple views. tsites 04:08 PM SVG to the 1st OM angio performed in multiple views. tsites 04:09 PM 0.035 260cm Navilyst 3mmJ wire [id number] tsites 04:09 PM Wire removed tsites 04:09 PM Lesion found in Proximal RCA. Pre Stenosis: 100 Pre JOHNNA Flow: tsites 04:09 PM Right Coronary, Right Posterior Descending Arteries with Right Posterolateral and Acute Marginal branches with 100 % stenosis. If graft is supplying this area, 0 % stenosis tsites 04:10 PM HR=60 bpm, OMBR=806/83 mmhg, SpO2=96 %, Resp=12 B/min 04:11 PM Catheter removed tsites 04:11 PM 5Fr IM catheter inserted over the wire [id number] tsites 04:11 PM Time: 16:11 Heparin 1000 units Intravenous Given by Ivania Rojas RN tsites 04:12 PM Wire removed tsites 04:13 PM Left JOHNNA to the LAD angio performed in multiple views. tsites 04:13 PM Recorded Pressure: Ao, HR=63, Condition=Condition 1 (Aorta) Ao 137/101/118 04:14 PM 5Fr FL 4 catheter inserted over the wire [facility] tsites 04:14 PM LCA angiography performed in multiple views. tsites 04:15 PM HR=60 bpm, AVTL=375/85 mmhg, SpO2=96 %, Resp=15 B/min 04:15 PM Recorded Pressure: Ao, HR=62, Condition=Condition 1 (Aorta) Ao 80/41/57 04:17 PM Time: 16:02 Patient comfortable and pain free: Yes tsites 04:17 PM Time: 16:02LOC: 4 = Oriented but drowsy tsites 04:19 PM Recorded Pressure: LV, HR=69, Condition=Condition 1 (Left Ventricle) LV 148/26/34 04:19 PM Recorded Pressure: LV, Ao, HR=70, Condition=Condition 1 (Left Ventricle) LV 152/30/43, (Aorta) Ao 143/61/102 04:20 PM 5Fr Pigtail catheter inserted over the wire DNC tsites 04:20 PM Catheter selectively placed in left ventricle tsites 04:20 PM HR=70 bpm, IRSG=233/83 mmhg, SpO2=96.0 %, Resp=13 B/min 04:20 PM edp measured tsites 04:20 PM Catheter removed tsites 04:23 PM Physician reviewing films tsites 04:23 PM Procedure completed at 16:23 02/19/2018 tsites 04:23 PM Did you address JOHNNA flow and Dominance? Yes tsites 04:24 PM Coronary Dominance: right tsites 04:25 PM HR=63 bpm, VGCL=959/91 mmhg, SpO2=96.0 %, Resp=15 B/min 04:25 PM Sign out completed: Radiation Dose 881 mGy, 90 Gy/cm2 Fluoro Time: 7.0 Isovue 370 - 200ml contrast 101 ml given by Pete Goldberg MD. Complications: NoneCardiac Rehab Consult needed: NoConfirmed administered medications: Yes tsites 04:25 PM Isovue 370 - 200ml,1 Bottle(s) used. tsites 04:26 PM Arterial sheath pulled, Mynx closure device used and was Successful S/N. tsites 04:26 PM Estimated Blood Loss: minimal tsites 04:26 PM Post ECG NSR tsites 04:28 PM Post Blood Pressure 137/91 tsites 04:28 PM 16:28 Post Pulses Bilateral DP & PT 1+ tsites 04:28 PM Information taught Cardiac Cath and Mynx tsites 04:28 PM Education needs Procedure, Plan of Care, and Responsibilities of Patient in Care tsites 04:28 PM Learning barriers :None tsites 04:28 PM Education Methods Verbal tsites 04:28 PM Education evaluation Able to repeat information tsites 04:30 PM Report given to jasvir WOLF Pt taken to 3B Room #39. 16:28 tsites 04:30 PM Site status No bleeding/hematoma - Rt Groin as reported by Denise Jones RT (R) at 16:30 tsites 04:30 PM Opsite applied tsites 04:31 PM Delay to floor No tsites 04:31 PM Patient out of room: 16:31 tsites 04:31 PM Family placed in consult room. tsites 04:35 PM Lesion found in Mid Circumflex. Pre Stenosis: 99 Pre JOHNNA Flow: tsites 04:40 PM Lesion found in Mid LMCA. Pre Stenosis: 100 Pre JOHNNA Flow: tsites 04:43 PM Lesion found in 1st Marginal. Pre Stenosis: 99 Pre JOHNNA Flow: tsites 04:43 PM Mid/Distal Left Anterior Descending Coronary Artery and diagonal branches with 80% stenosis. If graft is supplying this area, 0 % stenosis tsites 04:43 PM Circumflex, Obtuse Marginal, Left Posterior Descending, and Left Posterolateral Coronary Arteries with 99 % stenosis. If graft is supplying this area, 0 % stenosis tsites Complications Complication None Hemodynamics Pressures Site Systolic/A Wave Diastolic/V Wave Mean AO 140 98 118 AO 137 101 118 AO 80 41 57 LV 148 26 34 LV 152 30 43 AO 143 61 102 Post Procedure Information Blood Pressure: 137/91 mmHg Rhythm: NSR Post procedural instructions were given Closure Device Time Device Success/Fail 02/19/2018 4:31:00 PM MynxGrip Successful Site Checks Time Location Status Staff Sheath In? Note 04:30 PM Rt Groin No bleeding/hematoma Denise Jones RT (R) Pulses Time Site Pre-Procedure Post-Procedure Note 02/19/2018 1:51:00 PM Bilateral DP 2+ 02/19/2018 1:51:00 PM Bilateral radial 2+ 4:28:00 PM Bilateral DP & PT 1+ Updated by Denise Bethea RT (R) on 02/19/2018 4:45:07 PM Denise Bethea RT electronically signed on 02/19/2018 4:45:46 PM with status of Final
[2018-02-19] MEDS: Heparin 25,000 UNIT/500 ML D5W 25,000 UNIT/500 ML BAG IVC SCH (17:22)
[2018-02-19] MEDS: Gabapentin 300 MG CAPSULE PO SCH (19:00)
[2018-02-19] MEDS: traZODone 50 MG TABLET PO SCH (20:59)
[2018-02-19] MEDS ORDERED: Gabapentin 300 MG CAPSULE PO SCH (21:00)
[2018-02-20] MEDS: Heparin 25,000 UNIT/500 ML D5W 25,000 UNIT/500 ML BAG IVC SCH (06:50)
[2018-02-20] MEDS: Insulin LISPRO 300 UNITS/3 ML VIAL SQ SCH ×4 (08:45→20:44)
[2018-02-20] MEDS: amLODIPine 5 MG TABLET PO SCH (08:59)
[2018-02-20] MEDS: Aspirin 81 MG TAB.CHEW PO SCH (08:59)
[2018-02-20] MEDS: *HR* Pioglitazone 15 MG TABLET PO SCH (09:00)
[2018-02-20] MEDS: Gabapentin 300 MG CAPSULE PO SCH ×2 (09:00→20:44)
[2018-02-20 09:30] LABS: Basophils # 0.1 K/mcL (0.0-0.2); Basophils % 0.8 %; Eosinophils # 0.2 K/mcL (0.0-0.6); Eosinophils % 2.3 %; Hematocrit 45.6 % (37.5-50.1); Hemoglobin 14.9 g/dL (12.9-16.9); Immature Granulocytes % 0.9 % (0-4); Lymphocytes # 1.8 K/mcL (0.6-4.6); Lymphocytes % 26.7 %; Mean Corpuscular HGB Conc 32.7 g/dL (31.6-35.5); Mean Corpuscular Hemoglobin 29.4 pg (28.0-33.3); Mean Corpuscular Volume 89.9 fL (83.0-100.0); Mean Platelet Volume 10.5 fL (9.4-12.4); Monocytes # 0.5 K/mcL (0.0-1.3); Monocytes % 7.6 %; Neutrophils # 4.1 K/mcL (1.6-8.9); Platelet Count 158 K/mcL (140-400); Red Blood Count 5.07 M/mcL (4.19-5.50); Red Cell Distribution Width 14.8 % (11.5-14.5); Segmented Neutrophils % 61.7 %
[2018-02-20 09:49] LABS: Calcium 9.1 mg/dL (8.6-10.3); Potassium 4.5 mEq/L (3.5-5.1)
[2018-02-20] MEDS ORDERED: Nicotine 21 MG PATCH.TD24 TD SCH (10:15)
--- NOTE | 2018-02-20 10:51 | Internal Med Progress Note ---
<NguyenPrasanna - Last Filed: 02/20/18 13:10> Hospitalist Progress Note - Encounter Date of Encounter: 02/20/18 Time of Encounter: 10:00 - Subjective Interval History: Patient is doing well. States that he has not had another episode of chest pain or SOB. Denies f/c/n/v. Denies diaphoresis. He is tolerating PO intake. Able to ambulate without difficulty. Had LHC yesterday and denies active bleeding. Denies uncontrolled pain. Would like to speak with Dr. Boyd. - Exam Vitals: Temp Pulse Resp BP Pulse Ox 97.0 F L 60 17 117/65 95 02/20/18 07:31 02/20/18 07:31 02/20/18 07:31 02/20/18 07:31 02/20/18 07:31 Exam: Gen: NAD, AA)x3 Obese Neck supple OP: moist Lung: CTAB Ht RRR Abd: soft +BS, NT Ext: no edema Neuro: nonfocal Skin: warm and dry - Assessment and Plan (1) NSTEMI (non-ST elevated myocardial infarction) Current Visit: Yes Status: Acute Assessment and Plan: Trop 0.04 -> 1.73 without EKG changes. s/p LHC day #2 LHC demonstrated severe 3 vessel disease. CABG 1 of 3 patent bypass grafts Per cardiology recommendations, continue with risk factor modification. Continue medical therapy with ASA, Coreg, Heparin, Losartan. Dr. Boyd to see patient today. Pending his recommendations for possible PCI. (3) CAD (coronary artery disease) Current Visit: No Status: Chronic Assessment and Plan: As above, management per cardiology (4) CKD (chronic kidney disease) stage 3, GFR 30-59 ml/min Current Visit: No Status: Chronic Assessment and Plan: Stable, avoid nephrotoxins as best able (5) MICH (obstructive sleep apnea) Current Visit: No Status: Suspected (6) COPD (chronic obstructive pulmonary disease) Current Visit: No Status: Chronic Assessment and Plan: On CPAP (7) Diabetes Current Visit: No Status: Chronic DVT Prophylaxis: SSI (8) Obesity (BMI 30-39.9) Current Visit: No Status: Chronic DVT Prophylaxis: DVT Prophylaxis: on hep drip - Time Spent with Patient Total time spent is greater than 50% in coordination of care (as documented) at patient's floor/unit and/or counseling patient: Greater than 35 minutes Plan of Care Discussed with: patient Internal Medicine: Result - Labs CBC & Chem 7: 02/20/18 09:07 02/20/18 09:07 Labs: Short CBC 02/20/18 Range/Units 09:07 WBC 6.6 (4.3-11.1) K/mcL Hgb 14.9 (12.9-16.9) g/dL Hct 45.6 (37.5-50.1) % Plt Count 158 (140-400) K/mcL Neutrophils # 4.1 (1.6-8.9) K/mcL BMP 02/20/18 09:07 Sodium 135 L Potassium 4.5 Chloride 104 Carbon Dioxide 27 BUN 24 H Creatinine 1.57 H Glucose 158 H Calcium 9.1 - ABG Interpretation ABG results: PT/INR, D-dimer PT 11.4 Seconds (9.4-12.1) 02/18/18 10:52 Consult Discharge Plan - Plan Referrals: Pattie Bloom, [employer] [Primary Care Provider] - (Requested a follow up appointment in 7-10 days with Pattie Bloom. ) <Deshaun Herrera - Last Filed: 02/20/18 14:31> Hospitalist Progress Note - Encounter Date of Encounter: 02/20/18 - Exam Vitals: Temp Pulse Resp BP Pulse Ox 97.6 F 60 17 124/80 97 02/20/18 11:12 02/20/18 11:12 02/20/18 11:12 02/20/18 11:12 02/20/18 11:12 - Assessment and Plan (1) Chest pain Current Visit: Yes Status: Acute (2) NSTEMI (non-ST elevated myocardial infarction) Current Visit: Yes Status: Acute (3) CAD (coronary artery disease) Current Visit: No Status: Chronic (4) CKD (chronic kidney disease) stage 3, GFR 30-59 ml/min Current Visit: No Status: Chronic (5) MICH (obstructive sleep apnea) Current Visit: No Status: Suspected (6) COPD (chronic obstructive pulmonary disease) Current Visit: No Status: Chronic (7) Obesity (BMI 30-39.9) Current Visit: No Status: Chronic - Time Spent with Patient Total time spent is greater than 50% in coordination of care (as documented) at patient's floor/unit and/or counseling patient: Internal Medicine: Result - Labs CBC & Chem 7: 02/20/18 09:07 02/20/18 09:07 Labs: Short CBC 02/20/18 Range/Units 09:07 WBC 6.6 (4.3-11.1) K/mcL Hgb 14.9 (12.9-16.9) g/dL Hct 45.6 (37.5-50.1) % Plt Count 158 (140-400) K/mcL Neutrophils # 4.1 (1.6-8.9) K/mcL BMP 02/20/18 09:07 Sodium 135 L Potassium 4.5 Chloride 104 Carbon Dioxide 27 BUN 24 H Creatinine 1.57 H Glucose 158 H Calcium 9.1 - ABG Interpretation ABG results: PT/INR, D-dimer PT 11.4 Seconds (9.4-12.1) 02/18/18 10:52 - Attending Attestation I performed an independent interview and exam of this pt. i agree with the findings, assessment and plan of Dr Nguyen, Family practice resident. She is currently being considered for staged PCI by cardiology. He remains pain-free at this time. Will await their further recommendations and treatment. Gen: NAD Lung CTAB Ht RRR Abd soft +{bs Ext no edema <Deshaun Herrera - Last Filed: 02/20/18 14:31> (1) Chest pain Qualifiers: Chest pain type: unspecified Qualified Code(s): R07.9 - Chest pain, unspecified (3) CAD (coronary artery disease) Qualifiers: Coronary Disease-Associated Artery/Lesion type: bypass graft [place] vs. transplanted heart: [place] heart Associated angina: without angina Qualified Code(s): I25.810 - Atherosclerosis of coronary artery bypass graft(s) without angina pectoris (6) COPD (chronic obstructive pulmonary disease) Qualifiers: COPD type: unspecified COPD Qualified Code(s): J44.9 - Chronic obstructive pulmonary disease, unspecified
--- NOTE | 2018-02-20 14:06 | Cardiology Progress Note ---
Date of Encounter: 02/20/18 Time of Encounter: 13:30 Assessment and Plan (1) NSTEMI (non-ST elevated myocardial infarction) Current Visit: Yes Status: Acute Per cardiology: -Admitted with chest pain, similar to previous angina. -Troponins 0.04, 1.74. -Denies current chest pain. -ON heparin drip. -On asa, statin, BB, plavix. -Last [facility] 07/2016 with severe multivessel CAD, unclear if STONE was attached to diag and also LAD, SVG-OM occluded and [place] lesion subtotal/total occlusion, proximal RCA 100%, SVG acutely occluded. Attempt made at PCI to SVG-RCA. Massive clot burden, BMS deployed to SVG to RCA, no reflow. -Last [facility] 07/2016 with LVEF 55%, basal inferior wall hypokinetic. -LHC with 80% mid LAD, STONE to LAD patent, 99% distal circumlfex, 99% OM1, SVG to OM occluded. 100% RCA, SVG to PDA occluded. -Right groin access site with mild ecchymosis, no hematoma. -Patient is currently chest pain free. Discussed and reviewed with , can consider staged PCI. -Will make NPO after midnight. (2) CAD (coronary artery disease), [place] coronary artery Current Visit: No Status: Chronic Per cardiology: -Known CAD, last [facility] as above. Qualifiers: [place] vs. transplanted heart: [place] heart Associated angina: angina presence unspecified Qualified Code(s): I25.10 - Atherosclerotic heart disease of [place] coronary artery without angina pectoris (3) CKD (chronic kidney disease) stage 3, GFR 30-59 ml/min Current Visit: No Status: Chronic Per cardiology: -Known CKD. -Renal function stable. -Management per primary service. Discussion w patient/family: The assessment and plan as outlined above was discussed with the patient and/or family members who expressed understanding and agreement. All questions were answered. Thank you for involving us in the care of your patient. Please call with any questions. Discussed and reviewed with and . Subjective Principal diagnosis: NSTEMI Interval history: Patient denies chest pain. Denies issues walking, using right leg. Objective Vital Signs, Last 4 Hours Temp Pulse Resp BP Pulse Ox 02/20/18 11:12 97.6 F 60 17 124/80 97 General: Conversant, No Apparent Distress HEENT: Atraumatic, Normocephaly, Mucus Membranes Moist Neck: No JVD, Normal carotid pulses Cardiac: Reg Rate and Rhythm, Normal S1 and S2, No Murmur Lungs: Normal Breath Sounds, No Wheeze, Rales, Rhonchi Neuro: Alert and responsive, No focal deficits noted Abdomen: Soft, Non-Tender Skin: No rashes noted on visualized skin Musculoskeletal: No Chest Wall Tenderness, Other (Right groin access site with mild ecchymosis, no hematoma. ) Extremities: No Clubbing, No Cyanosis, No Edema, Normal Pulses Results 02/20/18 09:07 02/20/18 09:07 Lab Results Active Medications Albuterol Sulfate (Albuterol Inhaler) 2 puff IH Q4H PRN PRN Reason: Shortness Of Breath Stop: 08/20/18 14:17 Amlodipine Besylate (Norvasc) 5 mg PO DAILY ELIANA PRN Reason: Protocol Stop: 08/21/18 09:01 Last Admin: 02/20/18 08:59 Dose: 5 mg Aspirin (Aspirin) 81 mg PO DAILY ELIANA Stop: 08/21/18 09:01 Last Admin: 02/20/18 08:59 Dose: 81 mg Atorvastatin Calcium (Lipitor) 40 mg PO DAILY ELIANA Stop: 08/21/18 09:01 Last Admin: 02/20/18 08:59 Dose: 40 mg Carvedilol (Coreg) 3.125 mg PO BID ELIANA PRN Reason: Protocol Stop: 08/20/18 21:01 Last Admin: 02/20/18 08:59 Dose: 3.125 mg Dextrose/Water (Dextrose 50% (Syg)) 25 ml IVP AD PRN PRN Reason: Hypoglycemia Stop: 08/20/18 16:15 Gabapentin (Neurontin) 600 mg PO BID [facility] Stop: 08/21/18 18:41 Last Admin: 02/20/18 09:00 Dose: 600 mg Glucagon (Glucagen) 1 mg IM ONCE PRN PRN Reason: Hypoglycemia Stop: 08/20/18 16:15 Glucose (Gluctose) 15 gm PO ONCE PRN PRN Reason: Hypoglycemia Stop: 08/20/18 16:15 Glucose (Gluctose) 30 gm PO ONCE PRN PRN Reason: Hypoglycemia Stop: 08/20/18 16:15 Heparin Sodium (Porcine) (Heparin) 4,000 unit IVP Q6HR PRN PRN Reason: SEE COMMENTS Stop: 08/20/18 10:41 Heparin Sodium (Porcine) (Heparin) 2,000 unit IVP Q6H PRN PRN Reason: SEE COMMENTS Stop: 08/20/18 10:41 Last Admin: 02/19/18 01:49 Dose: 2,000 unit Heparin Sodium/Dextrose (Heparin 25,000 Unit/500 Ml D5w) 25,000 unit in 500 mls @ 19.502 mls/hr IVC .Q24H ELIANA; 8.3 UNIT/KG/HR PRN Reason: Protocol Stop: 08/20/18 10:46 Last Admin: 02/20/18 06:50 Dose: 7.32 unit/kg/hr, 17.2 mls/hr Dextrose (Dextrose 5%) 1,000 mls @ 100 mls/hr IVC .Q10H PRN PRN Reason: HYPOGLYCEMIA Stop: 08/20/18 16:15 Insulin Human Lispro (Humalog) 0 units SQ HS ELIANA PRN Reason: Protocol Stop: 08/20/18 21:01 Last Admin: 02/19/18 20:59 Dose: 4 units Insulin Human Lispro (Humalog) 0 units SQ TIDAC ELIANA PRN Reason: Protocol Stop: 08/20/18 16:31 Last Admin: 02/20/18 11:34 Dose: Not Given Losartan Potassium (Cozaar) 25 mg PO BID ELIANA PRN Reason: Protocol Stop: 08/20/18 21:01 Last Admin: 02/20/18 09:00 Dose: 25 mg Nitroglycerin (Nitroglycerin) 0.4 mg SL Q5MIN PRN PRN Reason: Chest Pain Stop: 08/20/18 02:12 Last Admin: 02/18/18 02:25 Dose: 0.4 mg Pharmacy Profile Note (Patient Taking Own Medication) 1 each IH DAILY ELIANA Stop: 08/21/18 09:01 Last Admin: 02/20/18 10:07 Dose: Not Given Pioglitazone HCl (Actos) 15 mg PO DAILY ELIANA Stop: 08/21/18 09:01 Last Admin: 02/20/18 09:00 Dose: 15 mg Trazodone HCl (Trazodone) 50 mg PO HS ELIANA Stop: 08/20/18 21:01 Last Admin: 02/19/18 20:59 Dose: 50 mg Laboratory Tests 02/19/18 02/20/18 02/20/18 08:20 09:07 09:07 Hgb 14.9 Creatinine 1.45 H 1.57 H - Imaging and Cardiology Chest Xray: report reviewed Echo: report reviewed Cardiac cath: report reviewed - EKG Interpretation EKG results cardiology: other (Telemetry reviewed with average HR previous 12 hours noted to be 60, SR. PVCs and PACs noted.) Consult Discharge Plan - Plan Referrals: Pattie Bloom, CERTIFIED REGISTERED LOCKSMITH [Primary Care Provider] - (Requested a follow up appointment in 7-10 days with Pattie Bloom. )
[2018-02-20] MEDS ORDERED: Acetaminophen 325 MG TABLET PO PRN (18:00)
[2018-02-20] MEDS: traZODone 50 MG TABLET PO SCH (20:44)
[2018-02-21] MEDS: *HR* Heparin 5,000 UNIT/ML VIAL IVP PRN (05:48)
[2018-02-21] MEDS: Insulin LISPRO 300 UNITS/3 ML VIAL SQ SCH ×2 (07:42→11:51)
[2018-02-21 09:33] LABS: Basophils # 0.1 K/mcL (0.0-0.2); Eosinophils # 0.2 K/mcL (0.0-0.6); Eosinophils % 3.5 %; Hematocrit 45.9 % (37.5-50.1); Immature Granulocytes % 1.2 % (0-4); Lymphocytes # 1.7 K/mcL (0.6-4.6); Lymphocytes % 28.4 %; Mean Corpuscular HGB Conc 32.7 g/dL (31.6-35.5); Mean Corpuscular Volume 88.8 fL (83.0-100.0); Mean Platelet Volume 10.4 fL (9.4-12.4); Monocytes # 0.5 K/mcL (0.0-1.3); Monocytes % 8.6 %; Neutrophils # 3.5 K/mcL (1.6-8.9); Platelet Count 138 K/mcL (140-400); Red Blood Count 5.17 M/mcL (4.19-5.50); Red Cell Distribution Width 14.6 % (11.5-14.5); Segmented Neutrophils % 57.3 %
[2018-02-21 09:54] LABS: Calcium 8.8 mg/dL (8.6-10.3); Potassium 4.3 mEq/L (3.5-5.1)
[2018-02-21] MEDS: Gabapentin 300 MG CAPSULE PO SCH (10:22)
[2018-02-21] MEDS: *HR* Pioglitazone 15 MG TABLET PO SCH (10:22)
[2018-02-21] MEDS: Aspirin 81 MG TAB.CHEW PO SCH (10:22)
[2018-02-21] MEDS: amLODIPine 5 MG TABLET PO SCH (10:23)
--- NOTE | 2018-02-21 10:52 | Internal Med Progress Note ---
Hospitalist Progress Note - Encounter Date of Encounter: 02/21/18 - Subjective Interval History: Patient is doing well. CP and SOB improved. Denies f/c/n/v. No acute overnight events. Dr. Goldberg saw him yesterday and recommended staged PCI. Patient opting for second opinion and will be transferring to [place]. He has been NPO since midnight. - Exam Vitals: Temp Pulse Resp BP Pulse Ox 97.3 F L 60 18 145/94 94 02/21/18 07:26 02/21/18 07:26 02/21/18 07:26 02/21/18 07:26 02/21/18 07:26 Exam: Gen: NAD, AA)x3 Obese Neck supple OP: moist Lung: CTAB Ht RRR Abd: soft +BS, NT Ext: no edema Neuro: nonfocal Skin: warm and dry - Assessment and Plan (1) NSTEMI (non-ST elevated myocardial infarction) Current Visit: Yes Status: Acute - Time Spent with Patient Total time spent is greater than 50% in coordination of care (as documented) at patient's floor/unit and/or counseling patient: Internal Medicine: Result - Labs CBC & Chem 7: 02/21/18 09:13 02/21/18 09:13 Labs: Short CBC 02/21/18 Range/Units 09:13 WBC 6.0 (4.3-11.1) K/mcL Hgb 15.0 (12.9-16.9) g/dL Hct 45.9 (37.5-50.1) % Plt Count 138 L (140-400) K/mcL Neutrophils # 3.5 (1.6-8.9) K/mcL BMP 02/21/18 09:13 Sodium 134 L Potassium 4.3 Chloride 107 Carbon Dioxide 27 BUN 22 Creatinine 1.51 H Glucose 146 H Calcium 8.8 - ABG Interpretation ABG results: PT/INR, D-dimer PT 11.4 Seconds (9.4-12.1) 02/18/18 10:52 Consult Discharge Plan - Plan Referrals: Pattie Bloom, P[employer]PERATOR [Primary Care Provider] - (Requested a follow up appointment in 7-10 days with Pattie Bloom. )
--- NOTE | 2018-02-21 10:56 | Discharge Summary ---
<Prasanna Nguyen - Last Filed: 02/21/18 13:40> - NOTES TO OUTPATIENT PROVIDER Notes to Outpatient Provider: Patient was recommended to undergo staged PCI and has opted to obtain second opinion for staged PCI at [place]. Orders not resulted at time of discharge: Pending orders 02/21/18 12:00 Heparin anti-factor XA UFH [COAG] Timed Date of Encounter: 02/21/18 Time of Encounter: 10:30 - Discharge Diagnosis (1) NSTEMI (non-ST elevated myocardial infarction) Priority: Primary Status: Acute (2) Chest pain Priority: Primary Status: Acute Qualifiers: Chest pain type: unspecified Qualified Code(s): R07.9 - Chest pain, unspecified (3) Diabetes Priority: Secondary Status: Acute Qualifiers: Diabetes mellitus type: type 2 Qualified Code(s): E11.9 - Type 2 diabetes mellitus without complications (4) CAD (coronary artery disease) Priority: Secondary Status: Chronic Qualifiers: Coronary Disease-Associated Artery/Lesion type: bypass graft [place] vs. transplanted heart: [place] heart Associated angina: without angina Qualified Code(s): I25.810 - Atherosclerosis of coronary artery bypass graft(s) without angina pectoris (5) CKD (chronic kidney disease) stage 3, GFR 30-59 ml/min Priority: Secondary Status: Chronic (6) COPD (chronic obstructive pulmonary disease) Priority: Secondary Status: Chronic Qualifiers: COPD type: unspecified COPD Qualified Code(s): J44.9 - Chronic obstructive pulmonary disease, unspecified (7) Former heavy cigarette smoker (20-39 per day) Priority: Secondary Status: Chronic (8) Obesity (BMI 30-39.9) Priority: Secondary Status: Chronic (9) S/P CABG x 3 Priority: Secondary Status: Chronic (10) MICH (obstructive sleep apnea) Priority: Secondary Status: Suspected Hospital course: Mr. Singh is a 62 year old male PMHx DM, HTN, ND, former smoker, CAD s/p CABG 2012 without stents presented with CP radiating to the left arm and back for 1 day duration. CP is similar to his last ND in 2012. He is on Brilinta, Losartan , Coreg, Lipitor, ASA at home. EKG was unremarkable, but troponin 0.04 -> 1.7. He was admitted for NSTEMI. Cardiology was consulted and [facility] performed on 2017 demonstrating severe three vessel CAD and 1 of 3 patent bypass grafts. Discussing at length with patient and family members was completed by tree killer and staged PCI was recommended. Patient and family would prefer to be transferred to [place] for second opinion. Disc was made from [facility] and [facility] and transferred. He is to continue his home medications until transfer. Discharge discussed with: patient, family Time spent discussing smoking cessation with patient: 3 to 10 minutes - Time Spent with Patient Total time spent providing and/or coordinating discharge services: Greater than 30 minutes - Discharge Medications Home Medications: Albuterol Sulfate [Proair Hfa] 2 puff IH Q4H PRN 07/02/16 [History] Aspirin 81 mg PO DAILY tab.chew 08/14/16 [Rx] Furosemide [Lasix] 20 mg PO DAILY #30 tablet 08/14/16 [Rx] Isosorbide MONOnitrate (24 HR) [Imdur] 120 mg PO DAILY #30 tab.er.24h 08/14/16 [ Rx] Ticagrelor [Brilinta] 90 mg PO BID #60 tablet 08/14/16 [Rx] amLODIPine [Norvasc] 5 mg PO DAILY #30 tablet 08/14/16 [Rx] Atorvastatin [Lipitor] 40 mg PO DAILY 02/18/18 [History] Carvedilol [Coreg] 3.125 mg PO BID 02/18/18 [History] Fluticasone/Vilanterol [Breo Ellipta 100-25 Mcg INH] 1 puff IH DAILY 02/18/18 [ History] Gabapentin [Neurontin] 600 mg PO TID 02/18/18 [History] Losartan [Cozaar] 25 mg PO BID 02/18/18 [History] Pioglitazone [Actos] 15 mg PO DAILY 02/18/18 [History] Ranolazine [Ranexa] 500 mg PO BID 02/18/18 [History] traZODone [TraZODone] 50 mg PO HS 02/18/18 [History] Allergies/Adverse Reactions: 3 Allergy/AdvReac Type Severity Reaction Status Date / Time cephalexin [From Keflex] Allergy Swelling Verified 02/18/18 01:34 of Lip/Tongue/Throat Penicillins Allergy Hives Verified 02/18/18 01:34 lisinopril AdvReac Cough Verified 02/18/18 01:34 Date of admission: 02/19/18 14:18 Primary care physician: Pattie Bloom CNP Consults: 02/20/18 07:57 Consult to Cardiac Rehabilitation-Phase1 [CONS] Routine Comment: Reason for Consult: NSTEMI Call Completed: No Discharging clinician: Prasanna Nguyen Anticipated date of discharge: 02/21/18 - Constitutional Vitals: Temp Pulse Resp BP Pulse Ox 97.3 F L 60 18 145/94 94 02/21/18 07:26 02/21/18 07:26 02/21/18 07:26 02/21/18 07:26 02/21/18 07:26 General appearance: Present: no acute distress, answers questions appropriately Exam: Gen: NAD, AA)x3 Obese Neck supple OP: moist Lung: CTAB Ht RRR Abd: soft +BS, NT Ext: no edema Neuro: nonfocal Skin: warm and dry - Patient Status Disposition: Transfer Critical Access Hosp Condition: Fair Functional capacity at discharge: independent ambulation Overall status at discharge: patient is back to baseline - Discharge Instructions Follow Up With: Pattie Bloom CNP [Primary Care Provider] - (Requested a follow up appointment in 7-10 days with Pattie Bloom. ) - Diet and Activity Activity: increase activity as tolerated Diet: advance to your usual diet <Deshaun Herrera - Last Filed: 02/21/18 14:06> Date of Encounter: 02/21/18 - Discharge Diagnosis (1) Chest pain Status: Acute Qualifiers: Chest pain type: unspecified Qualified Code(s): R07.9 - Chest pain, unspecified (2) NSTEMI (non-ST elevated myocardial infarction) Status: Acute (3) CAD (coronary artery disease) Status: Chronic Qualifiers: Coronary Disease-Associated Artery/Lesion type: bypass graft [place] vs. transplanted heart: [place] heart Associated angina: without angina Qualified Code(s): I25.810 - Atherosclerosis of coronary artery bypass graft(s) without angina pectoris (4) CKD (chronic kidney disease) stage 3, GFR 30-59 ml/min Status: Chronic (5) MICH (obstructive sleep apnea) Status: Suspected (6) COPD (chronic obstructive pulmonary disease) Status: Chronic Qualifiers: COPD type: unspecified COPD Qualified Code(s): J44.9 - Chronic obstructive pulmonary disease, unspecified (7) Obesity (BMI 30-39.9) Status: Chronic Hospital course: Mr. Singh is a 62 year old male - Time Spent with Patient Total time spent providing and/or coordinating discharge services: Date of admission: 02/19/18 14:18 Primary care physician: Pattie Bloom CNP Consults: 02/20/18 07:57 Consult to Cardiac Rehabilitation-Phase1 [CONS] Routine Comment: Reason for Consult: NSTEMI Call Completed: No - Constitutional Vitals: Temp Pulse Resp BP Pulse Ox 97.4 F L 63 18 133/79 95 02/21/18 11:52 02/21/18 11:52 02/21/18 11:52 02/21/18 11:52 02/21/18 11:52 - Attending Attestation I performed an independent interview and exam of this pt. I agree with th findings, assessment and plan of Dr. Nguyen, family practice resident. I discussed case with cardiology as well. Patient is being transferred for second opinion. Cardiology did make arrangements. Patient is currently pain- free. Stable for discharge. 37 minutes spent in discharge, coordination of care including transfer arrangements.
--- NOTE | 2018-02-21 11:22 | Cardiology Progress Note ---
Date of Encounter: 02/21/18 Time of Encounter: 09:30 Assessment and Plan (1) NSTEMI (non-ST elevated myocardial infarction) Current Visit: Yes Status: Acute Per cardiology: -Admitted with chest pain, similar to previous angina. -Troponins 0.04, 1.74, 1.42. -Denies current chest pain. -ON heparin drip. -On asa, statin, BB, plavix. -Last [facility] 07/2016 with severe multivessel CAD, unclear if STONE was attached to diag and also LAD, SVG-OM occluded and [place] lesion subtotal/total occlusion, proximal RCA 100%, SVG acutely occluded. Attempt made at PCI to SVG-RCA. Massive clot burden, BMS deployed to SVG to RCA, no reflow. -Last [facility] 07/2016 with LVEF 55%, basal inferior wall hypokinetic. -[facility] this admission with 80% mid LAD, STONE to LAD patent, 99% distal circumlfex , 99% OM1, SVG to OM occluded. 100% RCA, SVG to PDA occluded. -Right groin access site with mild ecchymosis, no hematoma. -Discussed at length with patient and family, at this time, they would like to be transferred to [place] for second opinion/PCI. Discussed with hospitalist. Disc made from [facility] and [facility], will place on chart on floor. -Continue current meds, heparin drip. -Will continue to monitor while at [facility]. (2) CAD (coronary artery disease), [place] coronary artery Current Visit: No Status: Chronic Per cardiology: -Known CAD, last [facility] as above. Qualifiers: [place] vs. transplanted heart: [place] heart Associated angina: angina presence unspecified Qualified Code(s): I25.10 - Atherosclerotic heart disease of [place] coronary artery without angina pectoris (3) CKD (chronic kidney disease) stage 3, GFR 30-59 ml/min Current Visit: No Status: Chronic Per cardiology: -Known CKD. -Renal function stable. -Management per primary service. Discussion w patient/family: The assessment and plan as outlined above was discussed with the patient and/or family members who expressed understanding and agreement. All questions were answered. Thank you for involving us in the care of your patient. Please call with any questions. Discussed and reviewed with . Subjective Principal diagnosis: NSTEMI Interval history: Patient sitting in bed, family at bedside. Patient denies chest pain. Denies issues walking, using right leg. Objective Vital Signs, Last 4 Hours Temp Pulse Resp BP Pulse Ox 02/21/18 07:26 97.3 F L 60 18 145/94 94 General: Conversant, No Apparent Distress HEENT: Atraumatic, Normocephaly, Mucus Membranes Moist Neck: No JVD, Normal carotid pulses Cardiac: Reg Rate and Rhythm, Normal S1 and S2, No Murmur Lungs: Normal Breath Sounds, No Wheeze, Rales, Rhonchi Neuro: Alert and responsive, No focal deficits noted Abdomen: Soft, Non-Tender Skin: No rashes noted on visualized skin Musculoskeletal: No Chest Wall Tenderness, Other (Right groin access site with mild ecchymosis, no hematoma. .) Extremities: No Clubbing, No Cyanosis, No Edema, Normal Pulses Results 02/21/18 09:13 02/21/18 09:13 Lab Results Active Medications Acetaminophen (Tylenol) 650 mg PO Q6HR PRN PRN Reason: Pain Stop: 08/22/18 18:01 Last Admin: 02/20/18 18:24 Dose: 650 mg Albuterol Sulfate (Albuterol Inhaler) 2 puff IH Q4H PRN PRN Reason: Shortness Of Breath Stop: 08/20/18 14:17 Amlodipine Besylate (Norvasc) 5 mg PO DAILY ELIANA PRN Reason: Protocol Stop: 08/21/18 09:01 Last Admin: 02/21/18 10:23 Dose: 5 mg Aspirin (Aspirin) 81 mg PO DAILY ELIANA Stop: 08/21/18 09:01 Last Admin: 02/21/18 10:22 Dose: 81 mg Atorvastatin Calcium (Lipitor) 40 mg PO DAILY ELIANA Stop: 08/21/18 09:01 Last Admin: 02/21/18 10:23 Dose: 40 mg Carvedilol (Coreg) 3.125 mg PO BID ELIANA PRN Reason: Protocol Stop: 08/20/18 21:01 Last Admin: 02/21/18 10:22 Dose: 3.125 mg Dextrose/Water (Dextrose 50% (Syg)) 25 ml IVP AD PRN PRN Reason: Hypoglycemia Stop: 08/20/18 16:15 Gabapentin (Neurontin) 600 mg PO BID ELIANA Stop: 08/21/18 18:41 Last Admin: 02/21/18 10:22 Dose: 600 mg Glucagon (Glucagen) 1 mg IM ONCE PRN PRN Reason: Hypoglycemia Stop: 08/20/18 16:15 Glucose (Gluctose) 15 gm PO ONCE PRN PRN Reason: Hypoglycemia Stop: 08/20/18 16:15 Glucose (Gluctose) 30 gm PO ONCE PRN PRN Reason: Hypoglycemia Stop: 08/20/18 16:15 Heparin Sodium (Porcine) (Heparin) 4,000 unit IVP Q6HR PRN PRN Reason: SEE COMMENTS Stop: 08/20/18 10:41 Heparin Sodium (Porcine) (Heparin) 2,000 unit IVP Q6H PRN PRN Reason: SEE COMMENTS Stop: 08/20/18 10:41 Last Admin: 02/21/18 05:48 Dose: 2,000 unit Heparin Sodium/Dextrose (Heparin 25,000 Unit/500 Ml D5w) 25,000 unit in 500 mls @ 19.502 mls/hr IVC .Q24H ELIANA; 8.3 UNIT/KG/HR PRN Reason: Protocol Stop: 08/20/18 10:46 Last Titration: 02/21/18 05:47 Dose: 9.32 unit/kg/hr, 21.898 mls/hr Dextrose (Dextrose 5%) 1,000 mls @ 100 mls/hr IVC .Q10H PRN PRN Reason: HYPOGLYCEMIA Stop: 08/20/18 16:15 Insulin Human Lispro (Humalog) 0 units SQ HS ELIANA PRN Reason: Protocol Stop: 08/20/18 21:01 Last Admin: 02/20/18 20:44 Dose: Not Given Insulin Human Lispro (Humalog) 0 units SQ TIDAC ELIANA PRN Reason: Protocol Stop: 08/20/18 16:31 Last Admin: 02/21/18 07:42 Dose: Not Given Losartan Potassium (Cozaar) 25 mg PO BID ELIANA PRN Reason: Protocol Stop: 08/20/18 21:01 Last Admin: 02/21/18 10:22 Dose: 25 mg Nitroglycerin (Nitroglycerin) 0.4 mg SL Q5MIN PRN PRN Reason: Chest Pain Stop: 08/20/18 02:12 Last Admin: 02/18/18 02:25 Dose: 0.4 mg Pharmacy Profile Note (Patient Taking Own Medication) 1 each IH DAILY ELIANA Stop: 08/21/18 09:01 Last Admin: 02/21/18 10:28 Dose: Not Given Pioglitazone HCl (Actos) 15 mg PO DAILY ELIANA Stop: 08/21/18 09:01 Last Admin: 02/21/18 10:22 Dose: 15 mg Trazodone HCl (Trazodone) 50 mg PO HS ELIANA Stop: 08/20/18 21:01 Last Admin: 02/20/18 20:44 Dose: 50 mg Laboratory Tests 02/20/18 02/21/18 02/21/18 09:07 09:13 09:13 Hgb 15.0 Creatinine 1.57 H 1.51 H - Imaging and Cardiology Chest Xray: report reviewed Echo: report reviewed Cardiac cath: report reviewed - EKG Interpretation EKG results cardiology: other (Telemetry reviewed with average HR previous 12 hours noted to be 64, SR. PACs noted.) Consult Discharge Plan - Plan Referrals: Pattie Bloom, PROJECTION WELDING MACHINE OPERATOR [Primary Care Provider] - (Requested a follow up appointment in 7-10 days with Pattie Bloom. )
[2018-02-21] MEDS: Heparin 25,000 UNIT/500 ML D5W 25,000 UNIT/500 ML BAG IVC SCH (11:24)
[2018-02-21 11:54] VITALS: BP 133/79
--- NOTE | 2018-02-22 12:20 | Electrocardiograph Report ---
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
== END 2018-02-21 12:36 | disposition critical access hospital (66) | DRG 190 ==
LOC: EMEROOARM 01:09 → 3BNU 01:09
PROVIDERS: ADMIT Pediatrics; ATTEND Pediatrics

== ENCOUNTER 2019-08-28 22:38 | Observation (INO) ==
[2019-08-28] MEDS ORDERED: Nitroglycerin 0.4 MG TAB.SUBL SL PRN (22:43)
[2019-08-28] MEDS ORDERED: Aspirin 81 MG TAB.CHEW PO ONE (22:43)
[2019-08-28 23:39] LABS: Basophils % 0.6 %; Eosinophils # 0.1 K/mcL (0.0-0.6); Hematocrit 45.2 % (37.5-50.1); Hemoglobin 14.6 g/dL (12.9-16.9); Immature Granulocytes % 0.2 % (0-4); Lymphocytes % 21.6 %; Mean Corpuscular HGB Conc 32.3 g/dL (31.6-35.5); Mean Corpuscular Hemoglobin 29.3 pg (28.0-33.3); Mean Corpuscular Volume 90.6 fL (83.0-100.0); Mean Platelet Volume 10.7 fL (9.4-12.4); Monocytes # 0.4 K/mcL (0.0-1.3); Monocytes % 8.7 %; Platelet Count 136 K/mcL (140-400); Red Blood Count 4.99 M/mcL (4.19-5.50); Red Cell Distribution Width 13.6 % (11.5-14.5); Segmented Neutrophils % 65.9 %; White Blood Count 4.6 K/mcL (4.3-11.1)
[2019-08-28 23:46] LABS: Activated Partial Thrombo Time 34.1 Seconds (26.0-36.0)
[2019-08-29] LABS: BUN/Creatinine Ratio 15 (6-26); Blood Urea Nitrogen 26 mg/dL (8-23); Calcium 9.2 mg/dL (8.6-10.3); Carbon Dioxide 28 mEq/L (23-29); Chloride 100 mEq/L (98-107); Glucose 259 mg/dL (70-105); Osmolality,Calculated 290 (280-300); Potassium 4.2 mEq/L (3.5-5.1); Sodium 133 mEq/L (136-145); eGFR For African Americans 50 (> 60); eGFR For Non-African Americans 41 (> 60)
[2019-08-29 00:01] LABS: Troponin I < 0.03 ng/mL (< 0.04)
[2019-08-29] MEDS ORDERED: *HR* Promethazine 25 MG/ML VIAL IVP PRN (00:44)
[2019-08-29] MEDS ORDERED: Acetaminophen 325 MG TABLET PO PRN (00:44)
[2019-08-29] MEDS ORDERED: Naloxone 0.4 MG/ML INJ IVP PRN (00:44)
[2019-08-29] MEDS ORDERED: Morphine Sulfate 2 MG/ML SYRINGE IVP PRN (00:48)
[2019-08-29] MEDS ORDERED: Insulin DETEMIR 100 UNIT/ML X5UNITS SQ SCH (01:00)
[2019-08-29] MEDS ORDERED: traZODone 50 MG TABLET PO SCH ×2 (01:58→21:00)
[2019-08-29] MEDS: Gabapentin 300 MG CAPSULE PO SCH ×2 (02:20→10:16)
[2019-08-29 02:25] LABS: Basophils # 0.1 K/mcL (0.0-0.2); Eosinophils # 0.2 K/mcL (0.0-0.6); Eosinophils % 3.9 %; Hemoglobin 14.8 g/dL (12.9-16.9); Immature Granulocytes % 0.6 % (0-4); Lymphocytes # 1.4 K/mcL (0.6-4.6); Lymphocytes % 26.2 %; Mean Corpuscular HGB Conc 32.9 g/dL (31.6-35.5); Mean Corpuscular Hemoglobin 29.5 pg (28.0-33.3); Mean Corpuscular Volume 89.8 fL (83.0-100.0); Mean Platelet Volume 10.9 fL (9.4-12.4); Monocytes # 0.5 K/mcL (0.0-1.3); Monocytes % 8.7 %; Neutrophils # 3.1 K/mcL (1.6-8.9); Platelet Count 154 K/mcL (140-400); Red Blood Count 5.01 M/mcL (4.19-5.50); Red Cell Distribution Width 13.4 % (11.5-14.5); Segmented Neutrophils % 59.6 %; White Blood Count 5.2 K/mcL (4.3-11.1)
[2019-08-29 02:40] LABS: Albumin 3.9 g/dL (3.5-5.7); Albumin/Globulin Ratio 1.7 (1.1-2.2); Bilirubin,Total 0.5 mg/dL (0.3-1.0); Calcium 9.2 mg/dL (8.6-10.3); Chol/HDL Ratio 5.1 (0-4.9); Globulin 2.3 g/dL (2.4-3.5); Total Protein 6.2 g/dL (6.4-8.9)
[2019-08-29 02:49] LABS: Thyroid Stimulating Hormone 5.178 mcIU/mL (0.340-5.600)
[2019-08-29] MEDS ORDERED: Regadenoson 0.4 MG/5 ML SYRINGE IVP ONE (07:53)
[2019-08-29] MEDS ORDERED: carvediloL 6.25 MG TABLET PO SCH (08:00)
[2019-08-29] MEDS ORDERED: Aspirin 81 MG TAB.CHEW PO SCH (09:00)
[2019-08-29] MEDS ORDERED: Furosemide 20 MG TABLET PO SCH (09:00)
[2019-08-29] MEDS ORDERED: *HR* Heparin 5,000 UNIT/ML VIAL SQ SCH (09:00)
[2019-08-29] MEDS ORDERED: amLODIPine 5 MG TABLET PO SCH (09:00)
[2019-08-29] MEDS ORDERED: Budesonide/Formoterol 160/4.5 1 PUFF INH IH SCH (10:00)
[2019-08-29] MEDS: Insulin LISPRO 300 UNITS/3 ML VIAL SQ SCH ×2 (10:17→14:35)
[2019-08-29 11:54] VITALS: BP 153/89
[2019-08-30] MEDS ORDERED: Isosorbide MONOnitrate (24 HR) 60 MG TAB.ER.24H PO SCH (09:00)
== END 2019-08-29 15:19 | disposition home or self-care (01) ==
LOC: EMEROOARM 22:38 → 3BNU 22:38
PROVIDERS: ADMIT Internal Medicine; ATTEND Internal Medicine

== ENCOUNTER 2020-01-06 11:22 | Observation (INO) ==
[2020-01-06] MEDS: 0.9 % Sodium Chloride 1,000 ML IVC SCH ×2 (12:10→23:09)
[2020-01-06] MEDS ORDERED: Nitroglycerin 1,000 MCG/10 ML VIAL IV ONE (13:10)
[2020-01-06] MEDS ORDERED: *HR* Heparin 10,000 UNIT/10 ML VIAL ONE (13:10)
[2020-01-06] MEDS ORDERED: ISOVUE-370 200 ML INFUS..BTL ONE (13:10)
[2020-01-06] MEDS ORDERED: 0.9 % Sodium Chloride 1,000 ML ONE (13:10)
[2020-01-06] MEDS ORDERED: Heparin 1,000 UNITS/500 mL 500 ML ONE (13:10)
[2020-01-06] MEDS ORDERED: *HR* FentaNYL (PF) 100 MCG/2 ML VIAL ONE (13:46)
[2020-01-06] MEDS ORDERED: *HR* Midazolam HCl 2 MG/2 ML VIAL ONE (13:46)
[2020-01-06] MEDS ORDERED: Tirofiban 12.5 MG/250ML 12.5 MG/250 ML BAG ONE (14:12)
[2020-01-06] MEDS ORDERED: Perflutren Lipid Microsphere 1.3 ML in 0.9 % Sodium Chloride 8.7 ML IVP PRN ×2 (15:09→18:59)
[2020-01-06] MEDS ORDERED: Acetaminophen 325 MG TABLET PO PRN (16:49)
[2020-01-06] MEDS: carvediloL 6.25 MG TABLET PO SCH (17:30)
[2020-01-06] MEDS: Insulin NPH/REG 70/30 100 UNIT/ML (x5UNIT) SQ SCH (17:30)
[2020-01-06] MEDS: Budesonide/Formoterol 160/4.5 1 PUFF INH IH SCH (20:14)
[2020-01-06] MEDS: Gabapentin 300 MG CAPSULE PO SCH (20:59)
[2020-01-06] MEDS: traZODone 50 MG TABLET PO SCH (23:06)
[2020-01-07 02:39] LABS: Hematocrit 41.3 % (37.5-50.1); Hemoglobin 13.4 g/dL (12.9-16.9)
[2020-01-07 02:55] LABS: BUN/Creatinine Ratio 14 (6-26); Blood Urea Nitrogen 21 mg/dL (8-23); eGFR For African Americans 56 (> 60); eGFR For Non-African Americans 46 (> 60)
[2020-01-07] MEDS: Budesonide/Formoterol 160/4.5 1 PUFF INH IH SCH ×2 (07:41→22:54)
[2020-01-07] MEDS: Gabapentin 300 MG CAPSULE PO SCH ×2 (09:03→20:07)
[2020-01-07] MEDS: carvediloL 6.25 MG TABLET PO SCH ×2 (09:03→17:32)
[2020-01-07] MEDS: Aspirin 81 MG TAB.CHEW PO SCH (09:03)
[2020-01-07] MEDS: amLODIPine 5 MG TABLET PO SCH (09:03)
[2020-01-07] MEDS: *HR* Pioglitazone 15 MG TABLET PO SCH (09:03)
[2020-01-07] MEDS: Furosemide 20 MG TABLET PO SCH (09:03)
[2020-01-07] MEDS: Insulin NPH/REG 70/30 100 UNIT/ML (x5UNIT) SQ SCH ×2 (09:04→17:32)
[2020-01-07] MEDS: 0.9 % Sodium Chloride 1,000 ML IVC SCH ×2 (09:08→23:29)
[2020-01-07] MEDS ORDERED: *HR* Midazolam HCl 2 MG/2 ML VIAL IVP PRN (13:37)
[2020-01-07] MEDS ORDERED: 0.9 % Sodium Chloride 500 ML IVC ONE (13:37)
[2020-01-07] MEDS ORDERED: Lidocaine Viscous Oral Soln 15 ML SOLUTION MM PRN (13:37)
[2020-01-07] MEDS ORDERED: *HR* Midazolam HCl 5 MG/5 ML VIAL IVP ONE ×2 (13:46→13:47)
[2020-01-07] MEDS: *HR* FentaNYL (PF) 100 MCG/2 ML VIAL IVP PRN ×2 (14:00→14:05)
[2020-01-07] MEDS ORDERED: Perflutren Lipid Microsphere 1.3 ML in 0.9 % Sodium Chloride 8.7 ML IVP PRN (15:11)
[2020-01-07] MEDS: traZODone 50 MG TABLET PO SCH (23:28)
[2020-01-08] MEDS: 0.9 % Sodium Chloride 1,000 ML IVC SCH ×2 (04:42→13:42)
[2020-01-08] MEDS: Budesonide/Formoterol 160/4.5 1 PUFF INH IH SCH (07:53)
[2020-01-08] MEDS: amLODIPine 5 MG TABLET PO SCH (09:13)
[2020-01-08] MEDS: carvediloL 6.25 MG TABLET PO SCH (09:13)
[2020-01-08] MEDS: Gabapentin 300 MG CAPSULE PO SCH (09:14)
[2020-01-08] MEDS: *HR* Pioglitazone 15 MG TABLET PO SCH (09:14)
[2020-01-08] MEDS: Furosemide 20 MG TABLET PO SCH (09:14)
[2020-01-08] MEDS: Aspirin 81 MG TAB.CHEW PO SCH (09:14)
[2020-01-08] MEDS: Insulin NPH/REG 70/30 100 UNIT/ML (x5UNIT) SQ SCH (09:27)
[2020-01-08 12:12] VITALS: BP 119/71
== END 2020-01-08 13:58 | disposition home or self-care (01) ==
LOC: INVDIALAB 11:22 → 3BNU 11:22
PROVIDERS: ADMIT Internal Medicine Cardiovascular Disease; ATTEND Internal Medicine Cardiovascular Disease